=== PATIENT | male | born 1945 | race Hispanic/Latino ===

== ENCOUNTER 2018-05-06 03:59 | Inpatient (IN) | payer MEDICARE ==
[~2018-05-06] VITALS: Ht 170.2 cm; Wt 96.7 kg
[~2018-05-06 03:59] MED LIST: ALLOPURINOL100 MG; BUMETANIDE1 MG PO; CYCLOSPORINE25 M2; FERROUS SULFAT325 MG PO; JANUVIA100 MG PO; NEXIUM40 MG PO; NIZATIDINE PO; PRAVASTATIN SOD20 MG PO; SIROLIMUS PO; SULFAMETHOXAZOLE; TRIMETHOPRIM; VITAMIN D32000 UNIT PEG; Z.0.CRESTOR20 MG PO; Z.0.FOLIC ACID1 MG PO; Z.0.FUROSEMIDE20 MG PO; Z.0.METOPROLOL SUC10 PO; Z.0.MULTIVITAMINS1 E; Z.0.PREDNISONE5 MG PO; Z.0.RAMIPRIL2.5 MG PO; Z.0.SERTRALINE HCL25 PO; Z.0.TORSEMIDE20 MG PO; Z.0.VITAMIN D3 1,01 PO
--- OUTSIDE RECORDS SUMMARY | 2018-05-06 04:02 | XMS REPORT | Summary of Care ---
Author Author [facility] [place] Organization [facility] [place] Address Unknown Phone Unavailable Encounter HQ Encntr_alias(FIN) [id number] Date(s): 11/23/16 - 11/23/16 [facility] [place] [address] [phone] Discharge Disposition: Home or Self Care Attending Physician: Rodolfo Ho MD Vital Signs No data available for this section Problem List No data available for this section Allergies, Adverse Reactions, Alerts No data available for this section Medications No data available for this section Results No data available for this section Immunizations No data available for this section Procedures No data available for this section Social History No data available for this section Assessment and Plan No data available for this section
--- OUTSIDE RECORDS SUMMARY | 2018-05-06 04:02 | XMS REPORT | Summary of Care ---
Author Author [facility] [place] Organization [facility] [place] Address Unknown Phone Unavailable Encounter HQ Encntr_alexrhianna(FIN) [id number] Date(s): 09/26/17 - 09/26/17 [facility] [place] [address] [phone] Discharge Disposition: Home or Self Care Attending [...]
--- OUTSIDE RECORDS SUMMARY | 2018-05-06 04:02 | XMS REPORT | Continuity of Care Document ---
Author Author [facility] Address Unknown Phone Unavailable Problems Problem Status Onset Date Classification Date Reported Comments Source R52 - "PAIN, UNSPECIFIED" I65.02 - OCCLU Active 11/28/2016 [facility] [place] 719.47 - JOINT PAIN-ANKL Active 06/14/2011 [facility] [place] Medications Medication Details Route Status Patient Instructions Ordering Provider Order Date Source Allergies, Adverse Reactions, Alerts Substance Category Reaction Severity Reaction type Status Date Reported Comments Source Immunizations Immunization Date Given Site Status Last Updated Comments Source Results Order Name Results Value Reference Range Date Interpretation Comments Source Bladder US Bladder US EXAM: Bladder US, Renal transplant US HISTORY: - POST VOID, CRF, TRANSPLANT COMPARISON: 11/27/2016 Sonographic imaging of the transplant kidney and bladder were performed. FINDINGS: Transplant kidney measures 13 cm. There is no hydronephrosis. The renal transplant demonstrates stable hyperechoic focus possibly prominent medullary sinus fat or angiomyolipoma measuring up to 2 cm. The transplant renal artery and vein are patent. Peak systolic velocity in the transplant renal artery is 124 cm/s. There is an atrophic [place] left kidney. The urinary bladder appears normal. During the exam, the bladder volume was 214 mL. Post void, 30 mL remained. Transplant ureteral jet is patent. IMPRESSION: Stable appearance of the transplant kidney since the prior abdominal ultrasound from 11/27/2016. 03/07/2018 - - Read by: Corazon Newton MD Dictated Date/time: 03/07/18 14:29 Electronically Signed by: Corazon Newton MD 03/07/18 14:37 FINAL REPORT LEONEL Hoyos Renal transplant US Renal transplant US EXAM: Bladder US, Renal transplant US HISTORY: - POST VOID, CRF, TRANSPLANT COMPARISON: 11/27/2016 Sonographic imaging of the transplant kidney and bladder were performed. FINDINGS: Transplant kidney measures 13 cm. There is no hydronephrosis. The renal transplant demonstrates stable hyperechoic focus possibly prominent medullary sinus fat or angiomyolipoma measuring up to 2 cm. The transplant renal artery and vein are patent. Peak systolic velocity in the transplant renal artery is 124 cm/s. There is an atrophic [place] left kidney. The urinary bladder appears normal. During the exam, the bladder volume was 214 mL. Post void, 30 mL remained. Transplant ureteral jet is patent. IMPRESSION: Stable appearance of the transplant kidney since the prior abdominal ultrasound from 11/27/2016. 03/07/2018 - - Read by: Corazon Newton MD Dictated Date/time: 03/07/18 14:29 Electronically Signed by: Corazon Newton MD 03/07/18 14:37 FINAL REPORT CHAPIN Hoyos Knee 1-2 Views Bilateral DX Knee 1-2 Views Bilateral DX EXAM: Knee 1-2 Views Bilateral DX HISTORY: - M15.0 Primary generalized (osteo)arthritis COMPARISON: None 2 views of each knee. FINDINGS: No significant joint space narrowing. There is mild irregularity of the left medial femoral condyle. No fracture, dislocation or significant osteophyte formation. IMPRESSION: No acute abnormality. Mild irregularity of the left medial femoral condyle. Cannot exclude an overlying osteochondral lesion. Consider MRI if clinically indicated. 09/26/2017 - - Read by: Corazon Newton MD Dictated Date/time: 09/26/17 15:21 Electronically Signed by: Corazon Newton MD 09/26/17 15:23 FINAL REPORT LEONEL Hoyos Carotid artery Doppler bilat US Carotid artery Doppler bilat US EXAM: Carotid Ultrasound. INDICATION: Transient cerebral ischemia. TECHNIQUE: Grayscale and Doppler sonogram of the carotid arteries. Note: ICA=internal carotid artery. CCA=common carotid artery. PSV=peak systolic velocity. FINDINGS: Right: Mild atherosclerotic calcification involving the common carotid artery and internal carotid artery origins. CCA: PSV 79 cm/s. ICA: PSV 82 cm/s. ICA/CCA PSV ratio: 1.0. Vertebral artery: Cephalad flow. Left: Minimal left CCA internal carotid artery atherosclerotic calcification. CCA: PSV 83 cm/s. ICA: PSV 57 cm/s. ICA/CCA PSV ratio: 0.69. Vertebral artery: Cephalad flow. Other: None. IMPRESSION: 1. No hemodynamically significant carotid stenosis despite atherosclerotic calcification. Note: Stenosis measurements are made indirectly by velocities using 2003 SRU Consensus Conference for Duplex Ultrasound using the below criteria: Stenosis (%): ICA PSV (cm/s) ICA/CCA ratio <50 <125 <2 50-69 125-230 2-4 >70 >230 >4 12/01/2016 - - Read by: Melinda Lim MD Dictated Date/time: 12/01/16 13:22 Electronically Signed by: Melinda Lim MD 12/01/16 13:23 FINAL REPORT LEONEL Hoyos Neck wo contrast MRI Neck wo contrast MRI Magnetic resonance imaging neck soft tissues without contrast 12/01/2016 9:27 AM CDT Clinical: Right neck pain. Comparison: None available. Findings: The examination is limited by patient motion. Fatty replacement of the right parotid gland and right submandibular gland is noted. The remainder of the major salivary glands appear unremarkable. Mild symmetric enlargement of the thyroid gland is seen, without focal mass identified in this noncontrast MRI. The upper aerodigestive tract appears unremarkable. No prevertebral or retropharyngeal space abnormality is seen. The parapharyngeal spaces appear intact. No neck adenopathy is identified. Mild mucosal thickening is seen within the paranasal sinuses and right mastoid air cells. Multilevel cervical spine degenerative changes are present. 2 mm C5-C6 retrolisthesis and severe disc narrowing is present. 4 mm C7-T1 degenerative anterolisthesis is present with significant facet arthrosis. C3-C4 right facet arthrosis is also present with 2 mm anterolisthesis. Mild central canal stenosis is seen at these levels. Significant foraminal stenosis is seen at the C3-C4 and C5-C6 levels. IMPRESSION: 1. No neck mass or cervical adenopathy identified. 2. Nonspecific fat replacement of the right parotid gland and right submandibular gland. 3. Mild paranasal and right mastoid inflammation. 4. Multiple level cervical spine degenerative changes as above. 12/01/2016 - - Read by: Celso Hogan MD Dictated Date/time: 12/01/16 11:21 Electronically Signed by: Celso Hogan MD 12/01/16 12:13 FINAL REPORT LEONEL Hoyos Abdomen complete US Abdomen complete US EXAM: Abdomen complete US HISTORY: - R10.11 Right upper quadrant pain,M54.5 Low back pain COMPARISON: None FINDINGS: Liver: Measures 14.7 cm in length (normal: 13-17 cm). Echogenicity is unremarkable. Portal vein is patent with hepatopedal flow. Biliary: Several gallstones are present. There is no gallbladder wall thickening or sonographic Luke sign to suggest acute cholecystitis. There is no biliary duct dilation. Mid common bile duct measures 3 mm in diameter. Pancreas: No focal lesion. However, certain portions are obscured by overlying bowel gas and unable to be evaluated. Spleen: Measures 11.3 cm in maximal dimension (normal < 13 cm). No focal lesion is seen. Kidneys: The right kidney is absent. The left kidney measures 6.4 cm, atrophic and echogenic. There is a right lower quadrant renal transplant which demonstrates hyperechoic but not definitely calcified foci, possibly prominent medullary sinus fat or angiomyolipomas measuring up to 1.9 cm. renal artery and vein are patent in the hilum No hydronephrosis is seen. Vascular: Visualized portions of the IVC are patent. No obvious aneurysmal dilatation of the aorta. IMPRESSION: Cholelithiasis is noted without evidence of cholecystitis. There is a right lower quadrant renal transplant which demonstrates hyperechoic but not definitely calcified foci, possibly prominent medullary sinus fat or angiomyolipomas measuring up to 1.9 cm. 11/27/2016 - - Read by: Corazon Newton MD Dictated Date/time: 11/27/16 14:47 Electronically Signed by: Corazon Newton MD 11/27/16 14:52 FINAL REPORT CHAPIN Hoyos Spine lumbar series DX Spine lumbar series DX EXAM: Spine lumbar series DX HISTORY: - M54.5 Low back pain COMPARISON: 10/22/2012 There is grade 1 anterolisthesis of L5 on S1 with pars defects noted. There is disc space narrowing and degenerative changes of the L5-S1 endplate. No vertebral body height loss is seen. IMPRESSION: Grade 1 spondylolisthesis at L5-S1. No significant change. 11/23/2016 - - Read by: Corazon Newton MD Dictated Date/time: 11/23/16 15:27 Electronically Signed by: Corazon Newton MD 11/23/16 15:28 FINAL REPORT LEONEL Hoyos Hip bilat w pelvis and both lat hips DX Hip bilat w pelvis and both lat hips DX EXAM: Hip bilat w pelvis and both lat hips DX HISTORY: pain in left hip m25.552 - pain in right hip m25.551 COMPARISON: 10/22/2012 AP pelvis and lateral view of each hip. Severe osteoarthritic changes of both hips have worsened, including loss of joint space, marginal osteophytes, subchondral sclerosis, and subchondral cyst formation. There is remodeling of the femoral head bilaterally. There is no fracture, dislocation, or radiopaque foreign body. Soft tissues are unremarkable. IMPRESSION: Severe bilateral osteoarthritis, worsened since 2012. - 11/23/2016 - - Read by: Corazon Newton MD Dictated Date/time: 11/23/16 11:13 Electronically Signed by: Corazon Newton MD 11/23/16 11:15 FINAL REPORT CHAPIN Hoyos Chest 2 views Chest 2 views History: Hypertension. Comparison: None Findings: There is mild hazy ill-defined left basilar airspace opacity, otherwise, the lung hayes are clear. There is no pleural effusion or pneumothorax. The cardiomediastinal silhouette, lung volumes and pulmonary vasculature are within normal limits. There is no suspicious lytic or sclerotic lesion of the visualized bony structures, however, there is mild to moderate anterior sided degenerative disc disease involving the mid third region of the thoracic spine, right side greater than left. There is mild aortic knob atherosclerosis. Impression: 1. Left basilar airspace opacity, which may represent atelectasis, scarring or infiltrate. Consider correlation with CT chest to better evaluate if there are no prior exams available for comparison an clinically warranted. 10/22/2012 - - Read by: Eladio Engel Dictated Date/time: 10/22/12 09:51 Electronically Signed by: Eladio Engel MD 10/22/12 09:53 FINAL REPORT CHAP[facility] Spine lumbar minimum 4 views Spine lumbar minimum 4 views Examination: Lumbar spine, 5 views History: pain Comparison: None. Findings: Multiple views of the lumbar spine show 5 nonrib bearing lumbar vertebra. No acute compression fracture is seen. Grade 1 anterolisthesis of L5 over S1 by 12 mm is seen with superimposed severe disc height loss and nonmarginal osteophyte formation. Unilateral right L5 pars interarticularis defect is noted. Mild marginal osteophyte formation at L3-L4 is seen. Arterial calcifications are noted. IMPRESSION: Unilateral right L5 pars interarticularis defect with grade 1 anterolisthesis of L5 over S1 by 12 mm and superimposed severe degenerative disc disease. 10/22/2012 - - Read by: Dannie Alexander Dictated Date/time: 10/22/12 09:52 Electronically Signed by: Dannie Alexander MD 10/22/12 09:57 FINAL REPORT LEONEL Hoyos Spine sacrum AP and Lat Spine sacrum AP and Lat SACRUM SERIES CLINICAL HISTORY: Sacral pain. COMPARISON IMAGING: None. FINDINGS: Two views were submitted for evaluation. No fracture, dislocation, or radiopaque foreign body is seen. Alignment appears maintained. Soft tissues are unremarkable. IMPRESSION: No significant abnormality. 10/22/2012 - - Read by: Gerardo Cullen Dictated Date/time: 10/22/12 14:11 Electronically Signed by: Gerardo Cullen MD 10/22/12 14:12 FINAL REPORT LEONEL Hoyos Hip bilateral w pelvis and both lat hips Hip bilateral w pelvis and both lat hips BILATERAL HIP SERIES CLINICAL HISTORY: Bilateral hip pain. COMPARISON IMAGING: None. FINDINGS: Three views of the hips were submitted for interpretation. Severe osteoarthritic changes are present at both hips, including loss of joint space, marginal osteophytes, subchondral sclerosis, and subchondral cyst formation. There is no fracture, dislocation, or radiopaque foreign body. Soft tissues are unremarkable. IMPRESSION: Severe bilateral osteoarthritis. 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 CARTER 06/14/2011 Active LEONEL Hoyos [facility] [place] [facility] [id number] Rodolfo Ho 11/23/2016 11/24/2016 LEONEL Hoyos [facility] [place] [facility] [id number] Rodolfo Ho 11/27/2016 11/28/2016 [facility] [place] [facility] [place] [facility] [id number] Tao Ortega 12/01/2016 12/02/2016 MH [facility] [place] [facility] [place] [facility] [id number] Rodolfo Ho 09/26/2017 09/27/2017 MH [facility] [place] Procedures Procedure Code Date Perfomer Comments Source
--- OUTSIDE RECORDS SUMMARY | 2018-05-06 04:02 | XMS REPORT | Summary of Care ---
Author Author [facility] [place] Organization [facility] [place] Address Unknown Phone Unavailable Encounter HQ Encntr_alias(FIN) [id number] Date(s): 11/27/16 - 11/27/16 [facility] [place] [address] [phone] Discharge Disposition: Home or Self Care Attending [...]
--- OUTSIDE RECORDS SUMMARY | 2018-05-06 04:02 | XMS REPORT | Summary of Care ---
Author Author [facility] [place] Organization [facility] [place] Address Unknown Phone Unavailable Encounter HQ Encntr_alirhianna(FIN) [id number] Date(s): 12/01/16 - 12/01/16 [facility] [place] [address] [phone] Discharge Disposition: Home or Self Care Attending Physician: Tao Ortega MD Vital Signs No data available for [...]
--- OUTSIDE RECORDS SUMMARY | 2018-05-06 04:02 | XMS REPORT | Clinical Summary ---
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 Active calcium carbonate-vitamin Take 1 tablet 0 D3 (CALCIUM-VITAMIN D) by mouth 500 mg(1,250mg) -200 unit nightly . per tablet Active cycloSPORINE (SANDIMMUNE) Take 50 mg by 0 25 MG capsule mouth 2 (two) times daily Dose confirmed and verified with patient's daughter.. Active metoprolol (LOPRESSOR) Take 50 mg by 0 100 MG tablet mouth 2 (two) times daily . Active allopurinol (ZYLOPRIM) Take 100 mg 0 100 MG tablet by mouth 2 (two) times daily . Active FERROUS SULFATE (FEOSOL Take 325 mg 0 ORAL) by mouth daily . Active acetaminophen (TYLENOL) Take 500 mg 0 500 MG tabletIndications: by mouth Pain every 6 (six) hours as needed for Pain. Active pravastatin (PRAVACHOL) Take 80 mg by 0 80 MG tablet mouth nightly. Active omega-3 acid ethyl esters Take 1 g by 0 (LOVAZA) 1 gram capsule mouth 2 (two) times daily. Active MULTIVITAMIN (DAILY-DARLENE Take 1 tablet 0 ORAL) by mouth daily. Active traMADol (ULTRAM) 50 mg Take 50 mg by 0 tablet mouth 3 (three) times daily as needed for Pain. Active cholecalciferol, vitamin Take 1 0 D3, 2,000 unit Cap capsule by mouth daily. Active ondansetron (ZOFRAN ODT) Take 1 tablet 14 tablet 0 4 MG disintegrating (4 mg total) 7 tablet by mouth every 8 (eight) hours as needed for Nausea for up to 14 doses. Active esomeprazole (NEXIUM) 40 Take 1 30 capsule 0 MG capsule capsule (40 7 mg total) by mouth daily. Active amoxicillin (AMOXIL) 500 Take 1 60 capsule 0 MG capsule capsule (500 8 mg total) by mouth 2 (two) times daily To start lifelong after Levaquin completed. Active bumetanide (BUMEX) 2 MG Take 1 tablet 30 tablet 0 tablet (2 mg total) 8 by mouth daily. Active SITagliptin (JANUVIA) 50 Take 0.5 0 MG tablet tablets (25 8 mg total) by mouth daily. 01/05/2018 SITagliptin (JANUVIA) 50 Take 1 tablet 30 tablet 11 MG tablet (50 mg total) 7 by mouth daily. 01/29/2018 Discontinued amoxicillin (AMOXIL) 500 Take 1 60 capsule 11 MG capsule capsule (500 7 mg total) by mouth 2 (two) times daily To start lifelong after Levaquin completed. 01/29/2018 Discontinued bumetanide (BUMEX) 2 MG Take 1 tablet 60 tablet 2 tablet (2 mg total) 7 by mouth 2 (two) times daily. 01/29/2018 Discontinued SITagliptin (JANUVIA) 50 Take 50 mg by 0 MG tablet mouth daily. 02/03/2018 cefdinir (OMNICEF) 300 MG Take 1 5 capsule 0 capsule capsule (300 8 mg total) by mouth daily for 5 days. 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 Hx of kidney transplant--DDKT 200509/19/2013 Cellulitis 07/28/2013 Anemia of chronic disease 07/25/2012 Chronic diastolic CHF (congestive heart failure) 07/25/2012 ESRD (end stage renal disease) 07/12/2012 HTN (hypertension) 07/12/2012 Encounters Care Team Description Date Type Specialty Quintin Willett Jr., MD Kaldis, Arun Tomas MD Sepsis, due to unspecified organism (HCC) (Primary Dx); Cellulitis, unspecified cellulitis site; Hypertension, uncontrolled; Mixed hyperlipidemia; Type 2 diabetes mellitus with stage 3 chronic kidney disease, without long-term current use of insulin (HCC); Hx of kidney transplant--DDKT 200501/24/2018 [facility] Internal Medicine - Encounter 01/29/2018 after 05/05/2017 Family History Relation Name Status Comments Brother Alive 77 yrs old - good health Brother Alive 75 yrs old peritonitis / probs with prostate Brother Alive 61 yrs old - diabetes Daughter Alive 42 yrs old - good health Daughter Alive 29 yrs old - good health Daughter Alive 19 yrs old - good health Father Sepsis following thorasic hernia surgery (Age 64) Mother Cancer - gallbladder or liver (Age 74) Sister CoD - pneumonia (Age 35) Sister Alive ~ 72 yrs old - good health Sister Alive ~ 68 yrs old - good health Sister Alive ~ 65 yrs old - good health Son abdominal / GI problems (Age 3 mos ) Son Alive 40 yrs old - good health Son Alive 38 yrs old - good health Son Alive 30 yrs old - good health Social History Date Tobacco Use Types Packs/Day Years Used Never Smoker Smokeless Tobacco: Never Used Alcohol Use Drinks/Week oz/Week Comments No Sex Assigned at Date Recorded Not on file Industry Job Start Date Occupation Not on file Not on file Not on file Travel End Travel History Travel Start No recent travel history available. Last Filed Vital Signs Time Taken Vital Sign Reading 01/29/2018 11:55 AM CDT Blood Pressure 162/77 01/29/2018 11:55 AM CDT Pulse 58 01/29/2018 11:55 AM CDT Temperature 35.8 C (96.5 F) 01/29/2018 11:55 AM CDT Respiratory Rate 19 01/29/2018 11:55 AM CDT Oxygen Saturation 93% - Inhaled Oxygen - Concentration 01/29/2018 4:48 AM CDT Weight 93.7 kg (206 lb 9 oz) 01/24/2018 12:20 PM CDT Height 170.2 cm (5' 7") 01/29/2018 4:48 AM CDT Body Mass Index 32.35 Plan of Treatment Health Maintenance Due Date Last Done Comments INFLUENZA VACCINE 02/11/2018 Procedures Comments Procedure Name Priority Date/Time Associated Diagnosis RHYTHM STRIP - SCAN 01/30/2018 2:44 PM CDT POCT-GLUCOSE METER Routine 01/29/2018 11:59 AM CDT POCT-GLUCOSE METER Routine 01/29/2018 6:59 AM CDT CBC W/PLT COUNT & AUTO Routine 01/29/2018 DIFFERENTIAL 5:03 AM CDT CYCLOSPORINE LEVEL Routine 01/29/2018 5:03 AM CDT MAGNESIUM Routine 01/29/2018 5:03 AM CDT BASIC METABOLIC PANEL (7) Routine 01/29/2018 5:03 AM CDT CBC W/PLT COUNT & AUTO Routine 01/29/2018 DIFFERENTIAL 5:03 AM CDT US TRANSPLANT KIDNEY JASMIN 01/29/2018 12:20 AM CDT POCT-GLUCOSE METER Routine 01/28/2018 9:37 PM CDT POCT-GLUCOSE METER Routine 01/28/2018 5:52 PM CDT POCT-GLUCOSE METER Routine 01/28/2018 2:09 PM CDT CREATININE, RANDOM URINE Routine 01/28/2018 1:10 PM CDT PROTEIN, RANDOM URINE Routine 01/28/2018 1:10 PM CDT POCT-GLUCOSE METER Routine 01/28/2018 8:29 AM CDT CBC W/PLT COUNT & AUTO Routine 01/28/2018 DIFFERENTIAL 5:35 AM CDT CYCLOSPORINE LEVEL Routine 01/28/2018 5:35 AM CDT MAGNESIUM Routine 01/28/2018 5:35 AM CDT BASIC METABOLIC PANEL (7) Routine 01/28/2018 5:35 AM CDT CBC W/PLT COUNT & AUTO Routine 01/28/2018 DIFFERENTIAL 5:35 AM CDT POCT-GLUCOSE METER Routine 01/27/2018 9:05 PM CDT POCT-GLUCOSE METER Routine 01/27/2018 5:03 PM CDT POCT-GLUCOSE METER Routine 01/27/2018 12:05 PM CDT POCT-GLUCOSE METER Routine 01/27/2018 7:41 AM CDT CBC W/PLT COUNT & AUTO Routine 01/27/2018 DIFFERENTIAL 5:37 AM CDT CYCLOSPORINE LEVEL Routine 01/27/2018 5:37 AM CDT MAGNESIUM Routine 01/27/2018 5:37 AM CDT BASIC METABOLIC PANEL (7) Routine 01/27/2018 5:37 AM CDT CBC W/PLT COUNT & AUTO Routine 01/27/2018 DIFFERENTIAL 5:37 AM CDT URINALYSIS W/ MICROSCOPIC Routine 01/26/2018 9:50 PM CDT POCT-GLUCOSE METER Routine 01/26/2018 4:56 PM CDT POCT-GLUCOSE METER Routine 01/26/2018 12:09 PM CDT POCT-GLUCOSE METER Routine 01/26/2018 7:38 AM CDT CBC W/PLT COUNT & AUTO Routine 01/26/2018 DIFFERENTIAL 5:46 AM CDT CYCLOSPORINE LEVEL Routine 01/26/2018 5:46 AM CDT MAGNESIUM Routine 01/26/2018 5:46 AM CDT BASIC METABOLIC PANEL (7) Routine 01/26/2018 5:46 AM CDT CBC W/PLT COUNT & AUTO Routine 01/26/2018 DIFFERENTIAL 5:46 AM CDT POCT-GLUCOSE METER Routine 01/25/2018 9:16 PM CDT POCT-GLUCOSE METER Routine 01/25/2018 5:25 PM CDT URINE CULTURE Routine 01/25/2018 4:03 PM CDT POCT-GLUCOSE METER Routine 01/25/2018 12:48 PM CDT POCT-GLUCOSE METER Routine 01/25/2018 7:31 AM CDT CBC W/PLT COUNT & AUTO Routine 01/25/2018 DIFFERENTIAL 5:21 AM CDT CYCLOSPORINE LEVEL Routine 01/25/2018 5:21 AM CDT HEMOGLOBIN A1C Routine 01/25/2018 5:21 AM CDT MAGNESIUM Routine 01/25/2018 5:21 AM CDT BASIC METABOLIC PANEL (7) Routine 01/25/2018 5:21 AM CDT CBC W/PLT COUNT & AUTO Routine 01/25/2018 DIFFERENTIAL 5:21 AM CDT US TESTICULAR (SCROTUM) JASMIN 01/24/2018 10:35 PM CDT POCT-GLUCOSE METER Routine 01/24/2018 9:15 PM CDT LACTIC ACID, VENOUS, STAT 01/24/2018 WHOLE BLOOD 4:22 PM CDT POCT-GLUCOSE METER Routine 01/24/2018 4:15 PM CDT URINE CULTURE STAT 01/24/2018 3:25 PM CDT URINALYSIS W/ MICROSCOPIC STAT 01/24/2018 3:24 PM CDT BLOOD CULTURE STAT 01/24/2018 1:49 PM CDT POCT-LACTIC ACID, VENOUS Routine 01/24/2018 1:47 PM CDT CBC W/PLT COUNT & AUTO STAT 01/24/2018 DIFFERENTIAL 1:15 PM CDT BASIC METABOLIC PANEL (7) STAT 01/24/2018 1:15 PM CDT CBC W/PLT COUNT & AUTO STAT 01/24/2018 DIFFERENTIAL 1:15 PM CDT BLOOD CULTURE STAT 01/24/2018 1:15 PM CDT after 05/05/2017 Results * RHYTHM STRIP - SCAN (01/30/2018 2:44 PM CDT) Narrative Performed At * POC-Glucose meter (01/29/2018 11:59 AM CDT) Only the most recent of 19 results within the time period is included. POC-Glucose Meter 158 (H)Comment: TESTED AT 70 - 110 mg/dL [facility] [address] [facility] [id number] Specimen Blood Performing Organization Address City/State/Zipcode Phone Number [facility] [address] [place] [address] [facility] * CBC with platelet count + automated diff (01/29/2018 5:03 AM CDT) Only the most recent of 6 results within the time period is included. WBC 6.9 3.5 - 10.5 K/L [facility] RBC 4.85 4.63 - 6.08 M/L [facility] Hemoglobin 14.7 13.7 - 17.5 GM/DL [facility] Hematocrit 45.4 40.1 - 51.0 % [facility] MCV 93.6 (H) 79.0 - 92.2 fL [facility] MCH 30.3 25.7 - 32.2 pg [facility] MCHC 32.4 32.3 - 36.5 GM/DL [facility] RDW 14.3 11.6 - 14.4 % [facility] Platelets 214 150 - 450 K/CU MM [facility] MPV 11.2 9.4 - 12.4 fL [facility] nRBC 0 0 - 0 /100 WBC [facility] % Neutros 50 % [facility] % Lymphs 36 % [facility] % Monos 10 % [facility] % Eos 3 % [facility] % Baso 1 % [facility] # Neutros 3.44 1.78 - 5.38 K/L [facility] # Lymphs 2.46 1.32 - 3.57 K/L [facility] # Monos 0.69 0.30 - 0.82 K/L [facility] # Eos 0.21 0.04 - 0.54 K/L [facility] # Baso 0.04 0.01 - 0.08 K/L [facility] Immature 0 0 - 1 % [facility] Granulocytes-Relative [facility] Specimen Blood Performing Organization Address City/[facility]/Zipcode Phone Number [address] [address] [facility] * Cyclosporine level (01/29/2018 5:03 AM CDT) Only the most recent of 5 results within the time period is included. Cyclosporine Lvl 81 <400 ng/mL [facility] Specimen Blood Performing Organization Address City/State/Zipcode Phone Number [address] [address] [phone] [place] [address] * Magnesium (01/29/2018 5:03 AM CDT) Only the most recent of 5 results within the time period is included. Magnesium 2.1 1.6 - 2.6 mg/dL [facility] Specimen Blood Performing Organization Address City/[facility] Phone Number [address] [address] [phone] [place] [address] * Basic Metabolic Panel (01/29/2018 5:03 AM CDT) Only the most recent of 6 results within the time period is included. Sodium 137 136 - 145 meq/L [facility] Potassium 4.2 3.5 - 5.1 meq/L [facility] Chloride 100 98 - 107 meq/L [facility] CO2 26 22 - 29 meq/L [facility] BUN 62 (H) 7 - 21 mg/dL [facility] Creatinine 3.93 (H) 0.57 - 1.25 mg/dL [facility] Glucose 145 (H) 70 - 105 mg/dL [facility] Calcium 9.6 8.4 - 10.2 mg/dL [facility] EGFR 15Comment: ESTIMATED GFR IS mL/min/1.73 sq m [facility] NOT ACCURATE CREATININE [facility] CLEARANCE IN PREDICTING GLOMERULAR FILTRATION RATE. ESTIMATED GFR IS NOT APPLICABLE FOR DIALYSIS PATIENTS. Specimen Blood Performing Organization Address City/State/Zipcode Phone Number [facility] [address] [place] [address] [facility] * US transplant kidney (01/29/2018 12:20 AM CDT) Narrative Performed At FINAL REPORT [employer] Exam: Ultrasound transplant kidney Clinical History:sugey in renal transplant Comparison: Renal transplant ultrasound 04/28/2016. Technique: Renal transplant ultrasound was performed with duplex Doppler. Findings: There is a right lower quadrant renal transplant graft which measures 13.6 x 6.2 x 6.3 cm with cortical thickness of 1.0 cm. The echogenicity is isoechoic to the liver parenchyma. There is no hydronephrosis, perinephric fluid or shadowing stone. The urinary bladder is mildly distended with a volume of 92 cc. Color and spectral Doppler evaluation of the transplant kidney demonstrates patency and normal vascular waveforms of the external iliac artery, arterial anastomosis, main renal artery, external iliac vein, venous anastomosis, and main renal vein. There is no velocity gradient to suggest significant stenosis. The peak arterial systolic velocity in the iliac limb above and below the anastomosis is 150 cm/sec and 97.2 cm/sec respectively, 111 cm/sec at the anastomosis and 61.2 cm/sec in the main renal artery. The peak venous systolic velocity above and below the anastomosis is 39.7 cm/sec and 31.8 cm/sec respectively, 25.6 cm/sec at the anastomosis and 22.1 cm/sec in the main renal vein. The resistive indices in the upper, inter and lower polar regions are 0.75, 0.74 and 0.69 respectively. The acceleration times and acceleration indices are normal. Impression: Right lower quadrant transplant kidney without hydronephrosis. Unremarkable Doppler evaluation of the transplant kidney. Signed: Jaiden Bustos MD Report Verified Date/Time:01/29/2018 02:16:00 Reading Location: [facility] B1 C013Y CT Body Reading Room Procedure Note Interface, External Ris In - 01/29/2018 2:18 AM CDT FINAL REPORT Exam: Ultrasound transplant kidney Clinical History: sugey in renal transplant Comparison: Renal transplant ultrasound 04/28/2016. Technique: Renal transplant ultrasound was performed with duplex Doppler. Findings: There is a right lower quadrant renal transplant graft which measures 13.6 x 6.2 x 6.3 cm with cortical thickness of 1.0 cm. The echogenicity is isoechoic to the liver parenchyma. There is no hydronephrosis, perinephric fluid or shadowing stone. The urinary bladder is mildly distended with a volume of 92 cc. Color and spectral Doppler evaluation of the transplant kidney demonstrates patency and normal vascular waveforms of the external iliac artery, arterial anastomosis, main renal artery, external iliac vein, venous anastomosis, and main renal vein. There is no velocity gradient to suggest significant stenosis. The peak arterial systolic velocity in the iliac limb above and below the anastomosis is 150 cm/sec and 97.2 cm/sec respectively, 111 cm/sec at the anastomosis and 61.2 cm/sec in the main renal artery. The peak venous systolic velocity above and below the anastomosis is 39.7 cm/sec and 31.8 cm/sec respectively, 25.6 cm/sec at the anastomosis and 22.1 cm/sec in the main renal vein. The resistive indices in the upper, inter and lower polar regions are 0.75, 0.74 and 0.69 respectively. The acceleration times and acceleration indices are normal. Impression: Right lower quadrant transplant kidney without hydronephrosis. Unremarkable Doppler evaluation of the transplant kidney. Signed: Jaiden Bustos MD Report Verified Date/Time: 01/29/2018 02:16:00 Reading Location: [address] Body Reading Room Performing Organization Address City/State/Zipcode Phone Number [facility] * Protein, random urine (01/28/2018 1:10 PM CDT) Protein, Urine 58 (H) 0 - 14 mg/dL [facility] Specimen Urine - Urine, Clean Catch Performing Organization Address City/State/Zipcode Phone Number [facility] [address] [place] [address] [facility] * Creatinine, random urine (01/28/2018 1:10 PM CDT) Creatinine, Ur 54.8 mg/dL [facility] Specimen Urine - Urine, Clean Catch Narrative Performed At Reference Range: No Normals [facility] Performing Organization Address [facility] Phone Number [facility] [address] [place] [address] [facility] * Urinalysis w/Microscopic (01/26/2018 9:50 PM CDT) Only the most recent of 2 results within the time period is included. Color, UA Light Yellow [facility] Clarity, UA Clear [facility] Specific [place], UA 1.004 1.001 - 1.035 [facility] pH, UA 7.0 5.0 - 8.0 [facility] Protein, UA 30 mg/dL (A) Negative [facility] Glucose, UA Negative Negative [facility] Ketones, UA Negative Negative [facility] Bilirubin, UA Negative Negative [facility] Blood, UA Trace (A) Negative [facility] Nitrite, UA Negative Negative [facility] Leukocytes, UA Negative Negative [facility] Urobilinogen, UA 0.2 0.2 - 1.0 mg/dL [facility] RBC, UA <1 /HPF [facility] WBC, UA <1 /HPF [facility] Specimen Source [facility] Specimen Urine Performing Organization Address City/[facility] Phone Number [facility] [address] [place] [address] [facility] * Urine culture (01/25/2018 4:03 PM CDT) Only the most recent of 2 results within the time period is included. Result No growth [facility] Gram Stain Result No White blood cells seen [facility] Gram Stain Result No organisms seen [facility] Specimen Urine - Urine, Clean Catch Performing Organization Address City/State/Zipcode Phone Number [facility] [address] [place] [address] [facility] * Hemoglobin A1c (01/25/2018 5:21 AM CDT) Hemoglobin A1C 6.8 (H) 4.3 - 6.1 % [facility] Specimen Blood - Arm, Right Performing Organization Address City/[facility]/Zipcode Phone Number [facility] [address] [place] [address] [facility] * US testicular (scrotum) (01/24/2018 10:35 PM CDT) Narrative Performed At FINAL REPORT [facility] Exam: Testicular ultrasound. Clinical History: Scrotal cellulitis. Technique: Testicular ultrasound was performed. Color and spectral Doppler ultrasound was also performed. Comparison is made to prior study dated 01/01/2017. Findings: There is diffuse bilateral scrotal wall thickening and hyperemia. There is no fluid collection to suggest an abscess. RIGHT: The right testicle is normal in size and echogenicity measuring 3.2 x 1.5 x 2 cm. The right epididymis is normal in size. There is mild heterogeneity of the epididymal tail. The right epididymal head measures up to 0.9 cm. There is a 3 mm epididymal head cyst or spermatocele. Color and spectral Doppler evaluation of the right testicle demonstrates normal vascular flow. There is mild hyperemia within the epididymal tail. There is no varicocele or hydrocele. LEFT: The left testicle is normal in size and echogenicity measuring 3.0 x 1.3 x 2.6 cm. The left epididymis is normal in size. There is mild heterogeneity of the epididymal body. The left epididymal head measures up to 1.3 and contains a 5 mm epididymal head cyst or spermatocele. There is a 4 mm epididymal tail cyst versus spermatocele. Color and spectral Doppler evaluation of the left testicle demonstrates normal vascular flow. There is mild hyperemia within the epididymal body. There is no varicocele or hydrocele. Impression: Diffuse scrotal cellulitis. No abscess. Mild bilateral epididymitis. Bilateral subcentimeter epididymal head cysts or spermatoceles. No orchitis or evidence of testicular torsion. Signed: Jaiden Bustos MD Report Verified Date/Time:01/25/2018 05:13:46 Reading Location: [address] Transitional Reading Room Procedure Note Interface, External Ris In - 01/25/2018 5:16 AM CDT FINAL REPORT Exam: Testicular ultrasound. Clinical History: Scrotal cellulitis. Technique: Testicular ultrasound was performed. Color and spectral Doppler ultrasound was also performed. Comparison is made to prior study dated 01/01/2017. Findings: There is diffuse bilateral scrotal wall thickening and hyperemia. There is no fluid collection to suggest an abscess. RIGHT: The right testicle is normal in size and echogenicity measuring 3.2 x 1.5 x 2 cm. The right epididymis is normal in size. There is mild heterogeneity of the epididymal tail. The right epididymal head measures up to 0.9 cm. There is a 3 mm epididymal head cyst or spermatocele. Color and spectral Doppler evaluation of the right testicle demonstrates normal vascular flow. There is mild hyperemia within the epididymal tail. There is no varicocele or hydrocele. LEFT: The left testicle is normal in size and echogenicity measuring 3.0 x 1.3 x 2.6 cm. The left epididymis is normal in size. There is mild heterogeneity of the epididymal body. The left epididymal head measures up to 1.3 and contains a 5 mm epididymal head cyst or spermatocele. There is a 4 mm epididymal tail cyst versus spermatocele. Color and spectral Doppler evaluation of the left testicle demonstrates normal vascular flow. There is mild hyperemia within the epididymal body. There is no varicocele or hydrocele. Impression: Diffuse scrotal cellulitis. No abscess. Mild bilateral epididymitis. Bilateral subcentimeter epididymal head cysts or spermatoceles. No orchitis or evidence of testicular torsion. Signed: Jaiden Bustos MD Report Verified Date/Time: 01/25/2018 05:13:46 Reading Location: [address] Transitional Reading Room Performing Organization Address City/State/Zipcode Phone Number [facility] * Lactic acid, venous, whole blood (01/24/2018 4:22 PM CDT) Lactate, Venous 0.9Comment: Specimen slightly 0.5 - 2.2 mmol/L [facility] hemolyzed [facility] Specimen Blood - Arm, Right Narrative Performed At Effective 09/15/2015: Units/Reference Range Change [facility] New: 0.5-2.2 mmol/LPrevious: 5-20 mg/dL [facility] Performing Organization Address City/[facility] Phone Number [address] [address] [phone] [place] [address] * Blood culture (01/24/2018 1:49 PM CDT) Only the most recent of 2 results within the time period is included. Result No growth in 5 days [facility] Specimen Blood - Arm, Right Performing Organization Address City/[facility] Phone Number [address] [phone] [place] [address] * POC-Lactic Acid, Venous (01/24/2018 1:47 PM CDT) POC-Lactic Acid, Venous 1.8 (H)Comment: TESTED AT 0.9 - 1.7 mmol/L [facility] [address] [place] [id number] Specimen Blood Performing Organization Address [facility] Phone Number [address] [address] [phone] [place] [address] after 05/05/2017 Insurance Payer Benefit Subscriber ID Type Phone Address Plan / Group [facility] xxxxxxxxx MEDICARE [place] CARE [place] [facility] [place] xxxxxxxxx Medicaid OF [place] Advance Directives For more information, please contact: [facility] [address] [place], [place] [id number] Date Inactivated Comments Code Status Date Activated 01/29/2018 3:03 PM Full Code 01/24/2018 3:29 PM This code status was determined by: Patient 01/05/2017 6:49 PM Full Code 01/01/2017 8:02 AM This code status was determined by: Patient 05/01/2016 4:12 PM Full Code 04/26/2016 2:48 AM This code status was determined by: Patient 03/29/2016 9:11 PM Full Code 03/28/2016 5:25 AM This code status was determined by: Patient 02/02/2016 8:23 PM Full Code 02/01/2016 11:29 PM This code status was determined by: Patient
--- OUTSIDE RECORDS SUMMARY | 2018-05-06 04:03 | XMS REPORT ---
Author Author [facility] Address Unknown Phone Unavailable Care Team Providers Care Brim Rounder Name Role Phone JANIESIS Unavailable Unavailable SIS SNELL Unavailable Unavailable NATALI LAWRENCE Unavailable Unavailable SANDRA PEÑALOZA Unavailable Unavailable Problems This patient has no known problems. Allergies, Adverse Reactions, Alerts This patient has no known allergies or adverse reactions. Medications This patient has no known medications. Results Test Description Test Time Test Comments Text Results Atomic Results Result Comments BLOOD CULTURE 2018-01-29 18:00:00 CULTURE (BEAKER) (test zskb=7016) No growth in 5 days BLOOD [id number] 18:00:00* Test Item Value Reference Range Comments CULTURE (BEAKER) (test jgms=3308) No growth in 5 days POCT-GLUCOSE [id number] 12:09:00* Test Item Value Reference Range Comments POC-GLUCOSE METER (BEAKER) (test dcic=8665) 158 mg/dL 70-110 TESTED AT [address] [address] CYCLOSPORINE [id number] 09:29:00* Test Item Value Reference Range Comments CYCLOSPORINE BLOOD (BEAKER) (test ybtj=138) 81 ng/mL <400 BASIC METABOLIC [id number] 09:01:00* Test Item Value Reference Range Comments SODIUM (BEAKER) (test burf=915) 137 meq/L 136-145 POTASSIUM (BEAKER) (test svyw=839) 4.2 meq/L 3.5-5.1 CHLORIDE (BEAKER) (test lqgy=877) 100 meq/L 98-107 CO2 (BEAKER) (test mglu=269) 26 meq/L 22-29 BLOOD UREA NITROGEN (BEAKER) (test uriv=393) 62 mg/dL 7-21 CREATININE (BEAKER) (test mrhd=362) 3.93 mg/dL 0.57-1.25 GLUCOSE RANDOM (BEAKER) (test wmfy=432) 145 mg/dL 70-105 CALCIUM (BEAKER) (test oubq=659) 9.6 mg/dL 8.4-10.2 EGFR (BEAKER) (test pmpe=6981) 15 mL/min/1.73 sq m ESTIMATED GFR IS NOT ACCURATE CREATININE CLEARANCE IN PREDICTING GLOMERULAR FILTRATION RATE. ESTIMATED GFR IS NOT APPLICABLE FOR DIALYSIS PATIENTS. [id number] 09:00:00* Test Item Value Reference Range Comments MAGNESIUM (BEAKER) (test xcfx=775) 2.1 mg/dL 1.6-2.6 POCT-GLUCOSE [id number] 07:40:00* Test Item Value Reference Range Comments POC-GLUCOSE METER (BEAKER) (test keeq=7326) 122 mg/dL 70-110 TESTED AT [facility] [address] [facility] [address] CBC W/PLT COUNT & AUTO [id number] 05:38:00* Test Item Value Reference Range Comments WHITE BLOOD CELL COUNT (BEAKER) (test bpgz=971) 6.9 K/ L 3.5-10.5 RED BLOOD CELL COUNT (BEAKER) (test eovd=597) 4.85 M/ L 4.63-6.08 HEMOGLOBIN (BEAKER) (test qjqx=187) 14.7 GM/DL 13.7-17.5 HEMATOCRIT (BEAKER) (test ivqo=693) 45.4 % 40.1-51.0 MEAN CORPUSCULAR VOLUME (BEAKER) (test yppu=000) 93.6 fL 79.0-92.2 MEAN CORPUSCULAR HEMOGLOBIN (BEAKER) (test ccof=245) 30.3 pg 25.7-32.2 MEAN CORPUSCULAR HEMOGLOBIN CONC (BEAKER) (test fbda=981) 32.4 GM/DL 32.3-36.5 RED CELL DISTRIBUTION WIDTH (BEAKER) (test fcvl=362) 14.3 % 11.6-14.4 PLATELET COUNT (BEAKER) (test czzj=870) 214 K/CU MM 150-450 MEAN PLATELET VOLUME (BEAKER) (test sjpz=398) 11.2 fL 9.4-12.4 NUCLEATED RED BLOOD CELLS (BEAKER) (test kkgs=700) 0 /100 WBC 0-0 NEUTROPHILS RELATIVE PERCENT (BEAKER) (test ncgp=677) 50 % LYMPHOCYTES RELATIVE PERCENT (BEAKER) (test uzvj=735) 36 % MONOCYTES RELATIVE PERCENT (BEAKER) (test qsbd=211) 10 % EOSINOPHILS RELATIVE PERCENT (BEAKER) (test cdlb=629) 3 % BASOPHILS RELATIVE PERCENT (BEAKER) (test qpgq=807) 1 % NEUTROPHILS ABSOLUTE COUNT (BEAKER) (test sfyt=589) 3.44 K/ L 1.78-5.38 LYMPHOCYTES ABSOLUTE COUNT (BEAKER) (test shmp=572) 2.46 K/ L 1.32-3.57 MONOCYTES ABSOLUTE COUNT (BEAKER) (test xxve=104) 0.69 K/ L 0.30-0.82 EOSINOPHILS ABSOLUTE COUNT (BEAKER) (test ojhd=111) 0.21 K/ L 0.04-0.54 BASOPHILS ABSOLUTE COUNT (BEAKER) (test ykmh=936) 0.04 K/ L 0.01-0.08 IMMATURE GRANULOCYTES-RELATIVE PERCENT (BEAKER) (test llyr=1161) 0 % 0-1 U/S, TRANSPLANT, [id number] 02:16:00Reason for exam:->sugey in renal transplantShould this be performed at the bedside?->NoFINAL REPORT Exam: Ultrasound transplant kidney Clinical History: [...] The peak venous systolic velocity above and be low the anastomosis is 39.7 cm/sec and 31.8 cm/sec respectively, 25.6 cm/sec at the anastomosis and 22.1 cm/sec in the main renal vein. The resistive indices in the upper, inter and lower polar regions are 0.75, 0.74 and 0.69 respectively. The acceleration times and acceleration indices are normal. 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 Signed: Amie Bustoseport Verified Date/Adrián e: 01/29/2018 02:16:00 Reading Location: [facility] C013Y NM Body Reading Room E lectronically signed by: AMIE BUSTOS MD on 01/29/2018 02:16 AM POCT- GLUCOSE [id number] 21:47:00* Test Item Value Reference Range Comments POC-GLUCOSE METER (BEAKER) (test pfjb=1996) 188 mg/dL 70-110 TESTED AT [facility] [address] [facility] [address] POCT-GLUCOSE [id number] 17:55:00* Test Item Value Reference Range Comments POC-GLUCOSE METER (BEAKER) (test dswm=2485) 167 mg/dL 70-110 TESTED AT [facility] [address] [facility] [address] CREATININE, RANDOM [id number] 14:45:00* Test Item Value Reference Range Comments CREATININE URINE (BEAKER) (test rvqs=916) 54.8 mg/dL Reference Range: No NormalsPROTEIN, RANDOM [id number] 14:45:00* Test Item Value Reference Range Comments PROTEIN, URINE (BEAKER) (test kdmo=9722) 58 mg/dL 0-14 POCT-GLUCOSE [id number] 14:13:00* Test Item Value Reference Range Comments POC-GLUCOSE METER (BEAKER) (test gbyl=8860) 181 mg/dL 70-110 TESTED AT [address] [address] CYCLOSPORINE [id number] 10:07:00* Test Item Value Reference Range Comments CYCLOSPORINE BLOOD (BEAKER) (test qgol=310) 293 ng/mL <400 POCT-GLUCOSE [id number] 08:38:00* Test Item Value Reference Range Comments POC-GLUCOSE METER (BEAKER) (test damh=1149) 107 mg/dL 70-110 TESTED AT [address] [place] [address] BASIC METABOLIC [id number] 06:34:00* Test Item Value Reference Range Comments SODIUM (BEAKER) (test evxs=696) 135 meq/L 136-145 POTASSIUM (BEAKER) (test jxxu=367) 3.8 meq/L 3.5-5.1 CHLORIDE (BEAKER) (test wxke=328) 99 meq/L 98-107 CO2 (BEAKER) (test whqe=857) 27 meq/L 22-29 BLOOD UREA NITROGEN (BEAKER) (test tdxb=255) 67 mg/dL 7-21 CREATININE (BEAKER) (test ihds=127) 4.18 mg/dL 0.57-1.25 GLUCOSE RANDOM (BEAKER) (test aaif=162) 137 mg/dL 70-105 CALCIUM (BEAKER) (test koqa=084) 8.7 mg/dL 8.4-10.2 EGFR (BEAKER) (test iopm=0425) 14 mL/min/1.73 sq m ESTIMATED GFR IS NOT ACCURATE CREATININE CLEARANCE IN PREDICTING GLOMERULAR FILTRATION RATE. ESTIMATED GFR IS NOT APPLICABLE FOR DIALYSIS PATIENTS. [id number] 06:32:00* Test Item Value Reference Range Comments MAGNESIUM (BEAKER) (test wklv=705) 2.0 mg/dL 1.6-2.6 CBC W/PLT COUNT & AUTO [id number] 06:03:00* Test Item Value Reference Range Comments WHITE BLOOD CELL COUNT (BEAKER) (test tusi=133) 5.0 K/ L 3.5-10.5 RED BLOOD CELL COUNT (BEAKER) (test etuw=700) 4.36 M/ L 4.63-6.08 HEMOGLOBIN (BEAKER) (test pkwd=994) 13.1 GM/DL 13.7-17.5 HEMATOCRIT (BEAKER) (test main=358) 40.3 % 40.1-51.0 MEAN CORPUSCULAR VOLUME (BEAKER) (test dlun=920) 92.4 fL 79.0-92.2 MEAN CORPUSCULAR HEMOGLOBIN (BEAKER) (test ihoi=742) 30.0 pg 25.7-32.2 MEAN CORPUSCULAR HEMOGLOBIN CONC (BEAKER) (test uzzh=721) 32.5 GM/DL 32.3-36.5 RED CELL DISTRIBUTION WIDTH (BEAKER) (test klhf=765) 14.2 % 11.6-14.4 PLATELET COUNT (BEAKER) (test qccw=633) 171 K/CU MM 150-450 MEAN PLATELET VOLUME (BEAKER) (test uqti=918) 11.0 fL 9.4-12.4 NUCLEATED RED BLOOD CELLS (BEAKER) (test ymyb=974) 0 /100 WBC 0-0 NEUTROPHILS RELATIVE PERCENT (BEAKER) (test vgdp=838) 51 % LYMPHOCYTES RELATIVE PERCENT (BEAKER) (test iunf=521) 33 % MONOCYTES RELATIVE PERCENT (BEAKER) (test waro=739) 11 % EOSINOPHILS RELATIVE PERCENT (BEAKER) (test oowf=652) 4 % BASOPHILS RELATIVE PERCENT (BEAKER) (test lgjw=083) 0 % NEUTROPHILS ABSOLUTE COUNT (BEAKER) (test hfbi=427) 2.56 K/ L 1.78-5.38 LYMPHOCYTES ABSOLUTE COUNT (BEAKER) (test bsai=722) 1.66 K/ L 1.32-3.57 MONOCYTES ABSOLUTE COUNT (BEAKER) (test eilb=498) 0.57 K/ L 0.30-0.82 EOSINOPHILS ABSOLUTE COUNT (BEAKER) (test csmh=802) 0.21 K/ L 0.04-0.54 BASOPHILS ABSOLUTE COUNT (BEAKER) (test cpnh=770) 0.01 K/ L 0.01-0.08 IMMATURE GRANULOCYTES-RELATIVE PERCENT (BEAKER) (test ouqq=3639) 1 % 0-1 POCT-GLUCOSE [id number] 21:18:00* Test Item Value Reference Range Comments POC-GLUCOSE METER (BEAKER) (test raem=2202) 149 mg/dL 70-110 TESTED AT [address] [address] POCT-GLUCOSE [id number] 17:09:00* Test Item Value Reference Range Comments POC-GLUCOSE METER (BEAKER) (test ljra=2976) 156 mg/dL 70-110 TESTED AT [address] [address] POCT-GLUCOSE [id number] 12:15:00* Test Item Value Reference Range Comments POC-GLUCOSE METER (BEAKER) (test czmi=1696) 181 mg/dL 70-110 TESTED AT [address] [address] URINE [id number] 11:41:00* Test Item Value Reference Range Comments CULTURE (BEAKER) (test dhbx=7235) No growth GRAM STAIN RESULT (BEAKER) (test rqse=1502) No White blood cells seen GRAM STAIN RESULT (BEAKER) (test xiib=47606) No organisms seen CYCLOSPORINE [id number] 09:40:00* Test Item Value Reference Range Comments CYCLOSPORINE BLOOD (BEAKER) (test pani=274) 111 ng/mL <400 BASIC METABOLIC [id number] 08:09:00* Test Item Value Reference Range Comments SODIUM (BEAKER) (test nkmv=090) 137 meq/L 136-145 POTASSIUM (BEAKER) (test bzpj=361) 3.8 meq/L 3.5-5.1 CHLORIDE (BEAKER) (test qnqs=225) 98 meq/L 98-107 CO2 (BEAKER) (test viho=705) 27 meq/L 22-29 BLOOD UREA NITROGEN (BEAKER) (test xcut=039) 73 mg/dL 7-21 CREATININE (BEAKER) (test xsir=394) 4.41 mg/dL 0.57-1.25 GLUCOSE RANDOM (BEAKER) (test byjj=117) 123 mg/dL 70-105 CALCIUM (BEAKER) (test mehf=169) 8.8 mg/dL 8.4-10.2 EGFR (BEAKER) (test tkpz=3735) 13 mL/min/1.73 sq m ESTIMATED GFR IS NOT ACCURATE CREATININE CLEARANCE IN PREDICTING GLOMERULAR FILTRATION RATE. ESTIMATED GFR IS NOT APPLICABLE FOR DIALYSIS PATIENTS. POCT-GLUCOSE [id number] 07:52:00* Test Item Value Reference Range Comments POC-GLUCOSE METER (BEAKER) (test pssa=9281) 102 mg/dL 70-110 TESTED AT [facility] [address] [facility] [address] [id number] 07:46:00* Test Item Value Reference Range Comments MAGNESIUM (BEAKER) (test roqh=999) 2.0 mg/dL 1.6-2.6 CBC W/PLT COUNT & AUTO [id number] 07:17:00* Test Item Value Reference Range Comments WHITE BLOOD CELL COUNT (BEAKER) (test dgrv=782) 5.5 K/ L 3.5-10.5 RED BLOOD CELL COUNT (BEAKER) (test bugm=647) 4.14 M/ L 4.63-6.08 HEMOGLOBIN (BEAKER) (test emsf=363) 12.6 GM/DL 13.7-17.5 HEMATOCRIT (BEAKER) (test ypnj=034) 38.7 % 40.1-51.0 MEAN CORPUSCULAR VOLUME (BEAKER) (test ioio=152) 93.5 fL 79.0-92.2 MEAN CORPUSCULAR HEMOGLOBIN (BEAKER) (test imzt=935) 30.4 pg 25.7-32.2 MEAN CORPUSCULAR HEMOGLOBIN CONC (BEAKER) (test jkbx=395) 32.6 GM/DL 32.3-36.5 RED CELL DISTRIBUTION WIDTH (BEAKER) (test jpfy=609) 14.4 % 11.6-14.4 PLATELET COUNT (BEAKER) (test masl=523) 150 K/CU MM 150-450 MEAN PLATELET VOLUME (BEAKER) (test eakh=249) 12.2 fL 9.4-12.4 NUCLEATED RED BLOOD CELLS (BEAKER) (test xdrd=030) 0 /100 WBC 0-0 NEUTROPHILS RELATIVE PERCENT (BEAKER) (test rxym=025) 58 % LYMPHOCYTES RELATIVE PERCENT (BEAKER) (test scef=343) 30 % MONOCYTES RELATIVE PERCENT (BEAKER) (test kabq=769) 10 % EOSINOPHILS RELATIVE PERCENT (BEAKER) (test xdhd=544) 2 % BASOPHILS RELATIVE PERCENT (BEAKER) (test xhqf=170) 0 % NEUTROPHILS ABSOLUTE COUNT (BEAKER) (test beyp=597) 3.19 K/ L 1.78-5.38 LYMPHOCYTES ABSOLUTE COUNT (BEAKER) (test rhuz=127) 1.62 K/ L 1.32-3.57 MONOCYTES ABSOLUTE COUNT (BEAKER) (test kydz=583) 0.53 K/ L 0.30-0.82 EOSINOPHILS ABSOLUTE COUNT (BEAKER) (test uzjv=357) 0.12 K/ L 0.04-0.54 BASOPHILS ABSOLUTE COUNT (BEAKER) (test jbdd=283) 0.01 K/ L 0.01-0.08 IMMATURE GRANULOCYTES-RELATIVE PERCENT (BEAKER) (test iqul=8561) 0 % 0-1 URINALYSIS W/ [id number] 22:25:00* Test Item Value Reference Range Comments COLOR (BEAKER) (test sokj=771) Light Yellow CLARITY (BEAKER) (test unwn=813) Clear SPECIFIC GRAVITY UA (BEAKER) (test eaeu=917) 1.004 1.001-1.035 PH UA (BEAKER) (test gxcy=451) 7.0 5.0-8.0 PROTEIN UA (BEAKER) (test xrjo=923) 30 mg/dL Negative GLUCOSE UA (BEAKER) (test okea=329) Negative Negative KETONES UA (BEAKER) (test uppr=564) Negative Negative BILIRUBIN UA (BEAKER) (test embs=805) Negative Negative BLOOD UA (BEAKER) (test qplv=564) Trace Negative NITRITE UA (BEAKER) (test rnmb=532) Negative Negative LEUKOCYTE ESTERASE UA (BEAKER) (test ktey=194) Negative Negative UROBILINOGEN UA (BEAKER) (test vzcl=558) 0.2 mg/dL 0.2-1.0 RBC UA (BEAKER) (test eqhv=806) < /HPF WBC UA (BEAKER) (test qmnc=332) < /HPF SOURCE(BEAKER) (test akoq=8625) POCT-GLUCOSE [id number] 17:00:00* Test Item Value Reference Range Comments POC-GLUCOSE METER (BEAKER) (test bjkz=7981) 175 mg/dL 70-110 TESTED AT [address] [address] CYCLOSPORINE [id number] 12:35:00* Test Item Value Reference Range Comments CYCLOSPORINE BLOOD (BEAKER) (test elli=235) 83 ng/mL <400 POCT-GLUCOSE [id number] 12:18:00* Test Item Value Reference Range Comments POC-GLUCOSE METER (BEAKER) (test avdf=9196) 179 mg/dL 70-110 TESTED AT [place] [id number] [facility] [address] POCT-GLUCOSE [id number] 07:45:00* Test Item Value Reference Range Comments POC-GLUCOSE METER (BEAKER) (test pmcb=6560) 128 mg/dL 70-110 TESTED AT [place] [id number] [facility] [address] BASIC METABOLIC [id number] 07:01:00* Test Item Value Reference Range Comments SODIUM (BEAKER) (test tznh=187) 134 meq/L 136-145 POTASSIUM (BEAKER) (test ipzb=017) 3.7 meq/L 3.5-5.1 CHLORIDE (BEAKER) (test tdno=179) 96 meq/L 98-107 CO2 (BEAKER) (test yzjm=134) 27 meq/L 22-29 BLOOD UREA NITROGEN (BEAKER) (test zgvu=723) 71 mg/dL 7-21 CREATININE (BEAKER) (test iwyk=783) 3.91 mg/dL 0.57-1.25 GLUCOSE RANDOM (BEAKER) (test flvg=319) 140 mg/dL 70-105 CALCIUM (BEAKER) (test qqxp=496) 9.1 mg/dL 8.4-10.2 EGFR (BEAKER) (test sbul=5014) 15 mL/min/1.73 sq m ESTIMATED GFR IS NOT ACCURATE CREATININE CLEARANCE IN PREDICTING GLOMERULAR FILTRATION RATE. ESTIMATED GFR IS NOT APPLICABLE FOR DIALYSIS PATIENTS. [id number] 06:59:00* Test Item Value Reference Range Comments MAGNESIUM (BEAKER) (test xjvn=616) 2.0 mg/dL 1.6-2.6 CBC W/PLT COUNT & AUTO [id number] 06:23:00* Test Item Value Reference Range Comments WHITE BLOOD CELL COUNT (BEAKER) (test twkr=619) 7.7 K/ L 3.5-10.5 RED BLOOD CELL COUNT (BEAKER) (test xwfp=891) 4.44 M/ L 4.63-6.08 HEMOGLOBIN (BEAKER) (test xxyp=780) 13.2 GM/DL 13.7-17.5 HEMATOCRIT (BEAKER) (test kaau=243) 41.6 % 40.1-51.0 MEAN CORPUSCULAR VOLUME (BEAKER) (test ryqt=712) 93.7 fL 79.0-92.2 MEAN CORPUSCULAR HEMOGLOBIN (BEAKER) (test tbvf=592) 29.7 pg 25.7-32.2 MEAN CORPUSCULAR HEMOGLOBIN CONC (BEAKER) (test peda=760) 31.7 GM/DL 32.3-36.5 RED CELL DISTRIBUTION WIDTH (BEAKER) (test xbnm=478) 14.6 % 11.6-14.4 PLATELET COUNT (BEAKER) (test cdbv=041) 149 K/CU MM 150-450 MEAN PLATELET VOLUME (BEAKER) (test iklg=644) 11.2 fL 9.4-12.4 NUCLEATED RED BLOOD CELLS (BEAKER) (test ltnb=406) 0 /100 WBC 0-0 NEUTROPHILS RELATIVE PERCENT (BEAKER) (test rjxo=512) 67 % LYMPHOCYTES RELATIVE PERCENT (BEAKER) (test kadb=536) 22 % MONOCYTES RELATIVE PERCENT (BEAKER) (test aujw=673) 8 % EOSINOPHILS RELATIVE PERCENT (BEAKER) (test ekhb=160) 2 % BASOPHILS RELATIVE PERCENT (BEAKER) (test bpko=087) 0 % NEUTROPHILS ABSOLUTE COUNT (BEAKER) (test cuaj=441) 5.19 K/ L 1.78-5.38 LYMPHOCYTES ABSOLUTE COUNT (BEAKER) (test eotr=395) 1.68 K/ L 1.32-3.57 MONOCYTES ABSOLUTE COUNT (BEAKER) (test wkww=451) 0.62 K/ L 0.30-0.82 EOSINOPHILS ABSOLUTE COUNT (BEAKER) (test qgbb=016) 0.17 K/ L 0.04-0.54 BASOPHILS ABSOLUTE COUNT (BEAKER) (test blgh=695) 0.01 K/ L 0.01-0.08 IMMATURE GRANULOCYTES-RELATIVE PERCENT (BEAKER) (test qkjx=2003) 0 % 0-1 POCT-GLUCOSE [id number] 21:27:00* Test Item Value Reference Range Comments POC-GLUCOSE METER (BEAKER) (test bchp=6376) 205 mg/dL 70-110 TESTED AT [place] [id number] POCT-GLUCOSE [id number] 17:29:00* Test Item Value Reference Range Comments POC-GLUCOSE METER (BEAKER) (test jvur=5571) 176 mg/dL 70-110 TESTED AT [address] [address] POCT-GLUCOSE [id number] 12:49:00* Test Item Value Reference Range Comments POC-GLUCOSE METER (BEAKER) (test xytm=5835) 105 mg/dL 70-110 TESTED AT [address] [address] URINE [id number] 10:07:00* Test Item Value Reference Range Comments CULTURE (BEAKER) (test dqsg=1056) See comment 20-29,000 col/mL enteric organisms of >2 types. No further workup performed. Multiple organisms suggestive of colonization or contamination. Repeat collection recommended.CYCLOSPORINE [id number] 09:39:00* Test Item Value Reference Range Comments CYCLOSPORINE BLOOD (BEAKER) (test nkas=245) 83 ng/mL <400 HEMOGLOBIN [id number] 08:31:00* Test Item Value Reference Range Comments HEMOGLOBIN A1C (BEAKER) (test egvg=240) 6.8 % 4.3-6.1 POCT-GLUCOSE [id number] 07:40:00* Test Item Value Reference Range Comments POC-GLUCOSE METER (BEAKER) (test mfbp=8859) 89 mg/dL 70-110 TESTED AT [facility] [address] [facility] [address] BASIC METABOLIC [id number] 07:04:00* Test Item Value Reference Range Comments SODIUM (BEAKER) (test xzuh=613) 134 meq/L 136-145 POTASSIUM (BEAKER) (test reqh=493) 4.3 meq/L 3.5-5.1 CHLORIDE (BEAKER) (test ifsp=628) 97 meq/L 98-107 CO2 (BEAKER) (test kjtg=041) 28 meq/L 22-29 BLOOD UREA NITROGEN (BEAKER) (test mlvo=460) 65 mg/dL 7-21 CREATININE (BEAKER) (test vswk=581) 3.39 mg/dL 0.57-1.25 GLUCOSE RANDOM (BEAKER) (test iemz=012) 140 mg/dL 70-105 CALCIUM (BEAKER) (test oewv=997) 9.0 mg/dL 8.4-10.2 EGFR (BEAKER) (test aixx=0241) 18 mL/min/1.73 sq m ESTIMATED GFR IS NOT ACCURATE CREATININE CLEARANCE IN PREDICTING GLOMERULAR FILTRATION RATE. ESTIMATED GFR IS NOT APPLICABLE FOR DIALYSIS PATIENTS. [id number] 07:00:00* Test Item Value Reference Range Comments MAGNESIUM (BEAKER) (test ifal=500) 2.0 mg/dL 1.6-2.6 CBC W/PLT COUNT & AUTO [id number] 06:30:00* Test Item Value Reference Range Comments WHITE BLOOD CELL COUNT (BEAKER) (test udle=323) 10.5 K/ L 3.5-10.5 RED BLOOD CELL COUNT (BEAKER) (test kkur=554) 4.44 M/ L 4.63-6.08 HEMOGLOBIN (BEAKER) (test qupk=549) 13.4 GM/DL 13.7-17.5 HEMATOCRIT (BEAKER) (test mqzi=963) 42.1 % 40.1-51.0 MEAN CORPUSCULAR VOLUME (BEAKER) (test sbcn=039) 94.8 fL 79.0-92.2 MEAN CORPUSCULAR HEMOGLOBIN (BEAKER) (test hsol=223) 30.2 pg 25.7-32.2 MEAN CORPUSCULAR HEMOGLOBIN CONC (BEAKER) (test lqcg=507) 31.8 GM/DL 32.3-36.5 RED CELL DISTRIBUTION WIDTH (BEAKER) (test otiz=755) 14.8 % 11.6-14.4 PLATELET COUNT (BEAKER) (test eaca=400) 142 K/CU MM 150-450 MEAN PLATELET VOLUME (BEAKER) (test zvwp=217) 11.3 fL 9.4-12.4 NUCLEATED RED BLOOD CELLS (BEAKER) (test vstt=988) 0 /100 WBC 0-0 NEUTROPHILS RELATIVE PERCENT (BEAKER) (test nmbc=565) 79 % LYMPHOCYTES RELATIVE PERCENT (BEAKER) (test mcnw=227) 14 % MONOCYTES RELATIVE PERCENT (BEAKER) (test caka=053) 5 % EOSINOPHILS RELATIVE PERCENT (BEAKER) (test vnpl=945) 1 % BASOPHILS RELATIVE PERCENT (BEAKER) (test buoq=695) 0 % NEUTROPHILS ABSOLUTE COUNT (BEAKER) (test ewvw=914) 8.27 K/ L 1.78-5.38 LYMPHOCYTES ABSOLUTE COUNT (BEAKER) (test oudk=979) 1.51 K/ L 1.32-3.57 MONOCYTES ABSOLUTE COUNT (BEAKER) (test wxcm=231) 0.56 K/ L 0.30-0.82 EOSINOPHILS ABSOLUTE COUNT (BEAKER) (test rlfz=479) 0.08 K/ L 0.04-0.54 BASOPHILS ABSOLUTE COUNT (BEAKER) (test nhmb=254) 0.03 K/ L 0.01-0.08 IMMATURE GRANULOCYTES-RELATIVE PERCENT (BEAKER) (test icec=1253) 1 % 0-1 U/S, TESTICULAR (SCROTUM)2018-01-25 05:13:00Reason for exam:->GENERALIZED BODY ACHESReason for exam:->scrotal cellulitisFINAL REPORT Exam: Testicular ultrasound. Clinical History: Scrotal cellulitis. Technique: Testicular ultrasound was performed. Color and spectral Doppler ultrasound was also performed. Comparison is made to prior study dated 01/01/2017. Findings: There is diffuse bilateral scrotal wall thickening and hyperemia. There is no fluid collection to suggest an abscess. RIGHT:The right testicle is normal in size and [...] tail. There is no varicocele or hydrocele. LEFT:The left testicle is normal in size and [...] evaluation of the left testicle demonstrates normal vascula r flow. There is mild hyperemia within the epididymal body. There is no varicoce le or hydrocele. Impression: Diffuse scrotal cellulitis. No abscess.Mild bilater al epididymitis. Bilateral subcentimeter epididymal head cysts or spermatoceles. No orchitis or evidence of testicular torsion. Signed: Amie Bustosepor t Verified Date/Time: 01/25/2018 05:13:46 Reading Location: [facility] B1 [id number] [facility] Reading Room Electronically signed by: AMIE BUSTOS MD on 05:13 AM POCT-GLUCOSE [id number] 21:18:00* Test Item Value Reference Range Comments POC-GLUCOSE METER (BEAKER) (test kfbp=6948) 182 mg/dL 70-110 TESTED AT [facility] [address] [facility] [address] LACTIC ACID, VENOUS, WHOLE [id number] 16:53:00* Test Item Value Reference Range Comments LACTATE BLOOD VENOUS (2) (BEAKER) (test jven=4380) 0.9 mmol/L 0.5-2.2 Specimen slightly hemolyzed Effective 09/15/2015: Units/Reference Range ChangeNew: 0.5-2.2 mmol/L Previous: 5 -20 mg/dLPOCT-GLUCOSE [id number] 16:28:00* Test Item Value Reference Range Comments POC-GLUCOSE METER (BEAKER) (test zedd=5798) 133 mg/dL 70-110 TESTED AT [address] [address] URINALYSIS W/ [id number] 15:44:00* Test Item Value Reference Range Comments COLOR (BEAKER) (test fhcw=084) Yellow CLARITY (BEAKER) (test nuug=496) Clear SPECIFIC GRAVITY UA (BEAKER) (test squn=265) 1.007 1.001-1.035 PH UA (BEAKER) (test rwyk=948) 6.5 5.0-8.0 PROTEIN UA (BEAKER) (test jvdw=551) 70 mg/dL Negative GLUCOSE UA (BEAKER) (test ftag=312) Negative Negative KETONES UA (BEAKER) (test bejb=411) Negative Negative BILIRUBIN UA (BEAKER) (test qkil=834) Negative Negative BLOOD UA (BEAKER) (test urdy=759) Small Negative NITRITE UA (BEAKER) (test esxk=333) Negative Negative LEUKOCYTE ESTERASE UA (BEAKER) (test wvoh=518) Negative Negative UROBILINOGEN UA (BEAKER) (test eozj=367) 0.2 mg/dL 0.2-1.0 RBC UA (BEAKER) (test jnlp=009) 3 /HPF WBC UA (BEAKER) (test vbob=062) 1 /HPF SQUAMOUS EPITHELIAL (BEAKER) (test nrpt=013) < /HPF SOURCE(BEAKER) (test sxkx=9639) Urine, Voided POCT-LACTIC ACID, [id number] 13:53:00* Test Item Value Reference Range Comments POC-LACTIC ACID, VENOUS (BEAKER) (test xfzy=2764) 1.8 mmol/L 0.9-1.7 TESTED AT [address] [address] BASIC METABOLIC [id number] 13:45:00* Test Item Value Reference Range Comments SODIUM (BEAKER) (test rwuy=404) 135 meq/L 136-145 POTASSIUM (BEAKER) (test eusa=265) 3.7 meq/L 3.5-5.1 CHLORIDE (BEAKER) (test zvap=490) 96 meq/L 98-107 CO2 (BEAKER) (test jjni=181) 26 meq/L 22-29 BLOOD UREA NITROGEN (BEAKER) (test awxg=787) 61 mg/dL 7-21 CREATININE (BEAKER) (test tylw=840) 2.56 mg/dL 0.57-1.25 GLUCOSE RANDOM (BEAKER) (test zlli=748) 135 mg/dL 70-105 CALCIUM (BEAKER) (test pxrf=895) 9.9 mg/dL 8.4-10.2 EGFR (BEAKER) (test dzhy=7913) 25 mL/min/1.73 sq m ESTIMATED GFR IS NOT ACCURATE CREATININE CLEARANCE IN PREDICTING GLOMERULAR FILTRATION RATE. ESTIMATED GFR IS NOT APPLICABLE FOR DIALYSIS PATIENTS. Specimen slightly ictericCBC W/PLT COUNT & AUTO [id number] 13:26:00 * Test Item Value Reference Range Comments WHITE BLOOD CELL COUNT (BEAKER) (test txpw=997) 9.6 K/ L 3.5-10.5 RED BLOOD CELL COUNT (BEAKER) (test chsc=025) 4.95 M/ L 4.63-6.08 HEMOGLOBIN (BEAKER) (test vgkg=470) 15.1 GM/DL 13.7-17.5 HEMATOCRIT (BEAKER) (test fqgr=289) 46.2 % 40.1-51.0 MEAN CORPUSCULAR VOLUME (BEAKER) (test gufx=701) 93.3 fL 79.0-92.2 MEAN CORPUSCULAR HEMOGLOBIN (BEAKER) (test fhbd=399) 30.5 pg 25.7-32.2 MEAN CORPUSCULAR HEMOGLOBIN CONC (BEAKER) (test xsgi=142) 32.7 GM/DL 32.3-36.5 RED CELL DISTRIBUTION WIDTH (BEAKER) (test tsdx=246) 14.4 % 11.6-14.4 PLATELET COUNT (BEAKER) (test nmuh=782) 161 K/CU MM 150-450 MEAN PLATELET VOLUME (BEAKER) (test eaqs=831) 10.2 fL 9.4-12.4 NUCLEATED RED BLOOD CELLS (BEAKER) (test wahd=137) 0 /100 WBC 0-0 NEUTROPHILS RELATIVE PERCENT (BEAKER) (test scuf=001) 77 % LYMPHOCYTES RELATIVE PERCENT (BEAKER) (test tlyo=917) 17 % MONOCYTES RELATIVE PERCENT (BEAKER) (test miet=919) 4 % EOSINOPHILS RELATIVE PERCENT (BEAKER) (test ddzg=598) 1 % BASOPHILS RELATIVE PERCENT (BEAKER) (test walh=878) 0 % NEUTROPHILS ABSOLUTE COUNT (BEAKER) (test jekn=983) 7.34 K/ L 1.78-5.38 LYMPHOCYTES ABSOLUTE COUNT (BEAKER) (test umsa=626) 1.66 K/ L 1.32-3.57 MONOCYTES ABSOLUTE COUNT (BEAKER) (test rmxl=970) 0.42 K/ L 0.30-0.82 EOSINOPHILS ABSOLUTE COUNT (BEAKER) (test wuhm=463) 0.08 K/ L 0.04-0.54 BASOPHILS ABSOLUTE COUNT (BEAKER) (test ohok=447) 0.03 K/ L 0.01-0.08 IMMATURE GRANULOCYTES-RELATIVE PERCENT (BEAKER) (test fcsh=5315) 1 % 0-1 URINALYSIS W/ [id number] 20:09:00* Test Item Value Reference Range Comments COLOR (BEAKER) (test koxx=377) Yellow CLARITY (BEAKER) (test kuug=245) Clear SPECIFIC GRAVITY UA (BEAKER) (test enwa=571) 1.007 1.001-1.035 PH UA (BEAKER) (test nawd=607) 5.5 5.0-8.0 PROTEIN UA (BEAKER) (test uzgm=233) 20 mg/dL Negative GLUCOSE UA (BEAKER) (test bges=266) Negative Negative KETONES UA (BEAKER) (test jvlp=999) Negative Negative BILIRUBIN UA (BEAKER) (test dkqe=250) Negative Negative BLOOD UA (BEAKER) (test ehdl=304) Moderate Negative NITRITE UA (BEAKER) (test lepy=396) Negative Negative LEUKOCYTE ESTERASE UA (BEAKER) (test yxnt=864) Negative Negative UROBILINOGEN UA (BEAKER) (test ajdi=019) 0.2 mg/dL 0.2-1.0 RBC UA (BEAKER) (test makd=033) 3 /HPF WBC UA (BEAKER) (test iddm=859) < /HPF MUCUS (BEAKER) (test gmkr=7767) Rare SOURCE(BEAKER) (test mjml=4534) [id number] 18:28:00* Test Item Value Reference Range Comments LIPASE (BEAKER) (test nopq=916) 80 U/L 8-78 [id number] 18:28:00* Test Item Value Reference Range Comments AMYLASE (BEAKER) (test zbxg=709) 72 U/L 25-125 HEPATIC FUNCTION [id number] 18:28:00* Test Item Value Reference Range Comments TOTAL PROTEIN (BEAKER) (test hbxg=768) 7.3 gm/dL 6.0-8.3 ALBUMIN (BEAKER) (test wyqc=4913) 3.4 g/dL 3.5-5.0 BILIRUBIN TOTAL (BEAKER) (test veyh=397) 1.0 mg/dL 0.2-1.2 BILIRUBIN DIRECT (BEAKER) (test xrov=004) 0.5 mg/dL 0.1-0.5 ALKALINE PHOSPHATASE (BEAKER) (test jhoe=318) 94 U/L 40-150 AST (SGOT) (BEAKER) (test aism=302) 33 U/L 5-34 ALT (SGPT) (BEAKER) (test xdpy=689) 33 U/L 6-55 BASIC METABOLIC [id number] 18:28:00* Test Item Value Reference Range Comments SODIUM (BEAKER) (test zqqd=148) 140 meq/L 136-145 POTASSIUM (BEAKER) (test jcjc=825) 3.1 meq/L 3.5-5.1 CHLORIDE (BEAKER) (test aulr=494) 103 meq/L 98-107 CO2 (BEAKER) (test hkqy=420) 27 meq/L 22-29 BLOOD UREA NITROGEN (BEAKER) (test fqhh=892) 60 mg/dL 7-21 CREATININE (BEAKER) (test egat=882) 2.34 mg/dL 0.57-1.25 GLUCOSE RANDOM (BEAKER) (test hqvj=506) 131 mg/dL 70-105 CALCIUM (BEAKER) (test lccg=605) 9.4 mg/dL 8.4-10.2 EGFR (BEAKER) (test ntlg=5518) 28 mL/min/1.73 sq m ESTIMATED GFR IS NOT ACCURATE CREATININE CLEARANCE IN PREDICTING GLOMERULAR FILTRATION RATE. ESTIMATED GFR IS NOT APPLICABLE FOR DIALYSIS PATIENTS. CBC W/PLT COUNT & AUTO [id number] 18:13:00* Test Item Value Reference Range Comments WHITE BLOOD CELL COUNT (BEAKER) (test levy=197) 5.5 K/ L 3.5-10.5 RED BLOOD CELL COUNT (BEAKER) (test hwtb=935) 5.21 M/ L 4.63-6.08 HEMOGLOBIN (BEAKER) (test tokw=228) 15.7 GM/DL 13.7-17.5 HEMATOCRIT (BEAKER) (test xflo=825) 48.1 % 40.1-51.0 MEAN CORPUSCULAR VOLUME (BEAKER) (test bzaj=822) 92.3 fL 79.0-92.2 MEAN CORPUSCULAR HEMOGLOBIN (BEAKER) (test rwkx=062) 30.1 pg 25.7-32.2 MEAN CORPUSCULAR HEMOGLOBIN CONC (BEAKER) (test pxkr=316) 32.6 GM/DL 32.3-36.5 RED CELL DISTRIBUTION WIDTH (BEAKER) (test wybv=117) 14.6 % 11.6-14.4 PLATELET COUNT (BEAKER) (test tagl=410) 143 K/CU MM 150-450 MEAN PLATELET VOLUME (BEAKER) (test xqrl=884) 9.9 fL 9.4-12.4 NUCLEATED RED BLOOD CELLS (BEAKER) (test xfew=934) 0 /100 WBC 0-0 NEUTROPHILS RELATIVE PERCENT (BEAKER) (test cdlo=979) 80 % LYMPHOCYTES RELATIVE PERCENT (BEAKER) (test dodb=193) 10 % MONOCYTES RELATIVE PERCENT (BEAKER) (test ldfp=766) 7 % EOSINOPHILS RELATIVE PERCENT (BEAKER) (test wirr=976) 1 % BASOPHILS RELATIVE PERCENT (BEAKER) (test ccrp=216) 0 % NEUTROPHILS ABSOLUTE COUNT (BEAKER) (test vvjw=308) 4.40 K/ L 1.78-5.38 LYMPHOCYTES ABSOLUTE COUNT (BEAKER) (test qfup=783) 0.57 K/ L 1.32-3.57 MONOCYTES ABSOLUTE COUNT (BEAKER) (test okfn=515) 0.38 K/ L 0.30-0.82 EOSINOPHILS ABSOLUTE COUNT (BEAKER) (test jnzk=243) 0.07 K/ L 0.04-0.54 BASOPHILS ABSOLUTE COUNT (BEAKER) (test xcyi=070) 0.02 K/ L 0.01-0.08 IMMATURE GRANULOCYTES-RELATIVE PERCENT (BEAKER) (test pjho=9934) 1 % 0-1 HEMOGLOBIN [id number] 22:40:00* Test Item Value Reference Range Comments HEMOGLOBIN A1C (BEAKER) (test gdme=540) 6.2 % 4.3-6.1 B-TYPE NATRIURETIC FACTOR (BNP)2017-01-18 16:59:00* Test Item Value Reference Range Comments B-TYPE NATRIURETIC PEPTIDE (BEAKER) (test pfsg=316) 140 pg/mL 0-100 BASIC METABOLIC [id number] 16:52:00* Test Item Value Reference Range Comments SODIUM (BEAKER) (test aipo=997) 137 meq/L 136-145 POTASSIUM (BEAKER) (test fmil=266) 3.9 meq/L 3.5-5.1 CHLORIDE (BEAKER) (test hrgl=380) 100 meq/L 98-107 CO2 (BEAKER) (test xiek=073) 27 meq/L 22-29 BLOOD UREA NITROGEN (BEAKER) (test ycbi=410) 62 mg/dL 7-21 CREATININE (BEAKER) (test ijur=030) 3.49 mg/dL 0.57-1.25 GLUCOSE RANDOM (BEAKER) (test oztf=690) 145 mg/dL 70-105 CALCIUM (BEAKER) (test tcoy=697) 9.8 mg/dL 8.4-10.2 EGFR (BEAKER) (test nbro=5506) 18 mL/min/1.73 sq m ESTIMATED GFR IS NOT ACCURATE CREATININE CLEARANCE IN PREDICTING GLOMERULAR FILTRATION RATE. ESTIMATED GFR IS NOT APPLICABLE FOR DIALYSIS PATIENTS. [id number] 16:51:00* Test Item Value Reference Range Comments MAGNESIUM (BEAKER) (test nijh=721) 2.1 mg/dL 1.6-2.6 BLOOD [id number] 18:00:00* Test Item Value Reference Range Comments CULTURE (BEAKER) (test gttd=8967) No growth in 5 days BLOOD [id number] 18:00:00* Test Item Value Reference Range Comments CULTURE (BEAKER) (test xxbi=7743) No growth in 5 days BLOOD [id number] 07:46:00* Test Item Value Reference Range Comments CULTURE (BEAKER) (test qcxj=0373) From Aerobic Bottle Only Same organism has been isolated from cultures(s) of the same body site and collection date. Repeat identification and susceptibility testing performed only after consultation with the clinical microbiology laboratory.Refer to previous culture ofBeta-hemolytic streptococcus group BIdentified by serological grouping. GRAM STAIN RESULT (BEAKER) (test bmhg=9656) From aerobic bottle only: gram positive cocci in chains POCT-GLUCOSE [id number] 12:40:00* Test Item Value Reference Range Comments POC-GLUCOSE METER (BEAKER) (test anok=9936) 154 mg/dL 70-110 TESTED AT [facility] [address] [facility] [address] CYCLOSPORINE [id number] 10:32:00* Test Item Value Reference Range Comments CYCLOSPORINE BLOOD (BEAKER) (test ysfe=656) 203 ng/mL <400 Trough level dailyPOCT-GLUCOSE [id number] 08:28:00* Test Item Value Reference Range Comments POC-GLUCOSE METER (BEAKER) (test aabn=3905) 78 mg/dL 70-110 TESTED AT [facility] [address] [facility] [address] BASIC METABOLIC [id number] 07:45:00* Test Item Value Reference Range Comments SODIUM (BEAKER) (test uitd=268) 139 meq/L 136-145 POTASSIUM (BEAKER) (test wgid=918) 3.6 meq/L 3.5-5.1 CHLORIDE (BEAKER) (test kntl=383) 101 meq/L 98-107 CO2 (BEAKER) (test kpey=366) 28 meq/L 22-29 BLOOD UREA NITROGEN (BEAKER) (test skvo=715) 57 mg/dL 7-21 CREATININE (BEAKER) (test zkml=081) 2.46 mg/dL 0.57-1.25 GLUCOSE RANDOM (BEAKER) (test tfsb=184) 97 mg/dL 70-105 CALCIUM (BEAKER) (test jcmx=752) 9.3 mg/dL 8.4-10.2 EGFR (BEAKER) (test qtic=6798) 26 mL/min/1.73 sq m ESTIMATED GFR IS NOT ACCURATE CREATININE CLEARANCE IN PREDICTING GLOMERULAR FILTRATION RATE. ESTIMATED GFR IS NOT APPLICABLE FOR DIALYSIS PATIENTS. CBC W/PLT COUNT & AUTO [id number] 07:19:00* Test Item Value Reference Range Comments WHITE BLOOD CELL COUNT (BEAKER) (test qekf=832) 6.3 K/ L 3.5-10.5 RED BLOOD CELL COUNT (BEAKER) (test dtrr=180) 4.60 M/ L 4.63-6.08 HEMOGLOBIN (BEAKER) (test qsdl=284) 14.0 GM/DL 13.7-17.5 HEMATOCRIT (BEAKER) (test gywt=610) 42.3 % 40.1-51.0 MEAN CORPUSCULAR VOLUME (BEAKER) (test yclq=454) 92.0 fL 79.0-92.2 MEAN CORPUSCULAR HEMOGLOBIN (BEAKER) (test dfoj=756) 30.4 pg 25.7-32.2 MEAN CORPUSCULAR HEMOGLOBIN CONC (BEAKER) (test wvqo=700) 33.1 GM/DL 32.3-36.5 RED CELL DISTRIBUTION WIDTH (BEAKER) (test kppa=655) 14.3 % 11.6-14.4 PLATELET COUNT (BEAKER) (test btis=256) 173 K/CU MM 150-450 MEAN PLATELET VOLUME (BEAKER) (test zahy=562) 11.2 fL 9.4-12.4 NUCLEATED RED BLOOD CELLS (BEAKER) (test ljeh=991) 0 /100 WBC 0-0 NEUTROPHILS RELATIVE PERCENT (BEAKER) (test sjaf=277) 53 % LYMPHOCYTES RELATIVE PERCENT (BEAKER) (test flap=246) 33 % MONOCYTES RELATIVE PERCENT (BEAKER) (test hxal=384) 10 % EOSINOPHILS RELATIVE PERCENT (BEAKER) (test hkdq=143) 3 % BASOPHILS RELATIVE PERCENT (BEAKER) (test qgcg=956) 1 % NEUTROPHILS ABSOLUTE COUNT (BEAKER) (test dicy=264) 3.31 K/ L 1.78-5.38 LYMPHOCYTES ABSOLUTE COUNT (BEAKER) (test yipv=932) 2.10 K/ L 1.32-3.57 MONOCYTES ABSOLUTE COUNT (BEAKER) (test eelg=865) 0.64 K/ L 0.30-0.82 EOSINOPHILS ABSOLUTE COUNT (BEAKER) (test dxun=087) 0.19 K/ L 0.04-0.54 BASOPHILS ABSOLUTE COUNT (BEAKER) (test liuq=151) 0.03 K/ L 0.01-0.08 IMMATURE GRANULOCYTES-RELATIVE PERCENT (BEAKER) (test owfv=8722) 0 % 0-1 POCT-GLUCOSE [id number] 01:44:00* Test Item Value Reference Range Comments POC-GLUCOSE METER (BEAKER) (test vjts=0154) 103 mg/dL 70-110 TESTED AT [address] [address] POCT-GLUCOSE [id number] 16:10:00* Test Item Value Reference Range Comments POC-GLUCOSE METER (BEAKER) (test nktd=0373) 160 mg/dL 70-110 TESTED AT [address] [address] POCT-GLUCOSE [id number] 11:49:00* Test Item Value Reference Range Comments POC-GLUCOSE METER (BEAKER) (test axfr=0584) 174 mg/dL 70-110 TESTED AT [address] [address] CYCLOSPORINE [id number] 09:29:00* Test Item Value Reference Range Comments CYCLOSPORINE BLOOD (BEAKER) (test rjlz=823) 94 ng/mL <400 Trough level dailyPOCT-GLUCOSE [id number] 08:47:00* Test Item Value Reference Range Comments POC-GLUCOSE METER (BEAKER) (test vfvf=4455) 79 mg/dL 70-110 TESTED AT [address] [address] BASIC METABOLIC [id number] 07:59:00* Test Item Value Reference Range Comments SODIUM (BEAKER) (test hexy=322) 141 meq/L 136-145 POTASSIUM (BEAKER) (test lzok=957) 3.8 meq/L 3.5-5.1 CHLORIDE (BEAKER) (test foji=061) 103 meq/L 98-107 CO2 (BEAKER) (test dojm=430) 29 meq/L 22-29 BLOOD UREA NITROGEN (BEAKER) (test cqsf=271) 57 mg/dL 7-21 CREATININE (BEAKER) (test kbuv=197) 2.63 mg/dL 0.57-1.25 GLUCOSE RANDOM (BEAKER) (test mday=739) 87 mg/dL 70-105 CALCIUM (BEAKER) (test ptrc=160) 9.3 mg/dL 8.4-10.2 EGFR (BEAKER) (test vubf=1274) 24 mL/min/1.73 sq m ESTIMATED GFR IS NOT ACCURATE CREATININE CLEARANCE IN PREDICTING GLOMERULAR FILTRATION RATE. ESTIMATED GFR IS NOT APPLICABLE FOR DIALYSIS PATIENTS. [id number] 07:51:00* Test Item Value Reference Range Comments MAGNESIUM (BEAKER) (test qhff=740) 2.1 mg/dL 1.6-2.6 CBC W/PLT COUNT & AUTO [id number] 07:25:00* Test Item Value Reference Range Comments WHITE BLOOD CELL COUNT (BEAKER) (test jryj=320) 7.1 K/ L 3.5-10.5 RED BLOOD CELL COUNT (BEAKER) (test ifqm=445) 4.59 M/ L 4.63-6.08 HEMOGLOBIN (BEAKER) (test tklc=502) 13.8 GM/DL 13.7-17.5 HEMATOCRIT (BEAKER) (test svyc=322) 42.9 % 40.1-51.0 MEAN CORPUSCULAR VOLUME (BEAKER) (test pxib=578) 93.5 fL 79.0-92.2 MEAN CORPUSCULAR HEMOGLOBIN (BEAKER) (test dkfo=793) 30.1 pg 25.7-32.2 MEAN CORPUSCULAR HEMOGLOBIN CONC (BEAKER) (test rwac=950) 32.2 GM/DL 32.3-36.5 RED CELL DISTRIBUTION WIDTH (BEAKER) (test gsne=227) 14.5 % 11.6-14.4 PLATELET COUNT (BEAKER) (test vbas=385) 166 K/CU MM 150-450 MEAN PLATELET VOLUME (BEAKER) (test zuym=067) 11.5 fL 9.4-12.4 NUCLEATED RED BLOOD CELLS (BEAKER) (test gcsn=528) 0 /100 WBC 0-0 NEUTROPHILS RELATIVE PERCENT (BEAKER) (test ezsx=905) 57 % LYMPHOCYTES RELATIVE PERCENT (BEAKER) (test vgju=185) 31 % MONOCYTES RELATIVE PERCENT (BEAKER) (test banv=271) 9 % EOSINOPHILS RELATIVE PERCENT (BEAKER) (test vxcv=494) 2 % BASOPHILS RELATIVE PERCENT (BEAKER) (test ecug=920) 0 % NEUTROPHILS ABSOLUTE COUNT (BEAKER) (test zayd=819) 4.04 K/ L 1.78-5.38 LYMPHOCYTES ABSOLUTE COUNT (BEAKER) (test chmv=497) 2.16 K/ L 1.32-3.57 MONOCYTES ABSOLUTE COUNT (BEAKER) (test vkwp=538) 0.65 K/ L 0.30-0.82 EOSINOPHILS ABSOLUTE COUNT (BEAKER) (test jhpi=855) 0.16 K/ L 0.04-0.54 BASOPHILS ABSOLUTE COUNT (BEAKER) (test yfcd=837) 0.02 K/ L 0.01-0.08 IMMATURE GRANULOCYTES-RELATIVE PERCENT (BEAKER) (test ayyj=3880) 0 % 0-1 POCT-GLUCOSE [id number] 22:28:00* Test Item Value Reference Range Comments POC-GLUCOSE METER ([facility]) (test utpc=4685) 120 mg/dL 70-110 TESTED AT [address] [address] POCT-GLUCOSE [id number] 16:12:00* Test Item Value Reference Range Comments POC-GLUCOSE METER ([facility]) (test nzok=7394) 208 mg/dL 70-110 TESTED AT [address] [address] POCT-GLUCOSE [id number] 12:08:00* Test Item Value Reference Range Comments POC-GLUCOSE METER ([facility]) (test frgr=7595) 130 mg/dL 70-110 TESTED AT [address] [address] MISCELLANEOUS LAB [id number] 11:13:00* Test Item Value Reference Range Comments SCAN RESULT (test uldl=[id number]) Result comments: GROUP B STREPTOCOCCUS SPECIES DETECTED Streptococcus Agalactiae First line therapy: Ceftriaxone Other organisms and resistance markers not cont ained in this PCR panel cannot be excluded and follow-up of traditional culture results is required. This sample was tested at the [facility] Clinical Microbiology [facility] aboratory using the [employer] Blood Culture ID Panel. This test is FDA c leared for in vitro diagnostic use and has been verified and approved by the [facility] Clinical Microbiology laboratory for clinical use. Reference Range: Not Detec ritu CYCLOSPORINE [id number] 10:15:00* Test Item Value Reference Range Comments CYCLOSPORINE BLOOD (BEAKER) (test gfmx=677) 130 ng/mL <400 Trough level dailyBLOOD [id number] 08:38:00* Test Item Value Reference Range Comments CULTURE (BEAKER) (test twvi=5288) BETA HEMOLYTIC STREPTOCOCCUS GROUP B From Aerobic And Anaerobic Bottles Beta-hemolytic streptococcus group B, by serological grouping Clindamycin (test code=10) Susceptible 0-0.25 , Resistant <0 or >.25 Erythromycin (test code=4) Susceptible 0-0.25 , Resistant <0 or >.25 Levofloxacin (test code=22) Susceptible 0-2 , Resistant <0 or >2 Linezolid (test code=40) Susceptible >0-2 , No Interpretations Established <=0 or >2 Penicillin G (test code=3) Susceptible 0-0.12 , No Interpretations Established <0 or >. Vancomycin (test code=13) Susceptible 0-1 , No Interpretations Established <0 or >1 GRAM STAIN RESULT (BEAKER) (test kvje=0730) From aerobic and anaerobic bottles: gram positive cocci in chains GROUP B STREPTOCOCCUS SPECIES DETECTEDStreptococcus AgalactiaeFirst line therapy : CeftriaxoneOther organisms and resistance markers not contained in this PCR pa janett cannot be excluded and follow-up of traditional culture results is required. This sample was tested at the [facility] Clinical Microbiology Laboratory using the [employer] Blood Culture ID Panel. This test is FDA cleared for in vitro diagnostic use and has been verified and approved by the [facility] Clinical Microbio logy laboratory for clinical use. Reference Range: Not Detected URINE CULTURE 2017-01-03 08:07:00* Test Item Value Reference Range Comments CULTURE (globa[employer]) (test fqgq=8829) 50-59,000 col/mL skin suad POCT-GLUCOSE [id number] 07:42:00* Test Item Value Reference Range Comments POC-GLUCOSE METER (BEAKER) (test sqzc=6885) 90 mg/dL 70-110 TESTED AT [facility] [address] [facility] [address] BASIC METABOLIC [id number] 07:21:00* Test Item Value Reference Range Comments SODIUM (BEAKER) (test ilrh=229) 140 meq/L 136-145 POTASSIUM (BEAKER) (test ysbq=931) 3.8 meq/L 3.5-5.1 CHLORIDE (BEAKER) (test sfon=981) 102 meq/L 98-107 CO2 (BEAKER) (test cvqq=850) 27 meq/L 22-29 BLOOD UREA NITROGEN (BEAKER) (test zmtr=729) 58 mg/dL 7-21 CREATININE (BEAKER) (test kcmo=112) 2.79 mg/dL 0.57-1.25 GLUCOSE RANDOM (BEAKER) (test ksut=476) 107 mg/dL 70-105 CALCIUM (BEAKER) (test gghc=967) 8.8 mg/dL 8.4-10.2 EGFR (BEAKER) (test mmab=7754) 23 mL/min/1.73 sq m ESTIMATED GFR IS NOT ACCURATE CREATININE CLEARANCE IN PREDICTING GLOMERULAR FILTRATION RATE. ESTIMATED GFR IS NOT APPLICABLE FOR DIALYSIS PATIENTS. [id number] 07:17:00* Test Item Value Reference Range Comments MAGNESIUM (BEAKER) (test qfaz=277) 1.9 mg/dL 1.6-2.6 CBC W/PLT COUNT & AUTO [id number] 06:31:00* Test Item Value Reference Range Comments WHITE BLOOD CELL COUNT (BEAKER) (test inwv=400) 9.0 K/ L 3.5-10.5 RED BLOOD CELL COUNT (BEAKER) (test sqqf=009) 4.28 M/ L 4.63-6.08 HEMOGLOBIN (BEAKER) (test mnju=091) 13.1 GM/DL 13.7-17.5 HEMATOCRIT (BEAKER) (test aazn=608) 40.4 % 40.1-51.0 MEAN CORPUSCULAR VOLUME (BEAKER) (test gdow=200) 94.4 fL 79.0-92.2 MEAN CORPUSCULAR HEMOGLOBIN (BEAKER) (test wkwu=527) 30.6 pg 25.7-32.2 MEAN CORPUSCULAR HEMOGLOBIN CONC (BEAKER) (test gnlv=859) 32.4 GM/DL 32.3-36.5 RED CELL DISTRIBUTION WIDTH (BEAKER) (test sbqu=893) 14.8 % 11.6-14.4 PLATELET COUNT (BEAKER) (test wajj=488) 139 K/CU MM 150-450 MEAN PLATELET VOLUME (BEAKER) (test dtkl=140) 12.0 fL 9.4-12.4 NUCLEATED RED BLOOD CELLS (BEAKER) (test lytv=055) 0 /100 WBC 0-0 NEUTROPHILS RELATIVE PERCENT (BEAKER) (test zixj=824) 68 % LYMPHOCYTES RELATIVE PERCENT (BEAKER) (test hahn=780) 22 % MONOCYTES RELATIVE PERCENT (BEAKER) (test dxne=881) 8 % EOSINOPHILS RELATIVE PERCENT (BEAKER) (test bzky=802) 2 % BASOPHILS RELATIVE PERCENT (BEAKER) (test hpfo=084) 0 % NEUTROPHILS ABSOLUTE COUNT (BEAKER) (test nvrf=944) 6.10 K/ L 1.78-5.38 LYMPHOCYTES ABSOLUTE COUNT (BEAKER) (test gbfw=244) 1.97 K/ L 1.32-3.57 MONOCYTES ABSOLUTE COUNT (BEAKER) (test vzxk=097) 0.74 K/ L 0.30-0.82 EOSINOPHILS ABSOLUTE COUNT (BEAKER) (test ohax=475) 0.14 K/ L 0.04-0.54 BASOPHILS ABSOLUTE COUNT (BEAKER) (test jdgd=868) 0.02 K/ L 0.01-0.08 IMMATURE GRANULOCYTES-RELATIVE PERCENT (BEAKER) (test wytc=4521) 0 % 0-1 POCT-GLUCOSE [id number] 00:26:00* Test Item Value Reference Range Comments POC-GLUCOSE METER (BEAKER) (test jdos=2593) 182 mg/dL 70-110 TESTED AT [address] [address] POCT-GLUCOSE [id number] 17:07:00* Test Item Value Reference Range Comments POC-GLUCOSE METER (BEAKER) (test dpxu=5674) 219 mg/dL 70-110 TESTED AT [address] [address] POCT-GLUCOSE [id number] 08:57:00* Test Item Value Reference Range Comments POC-GLUCOSE METER (BEAKER) (test cogk=3697) 101 mg/dL 70-110 TESTED AT [address] [address] POCT-GLUCOSE [id number] 08:23:00* Test Item Value Reference Range Comments POC-GLUCOSE METER (BEAKER) (test kwcw=6903) 65 mg/dL 70-110 Notified DEBO CHRISTINE/TESTED AT [address] [address] BASIC METABOLIC [id number] 07:16:00* Test Item Value Reference Range Comments SODIUM (BEAKER) (test mflw=535) 142 meq/L 136-145 POTASSIUM (BEAKER) (test djra=189) 4.1 meq/L 3.5-5.1 CHLORIDE (BEAKER) (test amoe=865) 105 meq/L 98-107 CO2 (BEAKER) (test clir=569) 28 meq/L 22-29 BLOOD UREA NITROGEN (BEAKER) (test fwcy=416) 57 mg/dL 7-21 CREATININE (BEAKER) (test zlio=575) 3.02 mg/dL 0.57-1.25 GLUCOSE RANDOM (BEAKER) (test yoxq=576) 59 mg/dL 70-105 CALCIUM (BEAKER) (test lwcs=856) 8.9 mg/dL 8.4-10.2 EGFR (BEAKER) (test mcus=6951) 21 mL/min/1.73 sq m ESTIMATED GFR IS NOT ACCURATE CREATININE CLEARANCE IN PREDICTING GLOMERULAR FILTRATION RATE. ESTIMATED GFR IS NOT APPLICABLE FOR DIALYSIS PATIENTS. [id number] 07:16:00* Test Item Value Reference Range Comments MAGNESIUM (BEAKER) (test rszo=233) 1.8 mg/dL 1.6-2.6 CBC W/PLT COUNT & AUTO [id number] 06:51:00* Test Item Value Reference Range Comments WHITE BLOOD CELL COUNT (BEAKER) (test dsei=303) 12.6 K/ L 3.5-10.5 RED BLOOD CELL COUNT (BEAKER) (test qpak=367) 4.37 M/ L 4.63-6.08 HEMOGLOBIN (BEAKER) (test ekvh=030) 13.2 GM/DL 13.7-17.5 HEMATOCRIT (BEAKER) (test jbvx=768) 41.2 % 40.1-51.0 MEAN CORPUSCULAR VOLUME (BEAKER) (test wxnk=583) 94.3 fL 79.0-92.2 MEAN CORPUSCULAR HEMOGLOBIN (BEAKER) (test ewex=813) 30.2 pg 25.7-32.2 MEAN CORPUSCULAR HEMOGLOBIN CONC (BEAKER) (test vatf=164) 32.0 GM/DL 32.3-36.5 RED CELL DISTRIBUTION WIDTH (BEAKER) (test xhjg=599) 14.8 % 11.6-14.4 PLATELET COUNT (BEAKER) (test lxcq=087) 143 K/CU MM 150-450 MEAN PLATELET VOLUME (BEAKER) (test dxzz=968) 11.1 fL 9.4-12.4 NUCLEATED RED BLOOD CELLS (BEAKER) (test ppqv=641) 0 /100 WBC 0-0 NEUTROPHILS RELATIVE PERCENT (BEAKER) (test ebsk=543) 82 % LYMPHOCYTES RELATIVE PERCENT (BEAKER) (test xtht=725) 13 % MONOCYTES RELATIVE PERCENT (BEAKER) (test ipmz=631) 5 % EOSINOPHILS RELATIVE PERCENT (BEAKER) (test fzuz=910) 0 % BASOPHILS RELATIVE PERCENT (BEAKER) (test upmb=277) 0 % NEUTROPHILS ABSOLUTE COUNT (BEAKER) (test pqnm=209) 10.28 K/ L 1.78-5.38 LYMPHOCYTES ABSOLUTE COUNT (BEAKER) (test srtn=088) 1.57 K/ L 1.32-3.57 MONOCYTES ABSOLUTE COUNT (BEAKER) (test tvry=321) 0.59 K/ L 0.30-0.82 EOSINOPHILS ABSOLUTE COUNT (BEAKER) (test vjuc=076) 0.04 K/ L 0.04-0.54 BASOPHILS ABSOLUTE COUNT (BEAKER) (test gglu=717) 0.02 K/ L 0.01-0.08 IMMATURE GRANULOCYTES-RELATIVE PERCENT (BEAKER) (test mlqw=6763) 1 % 0-1 POCT-GLUCOSE [id number] 22:39:00* Test Item Value Reference Range Comments POC-GLUCOSE METER (BEAKER) (test kxli=5557) 129 mg/dL 70-110 TESTED AT [address] [address] POCT-GLUCOSE [id number] 17:55:00* Test Item Value Reference Range Comments POC-GLUCOSE METER (BEAKER) (test zpqq=7016) 218 mg/dL 70-110 TESTED AT [address] [address] HEPATIC FUNCTION [id number] 14:42:00* Test Item Value Reference Range Comments TOTAL PROTEIN (BEAKER) (test ubeq=680) 7.5 gm/dL 6.0-8.3 ALBUMIN (BEAKER) (test twpi=7765) 3.6 g/dL 3.5-5.0 BILIRUBIN TOTAL (BEAKER) (test vmsv=775) 1.1 mg/dL 0.2-1.2 BILIRUBIN DIRECT (BEAKER) (test jnrq=830) 0.5 mg/dL 0.1-0.5 ALKALINE PHOSPHATASE (BEAKER) (test fwzi=489) 87 U/L 40-150 AST (SGOT) (BEAKER) (test ddbm=209) 19 U/L 5-34 ALT (SGPT) (BEAKER) (test vppg=079) 17 U/L 6-55 POCT-GLUCOSE [id number] 12:36:00* Test Item Value Reference Range Comments POC-GLUCOSE METER (BEAKER) (test dkky=8716) 107 mg/dL 70-110 TESTED AT [facility] [address] [facility] [address] POCT-LACTIC ACID, [id number] 10:37:00* Test Item Value Reference Range Comments POC-LACTIC ACID, VENOUS (BEAKER) (test fhwu=9624) 0.8 mmol/L 0.9-1.7 TESTED AT [address] [address] BASIC METABOLIC [id number] 08:54:00* Test Item Value Reference Range Comments SODIUM (BEAKER) (test qrws=032) 139 meq/L 136-145 POTASSIUM (BEAKER) (test jcrk=405) 3.7 meq/L 3.5-5.1 CHLORIDE (BEAKER) (test lvyo=012) 100 meq/L 98-107 CO2 (BEAKER) (test goqo=110) 28 meq/L 22-29 BLOOD UREA NITROGEN (BEAKER) (test utcw=687) 56 mg/dL 7-21 CREATININE (BEAKER) (test purc=741) 2.55 mg/dL 0.57-1.25 GLUCOSE RANDOM (BEAKER) (test inrh=636) 70 mg/dL 70-105 CALCIUM (BEAKER) (test nxhv=353) 9.5 mg/dL 8.4-10.2 EGFR (BEAKER) (test xwwu=6745) 25 mL/min/1.73 sq m ESTIMATED GFR IS NOT ACCURATE CREATININE CLEARANCE IN PREDICTING GLOMERULAR FILTRATION RATE. ESTIMATED GFR IS NOT APPLICABLE FOR DIALYSIS PATIENTS. URINALYSIS W/ [id number] 08:54:00* Test Item Value Reference Range Comments COLOR (BEAKER) (test plfk=161) Light Yellow CLARITY (BEAKER) (test hqds=435) Clear SPECIFIC GRAVITY UA (BEAKER) (test bagq=208) 1.007 1.001-1.035 PH UA (BEAKER) (test gqkb=518) 6.0 5.0-8.0 PROTEIN UA (BEAKER) (test hdib=054) 50 mg/dL Negative GLUCOSE UA (BEAKER) (test olxh=186) Negative Negative KETONES UA (BEAKER) (test meay=945) Negative Negative BILIRUBIN UA (BEAKER) (test ghmz=418) Negative Negative BLOOD UA (BEAKER) (test pwzr=428) Small Negative NITRITE UA (BEAKER) (test ofhl=625) Negative Negative LEUKOCYTE ESTERASE UA (BEAKER) (test ovaj=440) Negative Negative UROBILINOGEN UA (BEAKER) (test ebvc=571) 0.2 mg/dL 0.2-1.0 RBC UA (BEAKER) (test iqqu=016) 5 /HPF WBC UA (BEAKER) (test lixd=955) 1 /HPF SOURCE(BEAKER) (test aeaa=7294) Urine, Clean Catch [id number] 08:50:00* Test Item Value Reference Range Comments MAGNESIUM (BEAKER) (test yrbm=744) 1.6 mg/dL 1.6-2.6 [id number] 08:50:00* Test Item Value Reference Range Comments LIPASE (BEAKER) (test smql=519) 75 U/L 8-78 CBC W/PLT COUNT & AUTO [id number] 08:33:00* Test Item Value Reference Range Comments WHITE BLOOD CELL COUNT (BEAKER) (test haso=808) 8.6 K/ L 3.5-10.5 RED BLOOD CELL COUNT (BEAKER) (test aybz=885) 5.01 M/ L 4.63-6.08 HEMOGLOBIN (BEAKER) (test tptw=061) 15.4 GM/DL 13.7-17.5 HEMATOCRIT (BEAKER) (test zoxm=105) 46.6 % 40.1-51.0 MEAN CORPUSCULAR VOLUME (BEAKER) (test hxkt=648) 93.0 fL 79.0-92.2 MEAN CORPUSCULAR HEMOGLOBIN (BEAKER) (test midh=704) 30.7 pg 25.7-32.2 MEAN CORPUSCULAR HEMOGLOBIN CONC (BEAKER) (test moxy=117) 33.0 GM/DL 32.3-36.5 RED CELL DISTRIBUTION WIDTH (BEAKER) (test itsi=794) 14.5 % 11.6-14.4 PLATELET COUNT (BEAKER) (test hnfq=077) 171 K/CU MM 150-450 MEAN PLATELET VOLUME (BEAKER) (test akkx=248) 10.3 fL 9.4-12.4 NUCLEATED RED BLOOD CELLS (BEAKER) (test lann=830) 0 /100 WBC 0-0 NEUTROPHILS RELATIVE PERCENT (BEAKER) (test tbak=883) 84 % LYMPHOCYTES RELATIVE PERCENT (BEAKER) (test rzts=951) 12 % MONOCYTES RELATIVE PERCENT (BEAKER) (test bdbr=413) 2 % EOSINOPHILS RELATIVE PERCENT (BEAKER) (test toly=417) 1 % BASOPHILS RELATIVE PERCENT (BEAKER) (test rqhx=487) 0 % NEUTROPHILS ABSOLUTE COUNT (BEAKER) (test oprs=752) 7.25 K/ L 1.78-5.38 LYMPHOCYTES ABSOLUTE COUNT (BEAKER) (test ivnn=481) 1.07 K/ L 1.32-3.57 MONOCYTES ABSOLUTE COUNT (BEAKER) (test ajun=554) 0.19 K/ L 0.30-0.82 EOSINOPHILS ABSOLUTE COUNT (BEAKER) (test jxqu=806) 0.10 K/ L 0.04-0.54 BASOPHILS ABSOLUTE COUNT (BEAKER) (test xhwj=353) 0.01 K/ L 0.01-0.08 IMMATURE GRANULOCYTES-RELATIVE PERCENT (BEAKER) (test hjnm=4654) 0 % 0-1 POCT-LACTIC ACID, [id number] 08:20:00* Test Item Value Reference Range Comments POC-LACTIC ACID, VENOUS (BEAKER) (test mhsx=3676) 2.0 mmol/L 0.9-1.7 TESTED AT [facility] [address] [facility] [id number]
--- OUTSIDE RECORDS SUMMARY | 2018-05-06 04:06 | XMS REPORT | Clinical Summary ---
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 Hx [...] insulin (HCC); Hx of kidney transplant--DDKT 200501/24/2018 [facility] Internal Medicine - Encounter 01/29/2018 after 05/05/2017 [...] (H)Comment: TESTED AT 70 - 110 mg/dL [facility] [address] [facility] [address] Specimen Blood Performing Organization Address City/State/Zipcode Phone Number [facility] [address] [place] [address] [facility] * CBC with platelet count + automated diff (01/29/2018 5:03 AM CDT) Only the most recent of 6 results within the time period is included. WBC 6.9 3.5 - 10.5 K/L [facility] RBC 4.85 4.63 - 6.08 M/L [facility] Hemoglobin 14.7 13.7 - 17.5 GM/DL [facility] Hematocrit 45.4 40.1 - 51.0 % [facility] MCV 93.6 (H) 79.0 - 92.2 fL [facility] MCH 30.3 25.7 - 32.2 pg [facility] MCHC 32.4 32.3 - 36.5 GM/DL [facility] RDW 14.3 11.6 - 14.4 % [facility] Platelets 214 150 - 450 K/CU MM [facility] MPV 11.2 9.4 - 12.4 fL [facility] nRBC 0 0 - 0 /100 WBC [facility] % Neutros 50 % [facility] % Lymphs 36 % [facility] % Monos 10 % [facility] % Eos 3 % [facility] % Baso 1 % [facility] # Neutros 3.44 1.78 - 5.38 K/L [facility] # Lymphs 2.46 1.32 - 3.57 K/L [facility] # Monos 0.69 0.30 - 0.82 K/L [facility] # Eos 0.21 0.04 - 0.54 K/L [facility] # Baso 0.04 0.01 - 0.08 K/L [facility] Immature 0 0 - 1 % [facility] Granulocytes-Relative [facility] Specimen Blood Performing Organization Address City/[facility]/Zipcode Phone Number [address] [address] [facility] * Cyclosporine level (01/29/2018 5:03 AM CDT) Only the most recent of 5 results within the time period is included. Cyclosporine Lvl 81 <400 ng/mL [facility] Specimen Blood Performing Organization Address City/State/Zipcode Phone Number [address] [address] [phone] [place] [address] * Magnesium (01/29/2018 5:03 AM CDT) Only the most recent of 5 results within the time period is included. Magnesium 2.1 1.6 - 2.6 mg/dL [facility] Specimen Blood Performing Organization Address City/[facility] Centercode Phone Number [address] [address] [phone] [place] [address] * Basic Metabolic Panel (01/29/2018 5:03 AM CDT) Only the most recent of 6 results within the time period is included. Sodium 137 136 - 145 meq/L [facility] Potassium 4.2 3.5 - 5.1 meq/L [facility] Chloride 100 98 - 107 meq/L [facility] CO2 26 22 - 29 meq/L [facility] BUN 62 (H) 7 - 21 mg/dL [facility] Creatinine 3.93 (H) 0.57 - 1.25 mg/dL [facility] Glucose 145 (H) 70 - 105 mg/dL [facility] Calcium 9.6 8.4 - 10.2 mg/dL [facility] EGFR 15Comment: ESTIMATED GFR IS mL/min/1.73 sq m [facility] NOT ACCURATE CREATININE [facility] CLEARANCE IN PREDICTING GLOMERULAR FILTRATION RATE. ESTIMATED GFR IS NOT APPLICABLE FOR DIALYSIS PATIENTS. Specimen Blood Performing Organization Address City/State/Zipcode Phone Number [facility] [address] [place] [address] [facility] * US transplant kidney (01/29/2018 12:20 AM CDT) Narrative Performed At FINAL REPORT iMapData Exam: Ultrasound transplant kidney Clinical History:sugey in [...] MD Report Verified Date/Time:01/29/2018 02:16:00 Reading Location: [facility] B1 C013Y CT Body Reading Room Procedure [...] Report Verified Date/Time: 01/29/2018 02:16:00 Reading Location: [address] Body Reading Room Performing Organization Address City/State/Zipcode Phone Number [facility] * Protein, random urine (01/28/2018 1:10 PM CDT) Protein, Urine 58 (H) 0 - 14 mg/dL [facility] Specimen Urine - Urine, Clean Catch Performing Organization Address City/State/Zipcode Phone Number [facility] [address] [place] [address] [facility] * Creatinine, random urine (01/28/2018 1:10 PM CDT) Creatinine, Ur 54.8 mg/dL [facility] Specimen Urine - Urine, Clean Catch Narrative Performed At Reference Range: No Normals [facility] Performing Organization Address [facility] Centercoil Phone Number [facility] [address] [place] [address] [facility] * Urinalysis w/Microscopic (01/26/2018 9:50 PM CDT) Only the most recent of 2 results within the time period is included. Color, UA Light Yellow [facility] Clarity, UA Clear [facility] Specific [place], UA 1.004 1.001 - 1.035 [facility] pH, UA 7.0 5.0 - 8.0 [facility] Protein, UA 30 mg/dL (A) Negative [facility] Glucose, UA Negative Negative [facility] Ketones, UA Negative Negative [facility] Bilirubin, UA Negative Negative [facility] Blood, UA Trace (A) Negative [facility] Nitrite, UA Negative Negative [facility] Leukocytes, UA Negative Negative [facility] Urobilinogen, UA 0.2 0.2 - 1.0 mg/dL [facility] RBC, UA <1 /HPF [facility] WBC, UA <1 /HPF [facility] Specimen Source [facility] Specimen Urine Performing Organization Address City/[facility] Centercode Phone Number [facility] [address] [place] [address] [facility] * Urine culture (01/25/2018 4:03 PM CDT) Only the most recent of 2 results within the time period is included. Result No growth [facility] Gram Stain Result No White blood cells seen [facility] Gram Stain Result No organisms seen [facility] Specimen Urine - Urine, Clean Catch Performing Organization Address City/State/Zipcode Phone Number [facility] [address] [place] [address] [facility] * Hemoglobin A1c (01/25/2018 5:21 AM CDT) Hemoglobin A1C 6.8 (H) 4.3 - 6.1 % [facility] Specimen Blood - Arm, Right Performing Organization Address City/[facility]/Zipcode Phone Number [facility] [address] [place] [address] [facility] * US testicular (scrotum) (01/24/2018 10:35 PM CDT) Narrative Performed At FINAL REPORT iMapData Exam: Testicular ultrasound. Clinical History: Scrotal cellulitis. [...] MD Report Verified Date/Time:01/25/2018 05:13:46 Reading Location: [address] Transitional Reading Room Procedure Note Interface, [...] Report Verified Date/Time: 01/25/2018 05:13:46 Reading Location: [address] Transitional Reading Room Performing Organization Address City/State/Zipcode Phone Number [facility] * Lactic acid, venous, whole blood (01/24/2018 4:22 PM CDT) Lactate, Venous 0.9Comment: Specimen slightly 0.5 - 2.2 mmol/L [facility] hemolyzed [facility] Specimen Blood - Arm, Right Narrative Performed At Effective 09/15/2015: Units/Reference Range Change [facility] New: 0.5-2.2 mmol/LPrevious: 5-20 mg/dL [facility] Performing Organization Address City/[facility] Centercode Phone Number [address] [address] [phone] [place] [address] * Blood culture (01/24/2018 1:49 PM CDT) Only the most recent of 2 results within the time period is included. Result No growth in 5 days [facility] Specimen Blood - Arm, Right Performing Organization Address City/[facility] Centercode Phone Number [address] [phone] [place] [address] * POC-Lactic Acid, Venous (01/24/2018 1:47 PM CDT) POC-Lactic Acid, Venous 1.8 (H)Comment: TESTED AT 0.9 - 1.7 mmol/L [facility] [address] [place] [address] Specimen Blood Performing Organization Address [facility] Centercode Phone Number [address] [address] [phone] [place] [address] after 05/05/2017 Insurance Payer Benefit Subscriber ID Type Phone Address Plan / Group [facility] xxxxxxxxx MEDICARE MGD CARE MEDICARE [facility] MEDICAID MEDICAID xxxxxxxxx [place] Advance Directives For more information, please contact: [facility] [address] [place], [place] [id number] Date Inactivated Comments Code Status Date Activated [...]
[2018-05-06] MEDS ORDERED: CLINDAMYCIN PHOS 900MG/ 50ML 50 ML IV STA (04:27)
[2018-05-06] MEDS ORDERED: MORPHINE SULFATE 2 MG/ML SYR IV PRN (04:30)
[2018-05-06 05:36] LABS: BASOPHILS % 0.3 % (0.0-1.0); EOSINOPHILS # (AUTO) 0.1 (0.0-0.4); EOSINOPHILS % 1.1 % (0.0-6.0); HEMOGLOBIN 13.2 g/dL (14.0-18.0); LYMPHOCYTES # (AUTO) 1.2 (1.0-3.2); LYMPHOCYTES % 17.3 % (18.0-39.1); MEAN CORPUSCULAR HEMOGLOBIN 30.9 pg (28-32); MEAN CORPUSCULAR VOLUME 93.7 fL (81-99); MONOCYTES # (AUTO) 0.4 (0.2-0.8); MONOCYTES % 5.4 % (4.4-11.3); NEUTROPHILS # (AUTO) 5.4 (2.1-6.9); NEUTROPHILS % 75.2 % (38.7-80.0); PLATELET COUNT 166 x10e3/uL (140-360); RED BLOOD COUNT 4.27 x10e6/uL (4.3-5.7); RED CELL DISTRIBUTION WIDTH 14.4 % (11.7-14.4)
[2018-05-06] MEDS ORDERED: MORPHINE SULFATE INJ 4 MG/ML INJ ONE (05:48)
[2018-05-06 05:52] LABS: ALBUMIN 2.9 g/dL (3.5-5.0); ALBUMIN/GLOBULIN RATIO 0.7 (0.8-2.0); ANION GAP 15.9 mmol/L (8-16); CALCIUM 10.3 mg/dL (8.4-10.2); CREATININE, SERUM 2.77 mg/dL (0.72-1.25); POTASSIUM 3.9 mmol/L (3.5-5.1)
[2018-05-06] MEDS: ONDANSETRON HCL INJ 2 MG/ML VIAL IV PRN ×2 (06:06→22:07)
--- OUTSIDE RECORDS SUMMARY | 2018-05-06 07:01 | XMS REPORT | Clinical Summary ---
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 [address] Specimen Blood Performing Organization Address City/State/Zipcode Phone Number [facility] [address] [place] [address] [facility] * CBC with platelet count + automated diff (01/29/2018 5:03 AM CDT) Only the most recent of 6 results within the time period is included. WBC 6.9 3.5 - 10.5 K/L [facility] RBC 4.85 4.63 - 6.08 M/L [facility] Hemoglobin 14.7 13.7 - 17.5 GM/DL [facility] Hematocrit 45.4 40.1 - 51.0 % [facility] MCV 93.6 (H) 79.0 - 92.2 fL [facility] MCH 30.3 25.7 - 32.2 pg [facility] MCHC 32.4 32.3 - 36.5 GM/DL [facility] RDW 14.3 11.6 - 14.4 % [facility] Platelets 214 150 - 450 K/CU MM [facility] MPV 11.2 9.4 - 12.4 fL [facility] nRBC 0 0 - 0 /100 WBC [facility] % Neutros 50 % [facility] % Lymphs 36 % [facility] % Monos 10 % [facility] % Eos 3 % [facility] % Baso 1 % [facility] # Neutros 3.44 1.78 - 5.38 K/L [facility] # Lymphs 2.46 1.32 - 3.57 K/L [facility] # Monos 0.69 0.30 - 0.82 K/L [facility] # Eos 0.21 0.04 - 0.54 K/L [facility] # Baso 0.04 0.01 - 0.08 K/L [facility] Immature 0 0 - 1 % [facility] Granulocytes-Relative [facility] Specimen Blood Performing Organization Address City/[facility]/Zipcode Phone Number [address] [address] [facility] * Cyclosporine level (01/29/2018 5:03 AM CDT) Only the most recent of 5 results within the time period is included. Cyclosporine Lvl 81 <400 ng/mL [facility] Specimen Blood Performing Organization Address City/State/Zipcode Phone Number [address] [address] [phone] [place] [address] * Magnesium (01/29/2018 5:03 AM CDT) Only the most recent of 5 results within the time period is included. Magnesium 2.1 1.6 - 2.6 mg/dL [facility] Specimen Blood Performing Organization Address City/[facility] Hospitalcode Phone Number [address] [address] [phone] [place] [address] * Basic Metabolic Panel (01/29/2018 5:03 AM CDT) Only the most recent of 6 results within the time period is included. Sodium 137 136 - 145 meq/L [facility] Potassium 4.2 3.5 - 5.1 meq/L [facility] Chloride 100 98 - 107 meq/L [facility] CO2 26 22 - 29 meq/L [facility] BUN 62 (H) 7 - 21 mg/dL [facility] Creatinine 3.93 (H) 0.57 - 1.25 mg/dL [facility] Glucose 145 (H) 70 - 105 mg/dL [facility] Calcium 9.6 8.4 - 10.2 mg/dL [facility] EGFR 15Comment: ESTIMATED GFR IS mL/min/1.73 sq m [facility] NOT ACCURATE CREATININE [facility] CLEARANCE IN PREDICTING GLOMERULAR FILTRATION RATE. ESTIMATED GFR IS NOT APPLICABLE FOR DIALYSIS PATIENTS. Specimen Blood Performing Organization Address City/State/Zipcode Phone Number [facility] [address] [place] [address] [facility] * US transplant kidney (01/29/2018 12:20 AM CDT) Narrative Performed At FINAL REPORT Vidavee Exam: Ultrasound transplant kidney Clinical History:sugey in [...] MD Report Verified Date/Time:01/29/2018 02:16:00 [facility] Body Reading Room [...] Report Verified Date/Time: 01/29/2018 02:16:00 Reading Location: [address] Body Reading Room Performing Organization Address City/State/Zipcode Phone Number [facility] * Protein, random urine (01/28/2018 1:10 PM CDT) Protein, Urine 58 (H) 0 - 14 mg/dL [facility] Specimen Urine - Urine, Clean Catch Performing Organization Address City/State/Zipcode Phone Number [facility] [address] [place] [address] [facility] * Creatinine, random urine (01/28/2018 1:10 PM CDT) Creatinine, Ur 54.8 mg/dL [facility] Specimen Urine - Urine, Clean Catch Narrative Performed At Reference Range: No Normals [facility] Performing Organization Address [facility] Hospitalcomo Phone Number [facility] [address] [place] [address] [facility] * Urinalysis w/Microscopic (01/26/2018 9:50 PM CDT) Only the most recent of 2 results within the time period is included. Color, UA Light Yellow [facility] Clarity, UA Clear [facility] Specific [place], UA 1.004 1.001 - 1.035 [facility] pH, UA 7.0 5.0 - 8.0 [facility] Protein, UA 30 mg/dL (A) Negative [facility] Glucose, UA Negative Negative [facility] Ketones, UA Negative Negative [facility] Bilirubin, UA Negative Negative [facility] Blood, UA Trace (A) Negative [facility] Nitrite, UA Negative Negative [facility] Leukocytes, UA Negative Negative [facility] Urobilinogen, UA 0.2 0.2 - 1.0 mg/dL [facility] RBC, UA <1 /HPF [facility] WBC, UA <1 /HPF [facility] Specimen Source [facility] Specimen Urine Performing Organization Address City/[facility] Hospitalcode Phone Number [facility] [address] [place] [address] [facility] * Urine culture (01/25/2018 4:03 PM CDT) Only the most recent of 2 results within the time period is included. Result No growth [facility] Gram Stain Result No White blood cells seen [facility] Gram Stain Result No organisms seen [facility] Specimen Urine - Urine, Clean Catch Performing Organization Address City/State/Zipcode Phone Number [facility] [address] [place] [address] [facility] * Hemoglobin A1c (01/25/2018 5:21 AM CDT) Hemoglobin A1C 6.8 (H) 4.3 - 6.1 % [facility] Specimen Blood - Arm, Right Performing Organization Address City/[facility]/Zipcode Phone Number [facility] [address] [place] [address] [facility] * US testicular (scrotum) (01/24/2018 10:35 PM CDT) Narrative Performed At FINAL REPORT Vidavee Exam: Testicular ultrasound. Clinical History: Scrotal cellulitis. [...] MD Report Verified Date/Time:01/25/2018 05:13:46 Reading Location: [address] Transitional Reading Room Procedure Note Interface, [...] Report Verified Date/Time: 01/25/2018 05:13:46 Reading Location: [address] Transitional Reading Room Performing Organization Address City/State/Zipcode Phone Number [facility] * Lactic acid, venous, whole blood (01/24/2018 4:22 PM CDT) Lactate, Venous 0.9Comment: Specimen slightly 0.5 - 2.2 mmol/L [facility] hemolyzed [facility] Specimen Blood - Arm, Right Narrative Performed At Effective 09/15/2015: Units/Reference Range Change [facility] New: 0.5-2.2 mmol/LPrevious: 5-20 mg/dL [facility] Performing Organization Address City/[facility] Hospitalcode Phone Number [address] [address] [phone] [place] [address] * Blood culture (01/24/2018 1:49 PM CDT) Only the most recent of 2 results within the time period is included. Result No growth in 5 days [facility] Specimen Blood - Arm, Right Performing Organization Address City/[facility] Hospitalcode Phone Number [address] [phone] [place] [address] * POC-Lactic Acid, Venous (01/24/2018 1:47 PM CDT) POC-Lactic Acid, Venous 1.8 (H)Comment: TESTED AT 0.9 - 1.7 mmol/L [facility] [address] [place] [address] Specimen Blood Performing Organization Address [facility] Hospitalcode Phone Number [address] [address] [phone] [place] [address] after 05/05/2017 Insurance Payer Benefit Subscriber ID Type Phone Address Plan / Group [facility] xxxxxxxxx MEDICARE MGD CARE MEDICARE [facility] MEDICAID MEDICAID xxxxxxxxx Medicaid OF [place] Advance Directives For more information, please contact: [facility] [address] [place], [place] [phone] Date Inactivated Comments Code Status Date Activated [...]
--- NOTE | 2018-05-06 07:06 | NUR ---
walking rounds with joanne ho
[2018-05-06] MEDS ORDERED: DEXTROSE 50% SYRINGE 50 ML IV PRN (08:00)
[2018-05-06 08:12] VITALS: BP 150/80
[2018-05-06 08:30] VITALS: BP 150/80
--- NOTE | 2018-05-06 08:30 | NUR ---
PATIENT RECEIVED FROM ER PER STRETCHER. ALERT AND VERBALLY RESPONSIVE; MOSTLY ANGUILLAN SPEAKING, DAUGHTER AT BED SIDE. DENIED PAIN AT THIS TIME. SKIN WARM AND DRY TO TOUCH, WITH REDNESS NOTED TO LOWER ABDOMEN, GROIN; REDNESS AND SWELLING TO TESTICLES, LOWER EXTREMITIES MOSTLY TO LEFT LEG. RESPIRATION EVEN AND UNLABORED. ABDOMEN SOFT AND NON DISTENDED, DIETARY CALLED AND BREAKFAST PROVIDED. PATIENT ORIENTED TO SURROUNDING, BED IN LOWER POSITION, CALL LIGHT AT REACH. INSTRUCTED TO CALL FOR ASSISTANCE NEEDED.
[2018-05-06] MEDS ORDERED: ACETAMINOPHEN 325 MG TAB PO PRN (11:00)
[2018-05-06] MEDS: INSULIN REGULAR, HUMAN 100 UNIT/1 ML 3ML VIAL SQ SCH ×3 (11:30→21:00)
[2018-05-06 12:00] VITALS: BP 155/63
[2018-05-06] MEDS ORDERED: MORPHINE SULFATE INJ 4 MG/ML INJ IV PRN (13:15)
--- NOTE | 2018-05-06 13:48 | NUR ---
PATIENT NOTED WITH TEMPERATURE OF 101.7. PRN TYLENOL ADMINISTERED ORDERED, TEMPERATURE RECHECKED WITH THE READING OF 99.0. WILL CONTINUE TO MONITOR.
--- NOTE | 2018-05-06 13:52 | Consultation ---
DATE OF CONSULTATION: May 06, 2018 HISTORY OF PRESENT ILLNESS: Mr. Luis M Flood is a 72-year-old gentleman with underlying history of diabetes, status post kidney transplant 9 years ago with chronic rejection maintained on cyclosporin 50 mg twice a day, also on prednisone 5 mg daily. SOCIAL HISTORY: Patient does not smoke or drink. FAMILY HISTORY: Significant for diabetes. Admitted with cellulitis, left lower extremity. She is an existing patient of Dr. Yeung. PHYSICAL EXAMINATION GENERAL: She is currently lying supine in no apparent distress. VITALS: Febrile. Temperature 101.7. Blood pressure 155/63. Pulse rate 94. Oxygen saturation 93% on room air. HEAD AND NECK: Corneas clear. Mucosa moist. Neck veins flat. LUNGS: Relatively clear. HEART: S1, S2 audible. ABDOMEN: Otherwise soft and nontender. EXTREMITIES: Left lower extremity edema with chronic skin changes and redness. Dressing noted, not removed for evaluation. No edema noted of right lower extremity. Past history also significant for hypertension and anemia chronic kidney disease. His most recent labs show potassium 3.9, bicarbonate 28, creatinine 2.77. White count 7.17, hemoglobin 13.2. IMPRESSION AND PLAN 1. Cadaveric renal transplant. 2. Qhyww-su-qwnwbly renal failure, kidney failure, chronic rejection. 3. Cellulitis, rule out deep vein thrombosis lower extremity. 4. Will resume prednisone and cyclosporin. Will confirm whether the patient is on Rapamune with a family member. They are in the process of finding out. Will resume clindamycin. He only got 1 dose. Will consult infectious disease. Order stat ultrasound Doppler left lower extremity to rule out DVT. Further recommendations to follow. Job#: [id number]
--- NOTE | 2018-05-06 14:57 | Consultation ---
DATE OF CONSULTATION: May 06, 2018 HISTORY OF PRESENT ILLNESS: This is a 72-year-old gentleman who is known to our nephrology service. He was admitted with cellulitis of the lower extremity. He has underlying history of chronic kidney disease, hypertension, type 2 diabetes with end-organ damage. Renal consult for management of kidney failure. Most recent labs show white count 7.17. Hemoglobin 13.2. Potassium 3.1. Bicarbonate 28. Creatinine 2.7. Calcium 10.3. LFTs within normal range. Total protein 7.3. Globulin 4.4. Currently laying supine complaining of pain in the lower extremity. Otherwise, denies shortness of breath, nausea or vomiting. ALLERGIES: NO APPARENT DRUG ALLERGIES. CURRENT MEDICATIONS: Patient on clindamycin and insulin. SOCIAL HISTORY: The patient does not smoke or drink. PAST MEDICAL HISTORY: As above. FAMILY HISTORY: Significant for diabetes. PHYSICAL EXAMINATION: GENERAL: Awake, alert and lying supine. No apparent distress. VITALS: Blood pressure of 155/63. Pulse is 94. He is febrile at 101.7 degrees Fahrenheit. HEAD AND NECK: Cornea clear. Oral mucosa moist. Neck veins flat. LUNGS: Relatively clear. No rales or rhonchi. HEART: S1, S2 audible. ABDOMEN: Otherwise soft and nontender. LOWER EXTREMITIES: Edema noted in the left lower extremity with dressing noted, some amount of redness. Dressing not removed. Right lower extremity no edema. IMPRESSION: Cellulitis and lower extremity edema. Must rule out DVT. Will order Doppler of bilateral lower extremities Job#: [id number]
[2018-05-06 16:00] VITALS: BP 104/55
[2018-05-06] MEDS ORDERED: SODIUM CHLORIDE 0.9% 250ML 250 ML ONE (16:12)
[2018-05-06] MEDS: CYCLOSPORINE 25 MG CAP PO SCH (17:41)
--- NOTE | 2018-05-06 17:53 | NUR ---
TEMPERATURE AT 97.7 AT THIS TIME. ASSISTED TO THE RESTROOM AND BATHROOM AND BACK TO BED. CALL LIGHT AT REACH. FAMILY MEMBER AT BED SIDE.
[2018-05-06] MEDS: CLINDAMYCIN 600MG / 50ML 50 ML IV SCH (18:37)
--- NOTE | 2018-05-06 19:00 | NUR ---
Received patient awake, family member at the bedside, no complaints of pain at this time. Call light within reached, advised to call for assistance, will continue to monitor
[2018-05-06 21:00] VITALS: BP 104/55
[2018-05-06 22:02] VITALS: BP 147/65
[2018-05-07] VITALS (9 sets, daily range): BP systolic 110–173; BP diastolic 55–75
[2018-05-07] MEDS: CLINDAMYCIN 600MG / 50ML 50 ML IV SCH ×2 (00:30→05:50)
[2018-05-07 04:05] LABS: BASOPHILS % 0.2 % (0.0-1.0); EOSINOPHILS # (AUTO) 0.1 (0.0-0.4); EOSINOPHILS % 0.8 % (0.0-6.0); HEMATOCRIT 38.3 % (38.2-49.6); HEMOGLOBIN 12.2 g/dL (14.0-18.0); LYMPHOCYTES # (AUTO) 1.9 (1.0-3.2); LYMPHOCYTES % 22.4 % (18.0-39.1); MEAN CORPUSCULAR HEMOGLOBIN 30.4 pg (28-32); MEAN CORPUSCULAR HGB CONC 31.9 g/dL (31-35); MEAN CORPUSCULAR VOLUME 95.5 fL (81-99); MONOCYTES # (AUTO) 0.7 (0.2-0.8); MONOCYTES % 8.3 % (4.4-11.3); NEUTROPHILS # (AUTO) 5.7 (2.1-6.9); NEUTROPHILS % 67.8 % (38.7-80.0); PLATELET COUNT 133 x10e3/uL (140-360); RED BLOOD COUNT 4.01 x10e6/uL (4.3-5.7); RED CELL DISTRIBUTION WIDTH 14.7 % (11.7-14.4)
[2018-05-07 04:37] LABS: ALBUMIN 2.4 g/dL (3.5-5.0); ALBUMIN/GLOBULIN RATIO 0.6 (0.8-2.0); CREATININE, SERUM 3.11 mg/dL (0.72-1.25)
--- NOTE | 2018-05-07 07:00 | NUR ---
SHIFT REPORT RECEIVED FROM NIGHT RN. PT DENIES NEEDS AT THIS TIME.
[2018-05-07] MEDS: INSULIN REGULAR, HUMAN 100 UNIT/1 ML 3ML VIAL SQ SCH ×4 (07:30→21:00)
[2018-05-07 08:18] LABS: BASOPHILS % 0.3 % (0.0-1.0); EOSINOPHILS # (AUTO) 0.1 (0.0-0.4); EOSINOPHILS % 0.6 % (0.0-6.0); HEMATOCRIT 38.6 % (38.2-49.6); HEMOGLOBIN 12.2 g/dL (14.0-18.0); LYMPHOCYTES # (AUTO) 1.7 (1.0-3.2); LYMPHOCYTES % 19.1 % (18.0-39.1); MEAN CORPUSCULAR HEMOGLOBIN 30.7 pg (28-32); MEAN CORPUSCULAR HGB CONC 31.6 g/dL (31-35); MEAN CORPUSCULAR VOLUME 97.2 fL (81-99); MONOCYTES # (AUTO) 0.8 (0.2-0.8); MONOCYTES % 8.9 % (4.4-11.3); NEUTROPHILS # (AUTO) 6.2 (2.1-6.9); NEUTROPHILS % 70.8 % (38.7-80.0); PLATELET COUNT 123 x10e3/uL (140-360); RED BLOOD COUNT 3.97 x10e6/uL (4.3-5.7); RED CELL DISTRIBUTION WIDTH 14.8 % (11.7-14.4)
[2018-05-07 08:33] LABS: ANION GAP 15.9 mmol/L (8-16); CREATININE, SERUM 3.25 mg/dL (0.72-1.25); MAGNESIUM 1.7 MG/DL (1.3-2.1); POTASSIUM 3.9 mmol/L (3.5-5.1)
[2018-05-07] MEDS: FERROUS SULFATE 325 MG TAB PO SCH (08:36)
[2018-05-07] MEDS: FOLIC ACID 1 MG TAB PO SCH (08:36)
[2018-05-07] MEDS: PANTOPRAZOLE SOD 40 MG TABEC PO SCH (08:36)
[2018-05-07] MEDS: SITAGLIPTIN 100 MG TAB PO SCH (08:36)
[2018-05-07] MEDS: METOPROLOL TARTRATE 25 MG TAB PO SCH ×2 (08:37→21:27)
[2018-05-07] MEDS: PREDNISONE 5 MG TAB PO SCH (08:37)
[2018-05-07] MEDS: SODIUM CHLORIDE 0.9% 1000ML 1,000 ML IV SCH ×2 (09:46→21:28)
[2018-05-07] MEDS ORDERED: CEFEPIME HCL 1 GM VIAL IV SCH (10:45)
--- NOTE | 2018-05-07 10:45 | Diagnostic Imaging Report ---
EXAMINATION: CHEST 2 VIEWS INDICATION: ^Fever ^[id number] ^1030 COMPARISON: None FINDINGS: PA and lateral views TUBES and LINES: None. LUNGS: Lungs are well inflated. Left lower lobe hazy opacification. PLEURA: No significant pleural effusion or pneumothorax. HEART AND MEDIASTINUM: The cardiomediastinal silhouette is unremarkable. BONES AND SOFT TISSUES: No acute osseous lesion. Soft tissues are unremarkable. UPPER ABDOMEN: No free air under the diaphragm. IMPRESSION: Left lower lobe hazy opacification, concerning for pneumonia. Signed by: Dr. Eladio Izquierdo MD on 05/07/2018 10:42 AM
--- NOTE | 2018-05-07 11:35 | History and Physical ---
PRIMARY CARE PROVIDER: Dr. Rodolfo Ho. CHIEF COMPLAINT: Fever and leg swelling. HISTORY OF PRESENT ILLNESS: The patient is a 72-year-old man. He has a history of renal failure. He is status post renal transplant 9 years ago. He is on cyclosporin and low-dose prednisone. He reports swelling in his left leg for about 6 years, although he does not remember ever having a blood clot. He came to the hospital complaining of worsening swelling and redness in the leg. He also noted some fever. He did not complain of cough or chest congestion. He had no abdominal pain. He had no nausea or vomiting. PAST SURGICAL HISTORY: Status post kidney transplant. PAST MEDICAL HISTORY 1. Hypertension. 2. Diabetes. 3. End-stage renal disease. SOCIAL HISTORY: The patient is not a smoker. He is not a drinker. FAMILY HISTORY: Noncontributory. ALLERGIES: THERE ARE NO KNOWN DRUG ALLERGIES. REVIEW OF SYSTEMS: The patient had a low-grade temperature to 100.2. He did not complain of headache or neck pain. He has no sore throat. He has no neck pain. He has no chest pain. He has no cough or dyspnea. He does not complain of abdominal pain, nausea, or vomiting. There is some leg edema in the left leg. Neurologic exam shows no focal abnormalities. LABORATORY DATA: White blood cell count is 8.8. The hemoglobin is 12.2. Platelet count is 123. The BUN to creatinine ratio is 54 to 3.25. The other electrolytes are within normal limits. IMPRESSION 1. Fever and cellulitis with sepsis, present on admission. 2. Renal transplant, requiring immunosuppression. 3. Chronic left leg swelling. 4. Diabetes. 5. Hypertension. PLAN 1. Continue current antibiotics. 2. Archibald-culture patient. 3. Infectious disease consultation. 4. Continue immunosuppressive therapy for renal transplant. Job#: [id number] YOSELYN
[2018-05-07] MEDS: CEFEPIME 1GM/NS 0.9% 50 ML 50 ML IV SCH (11:46)
[2018-05-07] MEDS: CYCLOSPORINE 25 MG CAP PO SCH ×2 (11:50→17:17)
[2018-05-07] MEDS: DAPTOMYCIN 600 MG in SODIUM CHLORIDE 0.9% 100 ML IV SCH (12:36)
--- NOTE | 2018-05-07 13:45 | Consultation ---
DATE OF CONSULTATION: May 07, 2018 INFECTIOUS DISEASE CONSULTATION REFERRING PHYSICIAN: Dr. Jimenez. REASON FOR CONSULTATION: Cellulitis. HISTORY OF PRESENT ILLNESS: A 72-year-old male patient with history of chronic kidney disease, who has been admitted with possible cellulitis of the left lower extremity. He was found to be in volume overload and has been seen by nephrology in consultation. We have been asked to give antibiotic recommendations. PAST MEDICAL HISTORY: Includes chronic kidney disease stage 3; hypertension; type 2 diabetes. ALLERGIES: NO KNOWN DRUG ALLERGIES. PERSONAL AND SOCIAL HISTORY: He does not smoke, drink, or use IV drugs. FAMILY HISTORY: There is no family history of premature coronary artery disease or stroke. REVIEW OF SYSTEMS: A 14-system review negative apart from points mentioned in the HPI. PHYSICAL EXAMINATION GENERAL: Reveals middle-aged male, awake, alert. No acute distress. VITAL SIGNS: Temperature 98.4, heart rate is 94, respirations 18, T-max is 101.7, blood pressure is 155/63. ENT: Pupils are equally reactive to light and accommodation. NECK: No JVP or lymphadenopathy. Oral cavity, no thrush or ulcers seen. CHEST: Clear to auscultation without any rhonchi or wheezes on auscultation. CARDIOVASCULAR SYSTEM: S1, S2 heard. No S3 or murmurs. ABDOMEN: Soft, nontender. Bowel sounds present. EXTREMITIES: There is diabetic foot ulceration at the tip of the left second toe. There is cellulitis, erythema, and edema of the left second and third toe and adjacent foot. CENTRAL NERVOUS SYSTEM: Alert and oriented x 3. SKIN: No rash or eczema. LABS: Include a white count of 7.17. His creatinine is 3.11. ASSESSMENT 1. Diabetic foot ulceration of the left foot. 2. Cellulitis of the left foot. 3. Rule out osteomyelitis of the left foot. 4. Type 2 diabetes, neuropathy, and nephropathy. 5. Chronic kidney disease, stage 4. RECOMMENDATIONS: Change antibiotics to daptomycin and cefepime. MRI of the left foot, sed rate. Thank you for involving us in the care of this patient. Dr. Lewisb to follow tomorrow. Job#: [id number] LPA
[2018-05-07] MEDS ORDERED: CLINDAMYCIN PHOS 900MG/ 50ML 50 ML IV SCH (14:00)
[2018-05-07 18:17] LABS: CREATININE,URINE RANDOM 139.95 mg/dL (63-166); TOTAL PROTEIN, URINE 55.8 mg/dL (1-14)
[2018-05-07 18:43] LABS: CLARITY,URINE HAZY (CLEAR); COLOR,URINE YELLOW (YELLOW); KETONES,URINE NEGATIVE (NEGATIVE); LEUKOCYTE ESTERASE ,URINE NEGATIVE (NEGATIVE); NITRITE,URINE NEGATIVE (NEGATIVE); PROTEIN,URINE DIPSTICK 2+ (NEGATIVE); URINE UROBILINOGEN 0.2 mg/dL (0.2 - 1)
[2018-05-07 18:44] LABS: BILIRUBIN,URINE NEGATIVE (NEGATIVE); EPITHELIAL CELLS,URINE FEW /LPF; TRANSITIONAL EPI CELLS,URINE MODERATE
[2018-05-07 18:45] LABS: BACTERIA,URINE FEW /HPF
--- NOTE | 2018-05-07 19:20 | NUR ---
Received patient awake, not in distress, no complaints of pain, with ongoing IV fluids. Call light within easy reach, will continue to monitor
[2018-05-07] MEDS ORDERED: SIMVASTATIN 40 MG TAB PO SCH (21:00)
[2018-05-07] MEDS: ATORVASTATIN 40 MG TAB PO SCH (21:26)
[2018-05-08] VITALS: BP 128/51
[2018-05-08 04:00] VITALS: BP 123/75
[2018-05-08 05:39] LABS: ALBUMIN 2.1 g/dL (3.5-5.0); ALBUMIN/GLOBULIN RATIO 0.6 (0.8-2.0); ANION GAP 14.6 mmol/L (8-16); CALCIUM 8.5 mg/dL (8.4-10.2); CREATININE, SERUM 3.37 mg/dL (0.72-1.25); POTASSIUM 3.6 mmol/L (3.5-5.1)
[2018-05-08] MEDS: SODIUM CHLORIDE 0.9% 1000ML 1,000 ML IV SCH (05:40)
--- NOTE | 2018-05-08 07:13 | NUR ---
pt asleep and snoring pt aroused to name , pt has family member at bedside, pt had no distress noted. pt able to make needs known call light in reach.
[2018-05-08] MEDS: INSULIN REGULAR, HUMAN 100 UNIT/1 ML 3ML VIAL SQ SCH ×4 (07:30→21:11)
[2018-05-08] MEDS: PANTOPRAZOLE SOD 40 MG TABEC PO SCH (07:30)
[2018-05-08 08:31] VITALS: BP 136/77
[2018-05-08] MEDS: SITAGLIPTIN 100 MG TAB PO SCH (09:00)
[2018-05-08] MEDS: PREDNISONE 5 MG TAB PO SCH (09:00)
[2018-05-08] MEDS: [UNRECOGNIZED DRUG - REMARK] PO SCH (09:00)
[2018-05-08] MEDS: GUAIFENESIN 600 MG TAB PO SCH ×2 (09:00→16:45)
[2018-05-08] MEDS: BUMETANIDE 1 MG TAB PO SCH ×2 (09:00→16:45)
[2018-05-08] MEDS: ALLOPURINOL 100 MG TAB PO SCH (09:00)
[2018-05-08] MEDS: FOLIC ACID 1 MG TAB PO SCH (09:00)
[2018-05-08] MEDS: FERROUS SULFATE 325 MG TAB PO SCH (09:00)
[2018-05-08] MEDS ORDERED: NON-FORMULARY MEDICATION (Metoprolol Succinate 100 MG) PO SCH (09:00)
[2018-05-08] MEDS: CHOLECALCIFEROL 1,000 UNIT TAB PEG SCH (09:00)
[2018-05-08] MEDS ORDERED: NON-FORMULARY MEDICATION (Prednisone 5 MG) PO SCH (09:00)
--- NOTE | 2018-05-08 10:12 | Progress Note ---
DATE: Mr. Flood is laying in bed comfortably. Has no complaints. PHYSICAL EXAMINATION GENERAL: He is alert and oriented. He does not seem to be in acute distress. EXTREMITIES: Continues to have swelling in his left lower extremity. IMPRESSION 1. Cellulitis of left lower extremity. 2. Status post renal transplant, on immunosuppression. 3. Lymphedema. 4. Diabetes. 5. Hypertension. 6. Chronic kidney disease. 7. Obesity. The urine is showing rbcs and wbcs, and a few bacteria, but there is no urine culture. He is currently on Lipitor, cyclosporin, daptomycin, and cefepime. PLAN: Continue the same. Will follow. Job#: [id number] NANCIE
[2018-05-08 11:53] VITALS: BP 159/84
[2018-05-08] MEDS: ALBUTEROL/IPRATROPIUM 3 ML NEB NEB SCH ×2 (13:00→20:30)
--- NOTE | 2018-05-08 13:00 | NUR ---
Explained to patient to call when he has collected urine sample. He verbalized understanding.
[2018-05-08] MEDS: CYCLOSPORINE 25 MG CAP PO SCH ×2 (13:12→18:22)
--- NOTE | 2018-05-08 13:41 | Diagnostic Imaging Report ---
MRI of the left foot without contrast. History: Osteomyelitis. Second and third toe redness and swelling. Decreased range of motion. Technique: Multiplanar multisequence MRI of the left foot without contrast Comparison: None Findings: There is diffuse soft tissue edema about the foot most pronounced dorsally likely due to cellulitis. No well-formed drainable fluid collection is seen. No cortical destruction or focal bone marrow edema is seen to suggest osteomyelitis. Scattered degenerative changes are seen. No fracture or dislocation is seen. No avascular necrosis. No ligamentous or tendon tear is seen. The visualized neurovascular bundles are intact. The visualized muscles are normal in size, signal intensity and morphology. Impression: Findings most consistent with cellulitis. No well-formed drainable fluid collection/abscess is seen. No cortical destruction or focal bone marrow edema is seen to suggest osteomyelitis. Signed by: Dr. Alan Langford M.D. on 05/08/2018 1:38 PM
--- NOTE | 2018-05-08 15:42 | NUR ---
Attempted x2 to start a new IV without success. charge entry to try.
[2018-05-08] MEDS: CEFEPIME 1GM/NS 0.9% 50 ML 50 ML IV SCH (16:30)
[2018-05-08 16:45] VITALS: BP 148/76
--- NOTE | 2018-05-08 19:10 | NUR ---
Patient visited in room during nursing rounds. Patient alert and oriented x3. Patient Burmese speaking only. Son at bedside. Bilateral lower extremities edematous with left leg and feet more swollen than right leg and feet. Left leg elevated with pillow. Left arm on limb alert due to presence of AV fistula. Patient appear comfortable at this time. Will monitor closely.
[2018-05-08 20:00] VITALS: BP 156/70
[2018-05-08] MEDS: ATORVASTATIN 40 MG TAB PO SCH (21:10)
[2018-05-09] VITALS (7 sets, daily range): BP systolic 143–184; BP diastolic 73–94
[2018-05-09] MEDS: ALBUTEROL/IPRATROPIUM 3 ML NEB NEB SCH ×2 (01:30→07:30)
[2018-05-09 03:39] LABS: BASOPHILS % 0.2 % (0.0-1.0); EOSINOPHILS # (AUTO) 0.1 (0.0-0.4); LYMPHOCYTES # (AUTO) 1.4 (1.0-3.2); LYMPHOCYTES % 22.9 % (18.0-39.1); MEAN CORPUSCULAR HEMOGLOBIN 30.6 pg (28-32); MEAN CORPUSCULAR HGB CONC 33.3 g/dL (31-35); MONOCYTES # (AUTO) 0.7 (0.2-0.8); MONOCYTES % 11.5 % (4.4-11.3); NEUTROPHILS # (AUTO) 3.8 (2.1-6.9); NEUTROPHILS % 63.9 % (38.7-80.0); PLATELET COUNT 139 x10e3/uL (140-360); RED BLOOD COUNT 3.59 x10e6/uL (4.3-5.7); RED CELL DISTRIBUTION WIDTH 14.4 % (11.7-14.4)
[2018-05-09 03:44] LABS: MEAN CORPUSCULAR VOLUME 91.9 fL (81-99)
[2018-05-09 03:51] LABS: ANION GAP 13.6 mmol/L (8-16); CALCIUM 8.4 mg/dL (8.4-10.2); MAGNESIUM 1.8 MG/DL (1.3-2.1); POTASSIUM 3.6 mmol/L (3.5-5.1)
[2018-05-09 04:12] LABS: CREATININE, SERUM 3.25 mg/dL (0.72-1.25)
[2018-05-09] MEDS: PANTOPRAZOLE SOD 40 MG TABEC PO SCH (06:32)
[2018-05-09] MEDS: INSULIN REGULAR, HUMAN 100 UNIT/1 ML 3ML VIAL SQ SCH ×4 (07:30→21:27)
[2018-05-09] MEDS: [UNRECOGNIZED DRUG - REMARK] PO SCH (09:00)
[2018-05-09] MEDS: CYCLOSPORINE 25 MG CAP PO SCH ×2 (09:45→18:26)
[2018-05-09] MEDS: ALLOPURINOL 100 MG TAB PO SCH (09:50)
[2018-05-09] MEDS: PREDNISONE 5 MG TAB PO SCH (09:50)
[2018-05-09] MEDS: FERROUS SULFATE 325 MG TAB PO SCH (09:50)
[2018-05-09] MEDS: METOPROLOL SUCCINATE 50 MG TAB XL PO SCH (09:50)
[2018-05-09] MEDS: GUAIFENESIN 600 MG TAB PO SCH ×2 (09:50→18:26)
[2018-05-09] MEDS: BUMETANIDE 1 MG TAB PO SCH ×2 (09:50→18:26)
[2018-05-09] MEDS: FOLIC ACID 1 MG TAB PO SCH (09:50)
[2018-05-09] MEDS: SITAGLIPTIN 100 MG TAB PO SCH (09:50)
[2018-05-09] MEDS: CHOLECALCIFEROL 1,000 UNIT TAB PEG SCH (09:50)
[2018-05-09] MEDS: CEFEPIME 1GM/NS 0.9% 50 ML 50 ML IV SCH (10:30)
--- NOTE | 2018-05-09 12:25 | NUR ---
Offline Cutter to bedside to discuss plan of care with patient/family. CM/SW role and care transitions discussed. Anticipated discharge plan discussed along with duration of care. CM/SW discussed patients right to make decisions in care. CM/SW work hours given. Patient lives: with and daughter Admit/Transfer: thru ED, from home POA/Emergency contact: sathish Flood [phone] Current/Previous Home Health: none PCP/Follow-up Care: Dr. Rodolfo Ho Current/Previous DME: has walker Other Services: none Employment Status: retired Areas of Concerns: n/a Referral Needs: may need home health Education Needs: cellulitis IMM/MENESES given and signed (if applicable): none at this time Goal for discharge: home with family CM/SW left business card at the bedside with contact information. Name and number was also written on the patients whiteboard. Patient verbalized understanding of discussion. CM will follow-up with ongoing discharge and transition of care needs.
--- NOTE | 2018-05-09 15:38 | NUR ---
IV to the right FA has infiltrated. Attempted x 2 to start new IV without success, medical housekeeper to try.
[2018-05-09] MEDS ORDERED: FUROSEMIDE 40 MG TAB PO SCH (18:00)
--- NOTE | 2018-05-09 19:10 | NUR ---
Patient visited in room during nursing rounds. Patient alert and oriented x3. Patient Nicaraguan speaking only. Family and friends at bedside visiting. Bilateral lower extremities edematous with left leg and feet more swollen than right leg and feet. Left leg elevated with pillow. Left arm on limb alert due to presence of AV fistula. Patient appear comfortable at this time. Will monitor closely.
[2018-05-09] MEDS: IPRATROPIUM BROMIDE 0.02% 2.5 ML NEB NEB SCH (20:00)
[2018-05-09] MEDS: LEVALBUTEROL HCL SOLN NEBU 0.63 MG/3 ML NEB INH SCH (20:00)
[2018-05-09] MEDS: ATORVASTATIN 40 MG TAB PO SCH (21:00)
--- NOTE | 2018-05-09 21:13 | NUR ---
Christy Pimentel (ALANA) called over phone and notified of patient's elevated BP = 184/94. Christy ordered Hydralazine 10mg IV Q3hr prn for SBP > 160.
[2018-05-09] MEDS: DAPTOMYCIN 600 MG in SODIUM CHLORIDE 0.9% 100 ML IV SCH (21:20)
[2018-05-09] MEDS: HYDRALAZINE HCL 20 MG/ML VIAL IV PRN (21:43)
[2018-05-10] VITALS (8 sets, daily range): BP systolic 133–173; BP diastolic 61–87
[2018-05-10] MEDS: IPRATROPIUM BROMIDE 0.02% 2.5 ML NEB NEB SCH ×4 (01:00→19:00)
[2018-05-10] MEDS: LEVALBUTEROL HCL SOLN NEBU 0.63 MG/3 ML NEB INH SCH ×4 (01:00→19:00)
[2018-05-10 05:09] LABS: BASOPHILS % 0.3 % (0.0-1.0); EOSINOPHILS # (AUTO) 0.3 (0.0-0.4); HEMATOCRIT 38.2 % (38.2-49.6); HEMOGLOBIN 12.6 g/dL (14.0-18.0); LYMPHOCYTES # (AUTO) 1.8 (1.0-3.2); MONOCYTES # (AUTO) 0.7 (0.2-0.8); MONOCYTES % 10.1 % (4.4-11.3); NEUTROPHILS # (AUTO) 3.9 (2.1-6.9); NEUTROPHILS % 58.3 % (38.7-80.0); PLATELET COUNT 200 x10e3/uL (140-360); RED CELL DISTRIBUTION WIDTH 14.6 % (11.7-14.4)
[2018-05-10 05:36] LABS: ANION GAP 18.7 mmol/L (8-16); CREATININE, SERUM 3.09 mg/dL (0.72-1.25); MAGNESIUM 1.7 MG/DL (1.3-2.1); PHOSPHORUS 2.4 MG/DL (2.3-4.7); POTASSIUM 3.7 mmol/L (3.5-5.1)
[2018-05-10] MEDS: PANTOPRAZOLE SOD 40 MG TABEC PO SCH (06:44)
[2018-05-10] MEDS: INSULIN REGULAR, HUMAN 100 UNIT/1 ML 3ML VIAL SQ SCH ×4 (07:30→19:52)
[2018-05-10] MEDS: METOPROLOL SUCCINATE 50 MG TAB XL PO SCH (09:00)
[2018-05-10] MEDS: CHOLECALCIFEROL 1,000 UNIT TAB PEG SCH (09:00)
[2018-05-10] MEDS ORDERED: LORAZEPAM INJ 2 MG/ML VIAL IV PRN (09:00)
[2018-05-10] MEDS: GUAIFENESIN 600 MG TAB PO SCH ×2 (09:00→17:07)
[2018-05-10] MEDS: BUMETANIDE 1 MG TAB PO SCH ×2 (09:00→17:07)
[2018-05-10] MEDS: FOLIC ACID 1 MG TAB PO SCH (09:00)
[2018-05-10] MEDS: FERROUS SULFATE 325 MG TAB PO SCH (09:00)
[2018-05-10] MEDS: [UNRECOGNIZED DRUG - REMARK] PO SCH (09:00)
[2018-05-10] MEDS: ALLOPURINOL 100 MG TAB PO SCH (09:00)
[2018-05-10] MEDS: PREDNISONE 5 MG TAB PO SCH (09:00)
--- NOTE | 2018-05-10 10:42 | NUR ---
Spoke with JESÚS Mccormick with infectious diseases regarding plan of care. He spoke with Dr. Patton. Wrote a prescription for PO Doxycycline and instruction to follow up 2 weeks post discharge. CM informed ALANA Harrison of above.
[2018-05-10] MEDS: CEFEPIME 1GM/NS 0.9% 50 ML 50 ML IV SCH (11:30)
[2018-05-10] MEDS: LORATADINE/PSEUDOEPHEDRINE 24 HR SR TAB PO SCH (12:00)
[2018-05-10] MEDS: CYCLOSPORINE 25 MG CAP PO SCH ×2 (12:00→17:07)
[2018-05-10] MEDS: ATORVASTATIN 40 MG TAB PO SCH (21:09)
[2018-05-11] MEDS: HYDRALAZINE HCL 20 MG/ML VIAL IV PRN (00:14)
[2018-05-11] MEDS: IPRATROPIUM BROMIDE 0.02% 2.5 ML NEB NEB SCH ×2 (01:00→07:00)
[2018-05-11] MEDS: LEVALBUTEROL HCL SOLN NEBU 0.63 MG/3 ML NEB INH SCH ×2 (01:00→07:00)
[2018-05-11 01:03] VITALS: BP 182/85
[2018-05-11 05:36] LABS: BASOPHILS % 0.3 % (0.0-1.0); EOSINOPHILS # (AUTO) 0.3 (0.0-0.4); EOSINOPHILS % 4.3 % (0.0-6.0); HEMATOCRIT 35.8 % (38.2-49.6); HEMOGLOBIN 11.9 g/dL (14.0-18.0); LYMPHOCYTES # (AUTO) 1.9 (1.0-3.2); LYMPHOCYTES % 30.9 % (18.0-39.1); MEAN CORPUSCULAR HEMOGLOBIN 30.4 pg (28-32); MEAN CORPUSCULAR HGB CONC 33.2 g/dL (31-35); MEAN CORPUSCULAR VOLUME 91.6 fL (81-99); MONOCYTES # (AUTO) 0.8 (0.2-0.8); MONOCYTES % 13.4 % (4.4-11.3); NEUTROPHILS # (AUTO) 3.1 (2.1-6.9); NEUTROPHILS % 50.6 % (38.7-80.0); PLATELET COUNT 181 x10e3/uL (140-360); RED BLOOD COUNT 3.91 x10e6/uL (4.3-5.7); RED CELL DISTRIBUTION WIDTH 14.7 % (11.7-14.4)
[2018-05-11 05:57] VITALS: BP 151/70
[2018-05-11 05:58] LABS: ANION GAP 15.7 mmol/L (8-16); CALCIUM 8.7 mg/dL (8.4-10.2); CREATININE, SERUM 2.83 mg/dL (0.72-1.25); MAGNESIUM 1.7 MG/DL (1.3-2.1); POTASSIUM 3.7 mmol/L (3.5-5.1)
[2018-05-11] MEDS: INSULIN REGULAR, HUMAN 100 UNIT/1 ML 3ML VIAL SQ SCH ×2 (07:25→11:45)
[2018-05-11 07:59] VITALS: BP 143/67
[2018-05-11 08:25] VITALS: BP 143/67
[2018-05-11] MEDS: METOPROLOL SUCCINATE 50 MG TAB XL PO SCH (08:25)
[2018-05-11] MEDS: PREDNISONE 5 MG TAB PO SCH (08:25)
[2018-05-11] MEDS: GUAIFENESIN 600 MG TAB PO SCH (08:25)
[2018-05-11] MEDS: LORATADINE/PSEUDOEPHEDRINE 24 HR SR TAB PO SCH (08:25)
[2018-05-11] MEDS: FOLIC ACID 1 MG TAB PO SCH (08:25)
[2018-05-11] MEDS: PANTOPRAZOLE SOD 40 MG TABEC PO SCH (08:25)
[2018-05-11] MEDS: BUMETANIDE 1 MG TAB PO SCH (08:25)
[2018-05-11] MEDS: CHOLECALCIFEROL 1,000 UNIT TAB PEG SCH (08:25)
[2018-05-11] MEDS: FERROUS SULFATE 325 MG TAB PO SCH (08:25)
[2018-05-11] MEDS: ALLOPURINOL 100 MG TAB PO SCH (08:25)
[2018-05-11] MEDS ORDERED: MUCINEX600 MG PO (08:54)
[2018-05-11] MEDS ORDERED: TYLENOL WITH C1 EACH PO (08:54)
[2018-05-11] MEDS ORDERED: DOXYCYCLINE PO (08:54)
[2018-05-11] MEDS: [UNRECOGNIZED DRUG - REMARK] PO SCH (09:00)
[2018-05-11] MEDS ORDERED: AMOXICILLIN250 MG PO (09:24)
--- NOTE | 2018-05-11 09:30 | NUR ---
IMM letter delivered and explained to pt and his son at bedside. They verbalized understanding. Pt stated he is ready to discharge home. Signed copy placed in chart. Swedish copy to pt.
--- NOTE | 2018-05-11 10:45 | Progress Note ---
DATE: May 11, 2018 SUBJECTIVE: Feeling better. To be discharged on doxycycline. OBJECTIVE: GENERAL: Lying in bed, in no distress. VITAL SIGNS: Temperature 96.1, pulse 79, blood pressure 143/67. EXTREMITIES: Left leg edema and swollen chronic lymphedema, less erythema. No tenderness. CHEST: Clear. CARDIAC: Normal heart tones. Rhythm sounds regular. ABDOMEN: Graft is nontender. LABS: Hemoglobin 11.9, creatinine 2.83, . ASSESSMENT: 1. Chronic kidney disease 4, status post kidney transplant. 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 He is not very far from his baseline. 2. Intermittent lymphedema, cellulitis improving. PLAN: From a renal standpoint, leave on current immunosuppression. We will follow up in the office. Continue low dose diuretics. Keep leg elevated when possible. We will follow along. Job#: [id number] KATIE MAGALLANES
[2018-05-11] MEDS: CEFEPIME 1GM/NS 0.9% 50 ML 50 ML IV SCH (11:01)
[2018-05-11] MEDS: CYCLOSPORINE 25 MG CAP PO SCH (11:01)
[2018-05-11 11:36] VITALS: BP 150/72
[2018-05-11] MEDS: DAPTOMYCIN 600 MG in SODIUM CHLORIDE 0.9% 100 ML IV SCH (11:45)
--- NOTE | 2018-05-12 03:02 | Discharge Summary ---
ADMISSION DIAGNOSES 1. Chronic kidney disease, stage IV. 2. Diabetes. 3. Hypertension. 4. Lymphedema. 5. Cellulitis. DISCHARGE DIAGNOSES 1. Chronic kidney disease, stage IV. 2. Diabetes. 3. Hypertension. 4. Lymphedema. 5. Cellulitis. 6. Rule out urinary tract infection. 7. Rule out bacteremia. 8. Rule out osteomyelitis. 9. Pneumonia. PAST MEDICAL HISTORY: Patient has a history of hypertension, diabetes, end-stage renal disease. PAST SURGICAL HISTORY: Kidney transplant. HOSPITAL COURSE: A 72-year-old male status post renal transplant 9 years ago, on cyclosporin and low-dose prednisone, reports swelling in his left leg for about 6 years, although he does not ever remember having a blood clot. He came to the hospital complaining of worsening swelling and redness in the leg. He has also noted some fever. On admission, patient was started on vancomycin and Zosyn. Chest x-ray showed left lower lobe opacification concerning for pneumonia. MRI of the foot showed no osteomyelitis. ID was consulted to change the antibiotics to daptomycin and cefepime. Nephrology was consulted to monitor kidney function. Left lower extremity venous Doppler negative for DVT. Blood cultures negative. Urine cultures negative. Urine cultures are negative. After couple days of IV antibiotics, patient is feeling and looking much better. He will be discharged home with doxycycline b.i.d. x2 weeks. He is already taking amoxicillin b.i.d. for life. He will also be given Mucinex p.r.n., Tylenol No. 3 for pain. He will resume all other medicines. He will follow up with nephrology on Sunday and infectious disease in 2 weeks, primary care in 1 to 2 weeks. Patient and son understand discharge instructions and agreed to plan. Vital signs stable. Patient afebrile. Dictated by: Christy Pimentel NP Job#: [id number] RTChandrika
== END 2018-05-11 13:11 | disposition home or self-care (01) | DRG 871 ==
LOC: ER 04:03 → ERHOLD 06:58 → MED/SURG2 08:05 → OBSVTOIN 05-08 14:06
PROVIDERS: ADMIT Internal Medicine; ATTEND Internal Medicine
DX: A41.9 Sepsis, unspecified organism (principal); J18.9 Pneumonia, unspecified organism; L03.116 Cellulitis of left lower limb; Z94.0 Kidney transplant status; L03.311 Cellulitis of abdominal wall; N17.9 Acute kidney failure, unspecified; N18.4 Chronic kidney disease, stage 4 (severe); N39.0 Urinary tract infection, site not specified; E11.22 Type 2 diabetes mellitus with diabetic chronic kidney disease; I12.9 Hypertensive chronic kidney disease with stage 1 through stage 4 chronic kidney disease, or unspecified chronic kidney disease; Z79.899 Other long term (current) drug therapy; I89.0 Lymphedema, not elsewhere classified; E66.9 Obesity, unspecified; Z68.33 Body mass index [BMI] 33.0-33.9, adult; E11.621 Type 2 diabetes mellitus with foot ulcer; L97.529 Non-pressure chronic ulcer of other part of left foot with unspecified severity; E11.42 Type 2 diabetes mellitus with diabetic polyneuropathy; E11.21 Type 2 diabetes mellitus with diabetic nephropathy; K59.00 Constipation, unspecified; R09.81 Nasal congestion; F41.9 Anxiety disorder, unspecified
CPT/HCPCS: 36415; 71046; 80048; 80053; 81001; 82570; 82948; 83735; 83880; 83970; 84100; 84156; 85025; 87040; 87086; 93970; 94640; 96372; 99284; G0378; J0360; J0692; J2270; J2405; J7030; J7050; J7512; J7515

== ENCOUNTER 2018-06-23 16:47 | Emergency (ER) | payer OTHER, MEDICARE ==
[~2018-06-23] VITALS: Ht 170.2 cm; Wt 96.6 kg
[~2018-06-23 16:47] MED LIST changes: -ALLOPURINOL100 MG; +ALLOPURINOL100 MG PO; +AMOXICILLIN250 MG PO; -CYCLOSPORINE25 M2; +CYCLOSPORINE25 M2 PO; +DOXYCYCLINE PO; +MUCINEX600 MG PO; +TYLENOL WITH C1 EACH PO
--- OUTSIDE RECORDS SUMMARY | 2018-06-23 16:51 | XMS REPORT | Continuity of Care Document ---
Author Author [facility] Interface Address Unknown Phone Unavailable Problems Problem Status Onset Date Classification Date Reported Comments Source R52 - "PAIN, UNSPECIFIED" I65.02 - OCCLU Active 11/28/2016 [facility] 719.47 - JOINT PAIN-ANKL Active 06/14/2011 [facility] Medications Medication Details Route Status Patient Instructions [...] is 124 cm/s. There is an atrophic [place] left kidney. The urinary bladder appears normal. [...] is 124 cm/s. There is an atrophic [place] left kidney. The urinary bladder appears normal. [...] Corazon Newton MD 11/23/16 11:15 FINAL REPORT [facility] Spine lumbar minimum 4 views Spine [...] MD 10/22/12 09:57 FINAL REPORT [facility] Chest 2 views Chest 2 views [...] Eladio Engel MD 10/22/12 09:53 FINAL REPORT [facility] Hip bilateral w [...] MD 10/22/12 14:03 FINAL REPORT [facility] Spine sacrum AP [...] Gerardo Cullen MD 10/22/12 14:12 FINAL REPORT [facility] Vital Signs Vital Sign Value Date Comments Source Encounters Location Location Details Encounter Type Encounter Number Reason For Visit Attending Provider ADM Date DC Date Status Source OD [id number] 719.47 - JOINT PAIN-TITAL SHAGGY CARTER 06/14/2011 Active [facility] [id number] Rodolfo Ho 11/23/2016 11/24/2016 [facility] [id number] Rodolfo Ho 11/27/2016 11/28/2016 [facility] [id number] Tao Ortega 12/01/2016 12/02/2016 [facility] [id number] Rodolfo Ho 09/26/2017 09/27/2017 [facility] Procedures Procedure Code Date Perfomer Comments Source
--- OUTSIDE RECORDS SUMMARY | 2018-06-23 16:51 | XMS REPORT | Clinical Summary ---
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 POC-Glucose Meter 158 (H)Comment: TESTED AT 70 - 110 mg/dL [facility] [address] [facility] [address] Specimen Blood Performing Organization Address City/State/Zipcode Phone Number [facility] [address] [place] [address] [facility] * CBC with platelet count + automated diff (01/29/2018 5:03 AM CDT) Only the most recent of 6 results within the time period is included. WBC 6.9 3.5 - 10.5 K/L [facility] RBC 4.85 4.63 - 6.08 M/L [facility] Hemoglobin 14.7 13.7 - 17.5 GM/DL [facility] Hematocrit 45.4 40.1 - 51.0 % [facility] MCV 93.6 (H) 79.0 - 92.2 fL [facility] MCH 30.3 25.7 - 32.2 pg [facility] MCHC 32.4 32.3 - 36.5 GM/DL [facility] RDW 14.3 11.6 - 14.4 % [facility] Platelets 214 150 - 450 K/CU MM [facility] MPV 11.2 9.4 - 12.4 fL [facility] nRBC 0 0 - 0 /100 WBC [facility] % Neutros 50 % [facility] % Lymphs 36 % [facility] % Monos 10 % [facility] % Eos 3 % [facility] % Baso 1 % [facility] # Neutros 3.44 1.78 - 5.38 K/L [facility] # Lymphs 2.46 1.32 - 3.57 K/L [facility] # Monos 0.69 0.30 - 0.82 K/L [facility] # Eos 0.21 0.04 - 0.54 K/L [facility] # Baso 0.04 0.01 - 0.08 K/L [facility] Immature 0 0 - 1 % [facility] Granulocytes-Relative [facility] Specimen Blood Performing Organization Address City/[facility]/Zipcode Phone Number [address] [address] [facility] * Cyclosporine level (01/29/2018 5:03 AM CDT) Only the most recent of 5 results within the time period is included. Cyclosporine Lvl 81 <400 ng/mL [facility] Specimen Blood Performing Organization Address City/State/Zipcode Phone Number [address] [address] [phone] [place] [address] * Magnesium (01/29/2018 5:03 AM CDT) Only the most recent of 5 results within the time period is included. Magnesium 2.1 1.6 - 2.6 mg/dL [facility] Specimen Blood Performing Organization Address City/[facility] Cent[facility]ode Phone Number [address] [address] [phone] [place] [address] * Basic Metabolic Panel (01/29/2018 5:03 AM CDT) Only the most recent of 6 results within the time period is included. Sodium 137 136 - 145 meq/L [facility] Potassium 4.2 3.5 - 5.1 meq/L [facility] Chloride 100 98 - 107 meq/L [facility] CO2 26 22 - 29 meq/L [facility] BUN 62 (H) 7 - 21 mg/dL [facility] Creatinine 3.93 (H) 0.57 - 1.25 mg/dL [facility] Glucose 145 (H) 70 - 105 mg/dL [facility] Calcium 9.6 8.4 - 10.2 mg/dL [facility] EGFR 15Comment: ESTIMATED GFR IS mL/min/1.73 sq m [facility] NOT ACCURATE CREATININE [facility] CLEARANCE IN PREDICTING GLOMERULAR FILTRATION RATE. ESTIMATED GFR IS NOT APPLICABLE FOR DIALYSIS PATIENTS. Specimen Blood Performing Organization Address City/State/Zipcode Phone Number [facility] [address] [place] [address] [facility] * US transplant kidney (01/29/2018 12:20 AM CDT) Narrative Performed At FINAL REPORT [employer] Exam: Ultrasound transplant kidney Clinical History:sugey in [...] MD Report Verified Date/Time:01/29/2018 02:16:00 Reading Location: [facility] B1 C013Y CT Body Reading Room Procedure [...] Report Verified Date/Time: 01/29/2018 02:16:00 Reading Location: [address] Body Reading Room Performing Organization Address City/State/Zipcode Phone Number [facility] * Protein, random urine (01/28/2018 1:10 PM CDT) Protein, Urine 58 (H) 0 - 14 mg/dL [facility] Specimen Urine - Urine, Clean Catch Performing Organization Address City/State/Zipcode Phone Number [facility] [address] [place] [address] [facility] * Creatinine, random urine (01/28/2018 1:10 PM CDT) Creatinine, Ur 54.8 mg/dL [facility] Specimen Urine - Urine, Clean Catch Narrative Performed At Reference Range: No Normals [facility] Performing Organization Address [facility] Centercoky Phone Number [facility] [address] [place] [address] [facility] * Urinalysis w/Microscopic (01/26/2018 9:50 PM CDT) Only the most recent of 2 results within the time period is included. Color, UA Light Yellow [facility] Clarity, UA Clear [facility] Specific [place], UA 1.004 1.001 - 1.035 [facility] pH, UA 7.0 5.0 - 8.0 [facility] Protein, UA 30 mg/dL (A) Negative [facility] Glucose, UA Negative Negative [facility] Ketones, UA Negative Negative [facility] Bilirubin, UA Negative Negative [facility] Blood, UA Trace (A) Negative [facility] Nitrite, UA Negative Negative [facility] Leukocytes, UA Negative Negative [facility] Urobilinogen, UA 0.2 0.2 - 1.0 mg/dL [facility] RBC, UA <1 /HPF [facility] WBC, UA <1 /HPF [facility] Specimen Source [facility] Specimen Urine Performing Organization Address City/[facility] Centercode Phone Number [facility] [address] [place] [address] [facility] * Urine culture (01/25/2018 4:03 PM CDT) Only the most recent of 2 results within the time period is included. Result No growth [facility] Gram Stain Result No White blood cells seen [facility] Gram Stain Result No organisms seen [facility] Specimen Urine - Urine, Clean Catch Performing Organization Address City/State/Zipcode Phone Number [facility] [address] [place] [address] [facility] * Hemoglobin A1c (01/25/2018 5:21 AM CDT) Hemoglobin A1C 6.8 (H) 4.3 - 6.1 % [facility] Specimen Blood - Arm, Right Performing Organization Address City/[facility]/Zipcode Phone Number [facility] [address] [place] [address] [facility] * US testicular (scrotum) (01/24/2018 10:35 PM CDT) Narrative Performed At FINAL REPORT [employer] Exam: Testicular ultrasound. Clinical History: Scrotal cellulitis. [...] MD Report Verified Date/Time:01/25/2018 05:13:46 Reading Location: [address] Transitional Reading Room Procedure Note Interface, [...] Report Verified Date/Time: 01/25/2018 05:13:46 Reading Location: [address] Transitional Reading Room Performing Organization Address City/State/Zipcode Phone Number [facility] * Lactic acid, venous, whole blood (01/24/2018 4:22 PM CDT) Lactate, Venous 0.9Comment: Specimen slightly 0.5 - 2.2 mmol/L [facility] hemolyzed [facility] Specimen Blood - Arm, Right Narrative Performed At Effective 09/15/2015: Units/Reference Range Change [facility] New: 0.5-2.2 mmol/LPrevious: 5-20 mg/dL [facility] Performing Organization Address City/[facility] Centercode Phone Number [address] [address] [phone] [address] * Blood culture (01/24/2018 1:49 PM CDT) Only the most recent of 2 results within the time period is included. Result No growth in 5 days [facility] Specimen Blood - Arm, Right Performing Organization Address City/[facility] Centercode Phone Number [address] [phone] [place] [address] * POC-Lactic Acid, Venous (01/24/2018 1:47 PM CDT) POC-Lactic Acid, Venous 1.8 (H)Comment: TESTED AT 0.9 - 1.7 mmol/L [facility] [address] [place] [address] Specimen Blood Performing Organization Address [facility] Centercode Phone Number [address] [address] [phone] [place] [address] after 06/22/2017 Insurance Payer Benefit Subscriber ID Type Phone Address Plan / Group [facility] xxxxxxxxx MEDICARE MGD CARE MEDICARE [facility] MEDICAID MEDICAID xxxxxxxxx Medicaid [place] Advance Directives For more information, please contact: [facility] [address] [place], [place] [phone] Date Inactivated Comments Code Status Date Activated [...]
[2018-06-23 17:30] LABS: BASOPHILS % 0.3 % (0.0-1.0); EOSINOPHILS # (AUTO) 0.1 (0.0-0.4); EOSINOPHILS % 0.8 % (0.0-6.0); HEMATOCRIT 37.2 % (38.2-49.6); HEMOGLOBIN 12.4 g/dL (14.0-18.0); LYMPHOCYTES # (AUTO) 1.4 (1.0-3.2); LYMPHOCYTES % 17.1 % (18.0-39.1); MEAN CORPUSCULAR HEMOGLOBIN 30.6 pg (28-32); MEAN CORPUSCULAR HGB CONC 33.3 g/dL (31-35); MEAN CORPUSCULAR VOLUME 91.9 fL (81-99); MONOCYTES # (AUTO) 0.6 (0.2-0.8); MONOCYTES % 7.1 % (4.4-11.3); NEUTROPHILS # (AUTO) 5.9 (2.1-6.9); NEUTROPHILS % 74.1 % (38.7-80.0); PLATELET COUNT 229 x10e3/uL (140-360); RED BLOOD COUNT 4.05 x10e6/uL (4.3-5.7); RED CELL DISTRIBUTION WIDTH 14.6 % (11.7-14.4)
[2018-06-23] MEDS ORDERED: HYDROCODONE/APAP 10MG-325MG TAB PO NR (17:30)
[2018-06-23 17:35] LABS: INR 0.92; PARTIAL THROMBOPLASTIN TIME 32.6 seconds (23.8-35.5); PROTHROMBIN TIME 13.2 seconds (11.9-14.5)
[2018-06-23 17:45] LABS: ALBUMIN 2.5 g/dL (3.5-5.0); ALBUMIN/GLOBULIN RATIO 0.5 (0.8-2.0); ANION GAP 14.8 mmol/L (8-16); CALCIUM 9.8 mg/dL (8.4-10.2); CREATININE, SERUM 2.77 mg/dL (0.72-1.25); POTASSIUM 3.8 mmol/L (3.5-5.1)
[2018-06-23] MEDS ORDERED: IBUPROFEN 600 MG TAB ONE (19:32)
== END 2018-06-23 20:24 | disposition home or self-care (01) ==
LOC: ER 16:47
DX: M54.32 Sciatica, left side (principal); I10 Essential (primary) hypertension; E11.9 Type 2 diabetes mellitus without complications; Z94.0 Kidney transplant status
CPT/HCPCS: 36415; 80053; 83880; 85025; 85379; 85610; 85730; 93005; 93971; 99284

== ENCOUNTER 2018-06-28 07:46 | Inpatient (IN) | payer MEDICARE ==
[~2018-06-28] VITALS: Ht 172.7 cm; Wt 95.0 kg
--- OUTSIDE RECORDS SUMMARY | 2018-06-28 07:49 | XMS REPORT | Clinical Summary ---
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 POC-Glucose Meter 158 (H)Comment: TESTED AT 70 - 110 mg/dL [facility] [address] [facility] [address] Specimen Blood Performing Organization Address City/State/Zipcode Phone Number [facility] [address] [place] [address] [facility] * CBC with platelet count + automated diff (01/29/2018 5:03 AM CDT) Only the most recent of 6 results within the time period is included. WBC 6.9 3.5 - 10.5 K/L [facility] RBC 4.85 4.63 - 6.08 M/L [facility] Hemoglobin 14.7 13.7 - 17.5 GM/DL [facility] Hematocrit 45.4 40.1 - 51.0 % [facility] MCV 93.6 (H) 79.0 - 92.2 fL [facility] MCH 30.3 25.7 - 32.2 pg [facility] MCHC 32.4 32.3 - 36.5 GM/DL [facility] RDW 14.3 11.6 - 14.4 % [facility] Platelets 214 150 - 450 K/CU MM [facility] MPV 11.2 9.4 - 12.4 fL [facility] nRBC 0 0 - 0 /100 WBC [facility] % Neutros 50 % [facility] % Lymphs 36 % [facility] % Monos 10 % [facility] % Eos 3 % [facility] % Baso 1 % [facility] # Neutros 3.44 1.78 - 5.38 K/L [facility] # Lymphs 2.46 1.32 - 3.57 K/L [facility] # Monos 0.69 0.30 - 0.82 K/L [facility] # Eos 0.21 0.04 - 0.54 K/L [facility] # Baso 0.04 0.01 - 0.08 K/L [facility] Immature 0 0 - 1 % [facility] Granulocytes-Relative [facility] Specimen Blood Performing Organization Address City/[facility]/Zipcode Phone Number [address] [address] [facility] * Cyclosporine level (01/29/2018 5:03 AM CDT) Only the most recent of 5 results within the time period is included. Cyclosporine Lvl 81 <400 ng/mL [facility] Specimen Blood Performing Organization Address City/State/Zipcode Phone Number [address] [address] [phone] [place] [address] * Magnesium (01/29/2018 5:03 AM CDT) Only the most recent of 5 results within the time period is included. Magnesium 2.1 1.6 - 2.6 mg/dL [facility] Specimen Blood Performing Organization Address City/[facility] Hospitalcode Phone Number [address] [address] [phone] [place] [address] * Basic Metabolic Panel (01/29/2018 5:03 AM CDT) Only the most recent of 6 results within the time period is included. Sodium 137 136 - 145 meq/L [facility] Potassium 4.2 3.5 - 5.1 meq/L [facility] Chloride 100 98 - 107 meq/L [facility] CO2 26 22 - 29 meq/L [facility] BUN 62 (H) 7 - 21 mg/dL [facility] Creatinine 3.93 (H) 0.57 - 1.25 mg/dL [facility] Glucose 145 (H) 70 - 105 mg/dL [facility] Calcium 9.6 8.4 - 10.2 mg/dL [facility] EGFR 15Comment: ESTIMATED GFR IS mL/min/1.73 sq m [facility] NOT ACCURATE CREATININE [facility] CLEARANCE IN PREDICTING GLOMERULAR FILTRATION RATE. ESTIMATED GFR IS NOT APPLICABLE FOR DIALYSIS PATIENTS. Specimen Blood Performing Organization Address City/State/Zipcode Phone Number [facility] [address] [place] [address] [facility] * US transplant kidney (01/29/2018 12:20 AM CDT) Narrative Performed At FINAL REPORT [employer] Exam: Ultrasound transplant kidney Clinical History:sugey in [...] MD Report Verified Date/Time:01/29/2018 02:16:00 Reading Location: [facility] B1 C013Y CT Body Reading Room [...] Report Verified Date/Time: 01/29/2018 02:16:00 Reading Location: [address] Body Reading Room Performing Organization Address City/State/Zipcode Phone Number [facility] * Protein, random urine (01/28/2018 1:10 PM CDT) Protein, Urine 58 (H) 0 - 14 mg/dL [facility] Specimen Urine - Urine, Clean Catch Performing Organization Address City/State/Zipcode Phone Number [facility] [address] [place] [address] [facility] * Creatinine, random urine (01/28/2018 1:10 PM CDT) Creatinine, Ur 54.8 mg/dL [facility] Specimen Urine - Urine, Clean Catch Narrative Performed At Reference Range: No Normals [facility] Performing Organization Address [facility] Hospitalcoil Phone Number [facility] [address] [place] [address] [facility] * Urinalysis w/Microscopic (01/26/2018 9:50 PM CDT) Only the most recent of 2 results within the time period is included. Color, UA Light Yellow [facility] Clarity, UA Clear [facility] Specific [place], UA 1.004 1.001 - 1.035 [facility] pH, UA 7.0 5.0 - 8.0 [facility] Protein, UA 30 mg/dL (A) Negative [facility] Glucose, UA Negative Negative [facility] Ketones, UA Negative Negative [facility] Bilirubin, UA Negative Negative [facility] Blood, UA Trace (A) Negative [facility] Nitrite, UA Negative Negative [facility] Leukocytes, UA Negative Negative [facility] Urobilinogen, UA 0.2 0.2 - 1.0 mg/dL [facility] RBC, UA <1 /HPF [facility] WBC, UA <1 /HPF [facility] Specimen Source [facility] Specimen Urine Performing Organization Address City/[facility] Hospitalcode Phone Number [facility] [address] [place] [address] [facility] * Urine culture (01/25/2018 4:03 PM CDT) Only the most recent of 2 results within the time period is included. Result No growth [facility] Gram Stain Result No White blood cells seen [facility] Gram Stain Result No organisms seen [facility] Specimen Urine - Urine, Clean Catch Performing Organization Address City/State/Zipcode Phone Number [facility] [address] [place] [address] [facility] * Hemoglobin A1c (01/25/2018 5:21 AM CDT) Hemoglobin A1C 6.8 (H) 4.3 - 6.1 % [facility] Specimen Blood - Arm, Right Performing Organization Address City/[facility]/Zipcode Phone Number [facility] [address] [place] [address] [facility] * US testicular (scrotum) (01/24/2018 10:35 PM CDT) Narrative Performed At FINAL REPORT [employer] Exam: Testicular ultrasound. Clinical History: Scrotal cellulitis. [...] MD Report Verified Date/Time:01/25/2018 05:13:46 Reading Location: [address] Transitional Reading Room Procedure Note Interface, [...] Report Verified Date/Time: 01/25/2018 05:13:46 Reading Location: [address] Transitional Reading Room Performing Organization Address City/State/Zipcode Phone Number [facility] * Lactic acid, venous, whole blood (01/24/2018 4:22 PM CDT) Lactate, Venous 0.9Comment: Specimen slightly 0.5 - 2.2 mmol/L [facility] hemolyzed [facility] Specimen Blood - Arm, Right Narrative Performed At Effective 09/15/2015: Units/Reference Range Change [facility] New: 0.5-2.2 mmol/LPrevious: 5-20 mg/dL [facility] Performing Organization Address City/[facility] Hospitalcode Phone Number [address] [address] [phone] [place] [address] * Blood culture (01/24/2018 1:49 PM CDT) Only the most recent of 2 results within the time period is included. Result No growth in 5 days [facility] Specimen Blood - Arm, Right Performing Organization Address City/[facility] Hospitalcode Phone Number [address] [phone] [place] [address] * POC-Lactic Acid, Venous (01/24/2018 1:47 PM CDT) POC-Lactic Acid, Venous 1.8 (H)Comment: TESTED AT 0.9 - 1.7 mmol/L [facility] [address] [place] [address] Specimen Blood Performing Organization Address [facility] Hospitalcode Phone Number [address] [address] [phone] [place] [address] after 06/27/2017 Insurance Payer Benefit Subscriber ID Type Phone Address Plan / Group [facility] xxxxxxxxx MEDICARE MGD CARE MEDICARE [facility] MEDICAID MEDICAID xxxxxxxxx Medicaid OF [place] Advance Directives For more information, please contact: [facility] [address] [place], [place] [phone] Date Inactivated Comments Code Status Date Activated [...]
--- NOTE | 2018-06-28 08:30 | NUR ---
US at bedside.
--- NOTE | 2018-06-28 09:04 | NUR ---
US leaves bedside.
[2018-06-28 09:39] LABS: BASOPHILS % 0.1 % (0.0-1.0); EOSINOPHILS # (AUTO) 0.1 (0.0-0.4); EOSINOPHILS % 0.5 % (0.0-6.0); HEMATOCRIT 37.3 % (38.2-49.6); HEMOGLOBIN 12.4 g/dL (14.0-18.0); LYMPHOCYTES # (AUTO) 1.7 (1.0-3.2); LYMPHOCYTES % 13.6 % (18.0-39.1); MEAN CORPUSCULAR HEMOGLOBIN 30.2 pg (28-32); MEAN CORPUSCULAR HGB CONC 33.2 g/dL (31-35); MEAN CORPUSCULAR VOLUME 90.8 fL (81-99); MONOCYTES # (AUTO) 0.6 (0.2-0.8); MONOCYTES % 5.3 % (4.4-11.3); NEUTROPHILS # (AUTO) 9.8 (2.1-6.9); NEUTROPHILS % 80.2 % (38.7-80.0); PLATELET COUNT 255 x10e3/uL (140-360); RED BLOOD COUNT 4.11 x10e6/uL (4.3-5.7); RED CELL DISTRIBUTION WIDTH 14.6 % (11.7-14.4)
--- NOTE | 2018-06-28 09:43 | Diagnostic Imaging Report ---
RIGHT UPPER QUADRANT ULTRASOUND TECHNIQUE: Ultrasound evaluation of the right upper quadrant abdomen. Color Doppler evaluation was utilized to supplement the evaluation. Per the technologist performing the exam, the evaluation is partially limited by regional bowel gas. HISTORY: Evaluate transplant kidney, fever, dysuria, abdominal pain COMPARISON: None available. DISCUSSION: LIVER: No focal lesion identified. The liver measures 15 cm in length in the right mid-clavicular line. BILIARY: A 1.1 cm echogenic, shadowing focus at the neck. The sonographic Luke's sign is reported as negative. Common bile duct measures 0.3 cm. RIGHT KIDNEY: Transplanted kidney 13 cm in length. No hydronephrosis, solid mass, or cystic lesion identified. PANCREAS: Partially obscured by regional bowel gas, but no abnormality identified within this limitation. PERITONEUM: No free fluid. VASCULATURE: The visualized portions of the aorta and inferior vena cava appear unremarkable. The portal vein is patent with hepatopedal flow. IMPRESSION: 1. No hydronephrosis or focal abnormality identified involving the transplanted kidney. 2. A 1.1 cm stone at the neck of the gallbladder, without associated signs of acute cholecystitis. Signed by: Dr. Jean Jamison D.O., M.M.M. on 06/28/2018 9:39 AM
[2018-06-28] MEDS ORDERED: ACETAMINOPHEN 325 MG TAB PO ONE (09:45)
[2018-06-28 09:47] LABS: CLARITY,URINE CLEAR (CLEAR); COLOR,URINE YELLOW (YELLOW)
[2018-06-28 09:48] LABS: BILIRUBIN,URINE NEGATIVE (NEGATIVE); KETONES,URINE NEGATIVE (NEGATIVE); LEUKOCYTE ESTERASE ,URINE NEGATIVE (NEGATIVE); NITRITE,URINE NEGATIVE (NEGATIVE); PROTEIN,URINE DIPSTICK 2+ (NEGATIVE); URINE UROBILINOGEN 0.2 mg/dL (0.2 - 1)
[2018-06-28 09:59] LABS: BACTERIA,URINE FEW /HPF; EPITHELIAL CELLS,URINE RARE /LPF; WBC,URINE (MAN) 0-5 /HPF (0-5)
[2018-06-28 10:06] LABS: ALBUMIN 2.4 g/dL (3.5-5.0); ALBUMIN/GLOBULIN RATIO 0.5 (0.8-2.0); ANION GAP 16.9 mmol/L (8-16); CALCIUM 9.6 mg/dL (8.4-10.2); CREATININE, SERUM 2.84 mg/dL (0.72-1.25); POTASSIUM 3.9 mmol/L (3.5-5.1)
[2018-06-28] MEDS ORDERED: SODIUM CHLORIDE 0.9% 1000ML 1,000 ML IV ONE (10:45)
--- NOTE | 2018-06-28 10:54 | NUR ---
pt noted to be resting in bed with eyes closed and in no distress at this time.
[2018-06-28] MEDS ORDERED: ACETAMINOPHEN 1000 MG/100 ML IV PRN (11:30)
[2018-06-28] MEDS ORDERED: SODIUM CHLORIDE FLUSH 10 ML SYR INJ PRN (11:30)
[2018-06-28] MEDS ORDERED: ONDANSETRON HCL INJ 2MG/ML 2ML 2 MG/ML VIAL IV PRN (11:30)
[2018-06-28] MEDS ORDERED: CEFTRIAXONE SOD 1 GM/NS 50 ML 50 ML IV ONE (12:00)
--- OUTSIDE RECORDS SUMMARY | 2018-06-28 13:08 | XMS REPORT | Clinical Summary ---
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 WBC 6.9 3.5 - 10.5 K/L [facility] RBC 4.85 4.63 - 6.08 M/L [facility] Hemoglobin 14.7 13.7 - 17.5 GM/DL [facility] Hematocrit 45.4 40.1 - 51.0 % [facility] MCV 93.6 (H) 79.0 - 92.2 fL [facility] MCH 30.3 25.7 - 32.2 pg [facility] MCHC 32.4 32.3 - 36.5 GM/DL [facility] RDW 14.3 11.6 - 14.4 % [facility] Platelets 214 150 - 450 K/CU MM [facility] MPV 11.2 9.4 - 12.4 fL [facility] nRBC 0 0 - 0 /100 WBC [facility] % Neutros 50 % [facility] % Lymphs 36 % [facility] % Monos 10 % [facility] % Eos 3 % [facility] % Baso 1 % [facility] # Neutros 3.44 1.78 - 5.38 K/L [facility] # Lymphs 2.46 1.32 - 3.57 K/L [facility] # Monos 0.69 0.30 - 0.82 K/L [facility] # Eos 0.21 0.04 - 0.54 K/L [facility] # Baso 0.04 0.01 - 0.08 K/L [facility] Immature 0 0 - 1 % [facility] Granulocytes-Relative [facility] Specimen Blood Performing Organization Address City/[facility]/Zipcode Phone Number [address] [address] [facility] * Cyclosporine level (01/29/2018 5:03 AM CDT) Only the most recent of 5 results within the time period is included. Cyclosporine Lvl 81 <400 ng/mL [facility] Specimen Blood Performing Organization Address City/State/Zipcode Phone Number [address] [address] [phone] [place] [address] * Magnesium (01/29/2018 5:03 AM CDT) Only the most recent of 5 results within the time period is included. Magnesium 2.1 1.6 - 2.6 mg/dL [facility] Specimen Blood Performing Organization Address City/[facility] Phone Number [address] [address] [phone] [place] [address] * Basic Metabolic Panel (01/29/2018 5:03 AM CDT) Only the most recent of 6 results within the time period is included. Sodium 137 136 - 145 meq/L [facility] Potassium 4.2 3.5 - 5.1 meq/L [facility] Chloride 100 98 - 107 meq/L [facility] CO2 26 22 - 29 meq/L [facility] BUN 62 (H) 7 - 21 mg/dL [facility] Creatinine 3.93 (H) 0.57 - 1.25 mg/dL [facility] Glucose 145 (H) 70 - 105 mg/dL [facility] Calcium 9.6 8.4 - 10.2 mg/dL [facility] EGFR 15Comment: ESTIMATED GFR IS mL/min/1.73 sq m [facility] NOT ACCURATE CREATININE [facility] CLEARANCE IN PREDICTING GLOMERULAR FILTRATION RATE. ESTIMATED GFR IS NOT APPLICABLE FOR DIALYSIS PATIENTS. Specimen Blood Performing Organization Address City/State/Zipcode Phone Number [facility] [address] [place] [address] [facility] * US transplant kidney (01/29/2018 12:20 AM CDT) Narrative Performed At FINAL REPORT lmbang Exam: Ultrasound transplant kidney Clinical History:sugey in [...] MD Report Verified Date/Time:01/29/2018 02:16:00 Reading Location: [facility] B1 [id number] CT Body Reading Room Procedure [...] Report Verified Date/Time: 01/29/2018 02:16:00 Reading Location: [address] Body Reading Room Performing Organization Address City/State/Zipcode Phone Number [facility] * Protein, random urine (01/28/2018 1:10 PM CDT) Protein, Urine 58 (H) 0 - 14 mg/dL [facility] Specimen Urine - Urine, Clean Catch Performing Organization Address City/State/Zipcode Phone Number [facility] [address] [place] [address] [facility] * Creatinine, random urine (01/28/2018 1:10 PM CDT) Creatinine, Ur 54.8 mg/dL [facility] Specimen Urine - Urine, Clean Catch Narrative Performed At Reference Range: No Normals [facility] Performing Organization Address [facility] Phone Number [facility] [address] [place] [address] [facility] * Urinalysis w/Microscopic (01/26/2018 9:50 PM CDT) Only the most recent of 2 results within the time period is included. Color, UA Light Yellow [facility] Clarity, UA Clear [facility] Specific [place], UA 1.004 1.001 - 1.035 [facility] pH, UA 7.0 5.0 - 8.0 [facility] Protein, UA 30 mg/dL (A) Negative [facility] Glucose, UA Negative Negative [facility] Ketones, UA Negative Negative [facility] Bilirubin, UA Negative Negative [facility] Blood, UA Trace (A) Negative [facility] Nitrite, UA Negative Negative [facility] Leukocytes, UA Negative Negative [facility] Urobilinogen, UA 0.2 0.2 - 1.0 mg/dL [facility] RBC, UA <1 /HPF [facility] WBC, UA <1 /HPF [facility] Specimen Source [facility] Specimen Urine Performing Organization Address City/[facility] Phone Number [facility] [address] [place] [address] [facility] * Urine culture (01/25/2018 4:03 PM CDT) Only the most recent of 2 results within the time period is included. Result No growth [facility] Gram Stain Result No White blood cells seen [facility] Gram Stain Result No organisms seen [facility] Specimen Urine - Urine, Clean Catch Performing Organization Address City/State/Zipcode Phone Number [facility] [address] [place] [address] [facility] * Hemoglobin A1c (01/25/2018 5:21 AM CDT) Hemoglobin A1C 6.8 (H) 4.3 - 6.1 % [facility] Specimen Blood - Arm, Right Performing Organization Address City/[facility]/Zipcode Phone Number [facility] [address] [place] [address] [facility] * US testicular (scrotum) (01/24/2018 10:35 PM CDT) Narrative Performed At FINAL REPORT lmbang Exam: Testicular ultrasound. Clinical History: Scrotal cellulitis. [...] MD Report Verified Date/Time:01/25/2018 05:13:46 Reading Location: [address] Transitional Reading Room Procedure Note Interface, [...] Report Verified Date/Time: 01/25/2018 05:13:46 Reading Location: [address] Transitional Reading Room Performing Organization Address City/State/Zipcode Phone Number [facility] * Lactic acid, venous, whole blood (01/24/2018 4:22 PM CDT) Lactate, Venous 0.9Comment: Specimen slightly 0.5 - 2.2 mmol/L [facility] hemolyzed [facility] Specimen Blood - Arm, Right Narrative Performed At Effective 09/15/2015: Units/Reference Range Change [facility] New: 0.5-2.2 mmol/LPrevious: 5-20 mg/dL [facility] Performing Organization Address City/[facility] Phone Number [address] [address] [phone] [place] [address] * Blood culture (01/24/2018 1:49 PM CDT) Only the most recent of 2 results within the time period is included. Result No growth in 5 days [facility] Specimen Blood - Arm, Right Performing Organization Address City/[facility] Phone Number [address] [phone] [place] [address] * POC-Lactic Acid, Venous (01/24/2018 1:47 PM CDT) POC-Lactic Acid, Venous 1.8 (H)Comment: TESTED AT 0.9 - 1.7 mmol/L [facility] [address] [place] [id number] Specimen Blood Performing Organization Address [facility] Phone Number [address] [address] [phone] [place] [address] after 06/27/2017 Insurance Payer Benefit Subscriber ID Type Phone Address Plan / Group [facility] xxxxxxxxx MEDICARE MGD CARE MEDICARE [facility] [place] MEDICAID xxxxxxxxx Medicaid [place] Advance Directives For more information, please contact: [facility] [address] [place], [place] [id number] Date Inactivated Comments Code Status Date Activated [...]
[2018-06-28 14:55] VITALS: BP 139/70
[2018-06-28] MEDS ORDERED: CEFTRIAXONE SOD 1 GM/NS 50 ML 50 ML IV SCH (15:30)
[2018-06-28] MEDS ORDERED: VANCOMYCIN 1GM/NS 250 ML 250 ML IV ONE (15:30)
[2018-06-28 15:43] VITALS: BP 139/70
--- NOTE | 2018-06-28 15:49 | Diagnostic Imaging Report ---
EXAM: CT of the abdomen and pelvis WITHOUT contrast HISTORY: Abdominal pain, Kidney Transplant patient, Febrile, chills, pain left leg COMPARISON: Abdominal ultrasound from earlier the same date. TECHNIQUE: The abdomen and pelvis were scanned utilizing a multidetector helical scanner. Coronal and sagittal reformats are available. PROTOCOL: Routine IV CONTRAST: None, which limits sensitivity and specificity of evaluation of the soft tissues and vascular structures. ORAL CONTRAST: None, which limits sensitivity and specificity of evaluation of the bowel. RADIATION DOSE: Total DLP: 834.17 mGy*cm Estimated effective dose: (DLP x 0.015 x size factor) Dose modulation, iterative reconstruction, and/or weight based adjustment of the mA/kV was utilized to reduce the radiation dose to as low as reasonably achievable. COMPLICATIONS: None FINDINGS: LOWER THORAX: Mild right greater than left atelectasis. Mild cardiomegaly. HEPATOBILIARY: No definite focal hepatic lesions. No biliary ductal dilatation. A 1.1 cm subtle curvilinear focus near the neck with internal fat density, may reflect a noncalcified cholesterol stone. SPLEEN: No splenomegaly. PANCREAS: No focal masses or ductal dilatation. ADRENALS: No adrenal nodule. KIDNEYS/URETERS: Severe bilateral atrophy of the southern [place] kidneys. The transplanted kidney is within the right hemipelvis, prominent renal adipose tissue. No hydronephrosis or stone. Subtle cortical hypodensities at the medial pole (for example series 2 image 70). Mild nonspecific adjacent fat stranding. PELVIC ORGANS/BLADDER: The urinary bladder is partially decompressed, but otherwise appears unremarkable. PERITONEUM / RETROPERITONEUM: No free air or fluid. GI TRACT: On limited evaluation of the gastrointestinal tract, no dilation or wall thickening identified. The appendix is normal. Prominent sigmoid diverticulosis, without CT evidence of acute diverticulitis. LYMPH NODES: No pathologically enlarged lymph nodes. VESSELS: Scattered atherosclerotic vascular calcifications, including the coronary arteries. BONES: Bilateral pars defects at L5 with associated grade 1 anterolisthesis of L5 on S1 and severe L5-S1 degenerative disc changes. Severe bilateral hip arthropathy with a moderate left and small right nonspecific effusion. Extensive associated subchondral cystic changes. SOFT TISSUES: Left flank shaped retroareolar density, most likely gynecomastia, the right retroareolar region is not included. IMPRESSION: 1. No CT finding to definitively explain a source of infection. 2. No hydronephrosis of the transplanted kidney, mild nonspecific perinephric fat stranding. 3. Probable cholelithiasis. 4. Colonic diverticulosis. 5. Coronary atherosclerosis. 6. L5 spondylolysis with associated anterolisthesis. 7. Severe bilateral hip arthropathy, considerations include amyloid arthropathy, CPPD arthropathy, and chronic inflammatory arthropathy in the appropriate settings. Signed by: Dr. Jean Jamison D.O., M.M.M. on 06/28/2018 3:45 PM
--- NOTE | 2018-06-28 15:53 | Consultation ---
DATE OF CONSULTATION: June 28, 2018 Mr. Luis M Flood is known to our nephrology service. 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 Maintained on cyclosporin 50 mg p.o. b.i.d. Also takes prednisone 5 mg daily. Presented with fever and chills. Found to have a white count of 12.16, hemoglobin 12.4. Sodium 137, potassium 3.9, creatinine 2.84. Total bilirubin 1.2, alkaline phosphatase 182. Urinalysis is relatively benign except for RBCs 6-10 and WBCs 0-5. Blood and urine cultures have been sent. Currently lying supine in no apparent distress. Daughter by bedside. Currently started on ceftriaxone. Also receiving normal saline at 125 mL an hour. SOCIAL HISTORY: Does not smoke or drink. FAMILY HISTORY: Significant for hypertension. PHYSICAL EXAMINATION GENERAL: Alert, lying supine in no apparent distress. VITALS: Blood pressure 130/60, pulse rate 80. HEAD AND NECK: Corneas are clear. Oral mucosa is moist. Neck veins are flat. LUNGS: Relatively clear. HEART: S1 and S2 audible. ABDOMEN: Soft, nontender. LOWER EXTREMITIES: Chronic lymphedema, right lower extremity. Mild redness noted over the skin. IMPRESSION AND PLAN 1. Fever and chills, slightly elevated white count. Cultures have been done. I will give 1 gram of vancomycin IV and ceftriaxone which I will continue. Cultures are pending. Will resume transplant medications. 2. Has mild [id number] kidney failure. Underlying chronic kidney disease, stage 3. Please see orders. Job#: [id number]
[2018-06-28] MEDS ORDERED: CYCLOSPORINE 25 MG CAP PO SCH (17:00)
[2018-06-28] MEDS: SODIUM CHLORIDE 0.9% 1000ML 1,000 ML IV SCH ×2 (17:25→19:16)
[2018-06-28 17:42] VITALS: BP 139/70
[2018-06-28] MEDS: CYCLOSPORINE 25 MG CAP PO SCH (18:08)
--- NOTE | 2018-06-28 19:27 | NUR ---
Patient received sitting up in bed. AAO x 3. Son at bedside. Patient had no complaints of pain. Respirations even and non-labored. Bed locked and in lowest position. Bed rails up x 2. Patient instructed to call for assistance when needed. Call light within reach.
[2018-06-28] MEDS ORDERED: ULTRAM50 MG PO (19:53)
[2018-06-28] MEDS ORDERED: GLIPIZIDE ER5 MG PO (19:53)
[2018-06-28] MEDS ORDERED: PRAVASTATIN SOD80 MG PO (19:53)
[2018-06-28] MEDS ORDERED: METOPROLOL TART50 MG PO (19:53)
[2018-06-28] MEDS ORDERED: SIMETHICONE80 MG PO (19:53)
[2018-06-28] MEDS ORDERED: CALCITRIOL0.25 MCG PO (19:53)
[2018-06-28] MEDS: ACETAMINOPHEN/CODEINE 300MG - 30MG TAB PO PRN (20:04)
[2018-06-28 21:00] VITALS: BP 139/70
[2018-06-28] MEDS: SIMVASTATIN 40 MG TAB PO SCH (21:00)
[2018-06-28 21:02] VITALS: BP 138/66
[2018-06-29] VITALS (8 sets, daily range): BP systolic 139–179; BP diastolic 76–88
[2018-06-29] MEDS: SODIUM CHLORIDE 0.9% 1000ML 1,000 ML IV SCH ×3 (03:16→17:35)
--- NOTE | 2018-06-29 03:31 | NUR ---
Blood specimen sent to laboratory for analysis.
[2018-06-29 03:35] LABS: BASOPHILS % 0.3 % (0.0-1.0); EOSINOPHILS # (AUTO) 0.1 (0.0-0.4); EOSINOPHILS % 1.4 % (0.0-6.0); HEMOGLOBIN 10.5 g/dL (14.0-18.0); LYMPHOCYTES # (AUTO) 1.7 (1.0-3.2); LYMPHOCYTES % 23.9 % (18.0-39.1); MEAN CORPUSCULAR HEMOGLOBIN 30.7 pg (28-32); MEAN CORPUSCULAR HGB CONC 33.9 g/dL (31-35); MEAN CORPUSCULAR VOLUME 90.6 fL (81-99); MONOCYTES # (AUTO) 0.7 (0.2-0.8); MONOCYTES % 9.2 % (4.4-11.3); NEUTROPHILS # (AUTO) 4.6 (2.1-6.9); NEUTROPHILS % 64.9 % (38.7-80.0); PLATELET COUNT 211 x10e3/uL (140-360); RED BLOOD COUNT 3.42 x10e6/uL (4.3-5.7); RED CELL DISTRIBUTION WIDTH 14.8 % (11.7-14.4)
[2018-06-29 03:54] LABS: INR 1.09; PROTHROMBIN TIME 15.1 seconds (11.9-14.5)
[2018-06-29 03:55] LABS: PARTIAL THROMBOPLASTIN TIME 33.7 seconds (23.8-35.5)
[2018-06-29 04:04] LABS: ALBUMIN 1.9 g/dL (3.5-5.0); ALBUMIN/GLOBULIN RATIO 0.5 (0.8-2.0); ANION GAP 14.9 mmol/L (8-16); CALCIUM 8.7 mg/dL (8.4-10.2); CREATININE, SERUM 2.42 mg/dL (0.72-1.25); PHOSPHORUS 3.3 MG/DL (2.3-4.7); POTASSIUM 3.9 mmol/L (3.5-5.1)
[2018-06-29 04:24] LABS: FERRITIN 577.92 ng/mL (21.81-274.66)
[2018-06-29 04:43] LABS: FOLATE 15.4 ng/mL (7.0-15.4)
--- NOTE | 2018-06-29 06:08 | NUR ---
Patient's BP elevated (164/77) , Dr. Tony puri. Awaiting call back.
--- NOTE | 2018-06-29 06:57 | Diagnostic Imaging Report ---
EXAMINATION: CHEST SINGLE (PORTABLE) INDICATION: Fever COMPARISON: Chest x-ray 05/07/2018, CT abdomen and pelvis 06/28/2018 FINDINGS: TUBES and LINES: None. LUNGS: There is no evidence of pneumonia or pulmonary edema. PLEURA: No significant pleural effusion or pneumothorax. HEART AND MEDIASTINUM: The cardiomediastinal silhouette is accentuated by lung volumes and technique. BONES AND SOFT TISSUES: No acute osseous lesion. Soft tissues are unremarkable. UPPER ABDOMEN: No free air under the diaphragm. IMPRESSION: No acute thoracic abnormalities. Signed by: DR. Yariel Samuel MD on 06/29/2018 6:54 AM
[2018-06-29] MEDS ORDERED: AMOXICILLIN 250 MG CAP PO SCH (09:00)
[2018-06-29] MEDS ORDERED: ALLOPURINOL 100 MG TAB PO SCH (09:00)
[2018-06-29] MEDS ORDERED: NON-FORMULARY MEDICATION (Prednisone 5 MG) PO SCH (09:00)
[2018-06-29] MEDS ORDERED: NON-FORMULARY MEDICATION (Metoprolol Succinate 100 MG) PO SCH (09:00)
[2018-06-29] MEDS: BUMETANIDE 1 MG TAB PO SCH ×2 (09:55→17:22)
[2018-06-29] MEDS: SITAGLIPTIN 100 MG TAB PO SCH (09:55)
[2018-06-29] MEDS: FOLIC ACID 1 MG TAB PO SCH (09:55)
[2018-06-29] MEDS: PREDNISONE 5 MG TAB PO SCH (09:55)
[2018-06-29] MEDS: CYCLOSPORINE 25 MG CAP PO SCH ×2 (09:55→17:22)
[2018-06-29] MEDS: PANTOPRAZOLE SOD 40 MG TABEC PO SCH (09:55)
[2018-06-29] MEDS: FERROUS SULFATE 325 MG TAB PO SCH (09:55)
[2018-06-29] MEDS: METOPROLOL SUCCINATE 50 MG TAB XL PO SCH (09:56)
[2018-06-29] MEDS: ALLOPURINOL 100 MG TAB PO SCH ×2 (09:56→17:22)
[2018-06-29] MEDS: GLIPIZIDE 2.5 MG TABCR PO SCH (10:06)
--- NOTE | 2018-06-29 10:08 | NUR ---
Dr. Macedo notified at this time regarding consult for this patient. He states he will "try to see patient this afternoon or first thing in the morning."
[2018-06-29] MEDS: INSULIN LISPRO 100 UNIT/1 ML 3ML VIAL SQ SCH ×3 (11:45→21:00)
[2018-06-29] MEDS ORDERED: CEFTRIAXONE SOD 1 GM/NS 50 ML 50 ML IV ONE (12:00)
[2018-06-29] MEDS: CEFTRIAXONE SOD 1 GM/NS 50 ML 50 ML IV SCH (12:56)
--- NOTE | 2018-06-29 15:50 | NUR ---
Patient lives: lives with and sister Admit/Transfer: Admit Hospital/ER visits since last admit: April at [facility] POA/Emergency contact: Joy Ordaz [phone] Current/Previous Home Health: N/A PCP/Follow-up Care: Rodolfo Ho MD Current/Previous DME: Walker and wheelchair Medications (referring to index hospitalization or the first time you were in the hospital) a. Were changes made in your medications when you were in the hospital on [date of index hospitalization]? Yes ?No Not sure Explain: Note: If no or not sure, please skip to question d b. Did you understand the changes? Yes No Explain: c. Were you able to obtain your new medications right away? Yes No n/a SNF only Explain: d. Were you able to take your medications like the doctor wanted you to? Yes No Explain: e. Did the hospital give you an accurate, easy to understand list of medications when you left? Yes No n/a SNF only Explain: Scale of 1-10 how comfortable does patient feel with disease management in outpatient setting: Other Services: Employment Status: retired Areas of Concerns: Referral Needs: Education Needs: IMM/MENESES given and signed (if applicable): Goal for discharge:
[2018-06-29] MEDS ORDERED: OMEGA 3 FISH O1 EACH PO (15:54)
[2018-06-29] MEDS ORDERED: FAMOTIDINE20 MG PO (15:54)
--- NOTE | 2018-06-29 16:42 | Consultation ---
DATE OF CONSULTATION: REASON FOR CONSULTATION: Fever. HISTORY OF PRESENT ILLNESS: This patient who is a 72-year-old male with history of end-stage renal disease, on hemodialysis, chronic lymphedema, anemia of chronic disease, diabetes mellitus, hyperlipidemia, hypertension, status post cadaver renal transplant several years ago, comes in with fever and chills, not feeling well. The patient is telling me that he was having some diffuse abdominal pain, but he also has hip pain bilateral, but he is telling me this hip pain is going on for years, now it is worse. Patient was admitted and came to the emergency room. Patient is being admitted. The patient had ultrasound of the abdomen and pelvis and there is no hydronephrosis. There is a 1.1 cm stone at the neck of the gallbladder. He had CT abdomen and pelvis, which showed there was no hydronephrosis. LABORATORY DATA: White count on admission was 7.03, hemoglobin of 10, sodium 138, potassium 3.9, and creatinine 2.42. PHYSICAL EXAMINATION GENERAL: He is currently alert and oriented, does not seem to be in acute distress. VITAL SIGNS: Stable. He had temperature of 101 when he first came. HEENT: He does not appear icteric. NECK: Supple. No JVD. No lymphadenopathy. No thyromegaly. CHEST: Clear bilateral. HEART: S1 and S2. No murmurs. ABDOMEN: Soft. IMPRESSION: Fever on admission, source is unclear, complaining of hip pain and the patient has chronic kidney disease status post renal transplant. Agree with blood cultures and urine cultures. I would recommend to do an MRI of the hip mainly on the right and the lumbar spine without contrast to rule out abscess or infection. The patient is telling me since he got the antibiotic, which is ceftriaxone, he is doing better, can discontinue amoxicillin. We will follow with you. Job#: [id number] [place]
--- NOTE | 2018-06-29 19:28 | NUR ---
Patient received lying in bed. Family at bedside. Patient had no complaints of pain. Respirations even and non-labored. Fall precautions maintained. Call light within reach.
[2018-06-29] MEDS: SIMVASTATIN 40 MG TAB PO SCH (21:17)
[2018-06-29] MEDS: ACETAMINOPHEN/CODEINE 300MG - 30MG TAB PO PRN (21:18)
[2018-06-30] VITALS (8 sets, daily range): BP systolic 135–159; BP diastolic 67–85
[2018-06-30] MEDS: SODIUM CHLORIDE 0.9% 1000ML 1,000 ML IV SCH ×3 (03:16→19:16)
[2018-06-30 04:07] LABS: BASOPHILS % 0.1 % (0.0-1.0); EOSINOPHILS # (AUTO) 0.1 (0.0-0.4); EOSINOPHILS % 1.6 % (0.0-6.0); HEMATOCRIT 31.7 % (38.2-49.6); HEMOGLOBIN 10.8 g/dL (14.0-18.0); LYMPHOCYTES # (AUTO) 2.1 (1.0-3.2); LYMPHOCYTES % 28.4 % (18.0-39.1); MEAN CORPUSCULAR HEMOGLOBIN 30.6 pg (28-32); MEAN CORPUSCULAR HGB CONC 34.1 g/dL (31-35); MEAN CORPUSCULAR VOLUME 89.8 fL (81-99); MONOCYTES # (AUTO) 0.7 (0.2-0.8); MONOCYTES % 9.7 % (4.4-11.3); NEUTROPHILS # (AUTO) 4.4 (2.1-6.9); NEUTROPHILS % 59.9 % (38.7-80.0); PLATELET COUNT 235 x10e3/uL (140-360); RED BLOOD COUNT 3.53 x10e6/uL (4.3-5.7); RED CELL DISTRIBUTION WIDTH 14.6 % (11.7-14.4)
--- NOTE | 2018-06-30 04:07 | NUR ---
Blood specimen sent to lab for analysis.
[2018-06-30 04:28] LABS: ANION GAP 14.8 mmol/L (8-16); CALCIUM 9.2 mg/dL (8.4-10.2); CREATININE, SERUM 2.39 mg/dL (0.72-1.25); MAGNESIUM 1.9 MG/DL (1.3-2.1); POTASSIUM 3.8 mmol/L (3.5-5.1)
[2018-06-30] MEDS: INSULIN LISPRO 100 UNIT/1 ML 3ML VIAL SQ SCH ×4 (07:30→21:00)
[2018-06-30] MEDS: GLIPIZIDE 2.5 MG TABCR PO SCH (07:47)
[2018-06-30] MEDS: ALLOPURINOL 100 MG TAB PO SCH ×2 (09:17→16:36)
[2018-06-30] MEDS: PREDNISONE 5 MG TAB PO SCH (09:17)
[2018-06-30] MEDS: FERROUS SULFATE 325 MG TAB PO SCH (09:17)
[2018-06-30] MEDS: METOPROLOL SUCCINATE 50 MG TAB XL PO SCH (09:17)
[2018-06-30] MEDS: BUMETANIDE 1 MG TAB PO SCH ×2 (09:17→16:36)
[2018-06-30] MEDS: SITAGLIPTIN 100 MG TAB PO SCH (09:17)
[2018-06-30] MEDS: FOLIC ACID 1 MG TAB PO SCH (09:17)
[2018-06-30] MEDS: PANTOPRAZOLE SOD 40 MG TABEC PO SCH (09:17)
[2018-06-30] MEDS: CYCLOSPORINE 25 MG CAP PO SCH ×2 (09:17→16:36)
[2018-06-30] MEDS: CEFTRIAXONE SOD 1 GM/NS 50 ML 50 ML IV SCH (12:06)
--- NOTE | 2018-06-30 19:27 | NUR ---
Patient received sitting up in bed. AAO x 3. No c/o pain. No signs of respiratory distress. Fall precautions in place. Call light within reach.
[2018-06-30] MEDS: SIMVASTATIN 40 MG TAB PO SCH (21:17)
[2018-07-01] VITALS (8 sets, daily range): BP systolic 130–157; BP diastolic 62–81
[2018-07-01 03:13] LABS: BASOPHILS % 0.3 % (0.0-1.0); EOSINOPHILS # (AUTO) 0.1 (0.0-0.4); EOSINOPHILS % 1.8 % (0.0-6.0); HEMATOCRIT 33.3 % (38.2-49.6); HEMOGLOBIN 11.2 g/dL (14.0-18.0); LYMPHOCYTES # (AUTO) 2.6 (1.0-3.2); LYMPHOCYTES % 33.1 % (18.0-39.1); MEAN CORPUSCULAR HEMOGLOBIN 30.2 pg (28-32); MEAN CORPUSCULAR HGB CONC 33.6 g/dL (31-35); MEAN CORPUSCULAR VOLUME 89.8 fL (81-99); MONOCYTES # (AUTO) 0.9 (0.2-0.8); MONOCYTES % 11.6 % (4.4-11.3); NEUTROPHILS # (AUTO) 4.1 (2.1-6.9); NEUTROPHILS % 52.9 % (38.7-80.0); PLATELET COUNT 279 x10e3/uL (140-360); RED BLOOD COUNT 3.71 x10e6/uL (4.3-5.7); RED CELL DISTRIBUTION WIDTH 14.5 % (11.7-14.4)
[2018-07-01] MEDS: SODIUM CHLORIDE 0.9% 1000ML 1,000 ML IV SCH ×3 (03:16→20:47)
[2018-07-01 03:53] LABS: ANION GAP 16.6 mmol/L (8-16); CALCIUM 9.1 mg/dL (8.4-10.2); CREATININE, SERUM 2.71 mg/dL (0.72-1.25); MAGNESIUM 2.1 MG/DL (1.3-2.1); POTASSIUM 3.6 mmol/L (3.5-5.1)
--- NOTE | 2018-07-01 07:00 | NUR ---
RCD PT AT BED PT IS ALERT AND ORIENTED PT RESTING ON BED NO SIGNS OF ANY DISTRESS NOTED IV PATENT FAMILY AT BED SIDE BED LOW AND LOCKED CALL LIGHT IN REACH
--- NOTE | 2018-07-01 07:18 | NUR ---
Walking rounds done. Shift report given to oncoming nurse.
[2018-07-01] MEDS: GLIPIZIDE 2.5 MG TABCR PO SCH (07:30)
[2018-07-01] MEDS: INSULIN LISPRO 100 UNIT/1 ML 3ML VIAL SQ SCH ×4 (07:30→21:14)
[2018-07-01] MEDS: PANTOPRAZOLE SOD 40 MG TABEC PO SCH (09:00)
[2018-07-01] MEDS: PREDNISONE 5 MG TAB PO SCH (09:00)
[2018-07-01] MEDS: ALLOPURINOL 100 MG TAB PO SCH ×2 (09:00→17:00)
[2018-07-01] MEDS: SITAGLIPTIN 100 MG TAB PO SCH (09:00)
[2018-07-01] MEDS: METOPROLOL SUCCINATE 50 MG TAB XL PO SCH (09:00)
[2018-07-01] MEDS: AMLODIPINE BESYLATE 10 MG TAB PO SCH (09:00)
[2018-07-01] MEDS: BUMETANIDE 1 MG TAB PO SCH ×2 (09:00→17:00)
[2018-07-01] MEDS: FERROUS SULFATE 325 MG TAB PO SCH (09:00)
[2018-07-01] MEDS: CYCLOSPORINE 25 MG CAP PO SCH ×2 (09:00→17:00)
[2018-07-01] MEDS: FOLIC ACID 1 MG TAB PO SCH (09:00)
--- NOTE | 2018-07-01 10:44 | NUR ---
CASE MANAGEMENT ASSESSMENT Plumber'S Helper to bedside to discuss plan of care with patient/family. CM/SW role and care transitions discussed. Anticipated discharge plan discussed along with duration of care. CM/SW discussed patients right to make decisions in care. CM/SW work hours given. Daughter Jaqueline at bedside Patient lives: with daughter Nenita Admit/Transfer: thru ED Hospital/ER visits since last admit: hospitalized here in April 2018; no ED visits between these two admissions POA/Emergency contact: daughter Joy Ordaz [phone] Current/Previous Home Health: none PCP/Follow-up Care: Dr. Rodolfo Ho; pt informed regarding recommendation to follow up with a doctor within 7 days of discharge. He acknowledged. Current/Previous DME: walker Medications (referring to index hospitalization or the first time you were in the hospital) a. Were changes made in your medications when you were in the hospital on April 2018? yes; pt stated he was put on antibiotics for 10 days b. Did you understand the changes? yes c. Were you able to obtain your new medications right away? yes d. Were you able to take your medications like the doctor wanted you to? yes e. Did the hospital give you an accurate, easy to understand list of medications when you left? yes Scale of 1-10 how comfortable does patient feel with disease management in outpatient settin Other Services: none Employment Status: retired Areas of Concerns: acute renal failure Referral Needs: none Education Needs: medical management IMM/MENESES given and signed (if applicable): IMM; explained to pt and his daughter. they verbalized understanding. Signed copy in chart. [place] copy provided Goal for discharge: return home CM/SW left business card at the bedside with contact information. Name and number was also written on the patients whiteboard. Patient verbalized understanding of discussion. CM will follow-up with ongoing discharge and transition of care needs.
[2018-07-01] MEDS: CEFTRIAXONE SOD 1 GM/NS 50 ML 50 ML IV SCH (12:00)
--- NOTE | 2018-07-01 13:30 | NUR ---
PT WENT TO PROCEDURE IN SAFE CONDITION
--- NOTE | 2018-07-01 15:11 | Diagnostic Imaging Report ---
TECHNIQUE: Magnetic resonance imaging of the LEFT HIP was performed WITHOUT injected contrast. HISTORY: Hip pain, evaluate for infection COMPARISON: None available. FINDINGS: Bone: No focal or infiltrative bone marrow replacing abnormality. No osteonecrosis or acute fracture. Femoroacetabular Joint: Joint effusion. Acetabular labrum: Diffuse degenerative labral tearing. Articular Cartilage: Advanced cartilage loss with areas of full-thickness erosion, subchondral edema, and cystic change Muscle and tendons: The visualized tendons appear intact. Soft tissues: Soft tissue edema around the left hip. No fluid collection. IMPRESSION: Severe left hip osteoarthritis with effusion, full-thickness cartilage loss, and subchondral edema/cystic change. Signed by: Dr. Deonte Meade M.D. on 07/01/2018 3:08 PM
--- NOTE | 2018-07-01 15:37 | Diagnostic Imaging Report ---
History: Rule out infection Comparison studies: None Technique: Sagittal, coronal and axial T2 , sagittal T1 and IR, axial spin density oblique. Intravenous contrast: None Findings: Number of lumbar vertebral bodies:5 Alignment: Grade 1 anterolisthesis of L5 over S1 (1 cm with bilateral L5 spondylolysis.No scoliosis. Soft tissues: No T2 hyperintense inflammatory changes. Small bilateral kidneys incidentally noted secondary to atrophy Paraspinal muscles: No signal abnormalities. No atrophy. Lower thoracic cord:Normal in signal and morphology. The tip of the conus is at L1. Cauda equina: No masses. No arachnoiditis. Vertebrae: Normal in height and signal intensity. No compression fractures, infection or neoplasm. Degenerative changes: L1-L2: No abnormalities. L2-L3: No abnormalities. L3-L4: Patent canal and foramina. L4-L5: Mild disc degeneration with loss of T2 signal. Mild diffuse disc bulge and mild facet hypertrophy without significant canal stenosis and mild left foraminal narrowing. Trace of fluid at the bilateral facet joints. L5-S1: Disc degeneration with loss of T2 signal and decreased intervertebral space. Uncoverage of superior disc. No significant canal stenosis. Bilateral facet hypertrophy and grade 1 anterolisthesis results in severe bilateral foraminal narrowing with impingement of the exiting L5 nerve root. Additional findings: None IMPRESSION: Severe bilateral L5-S1 foraminal narrowing secondary to grade 1 anterolisthesis and bilateral facet hypertrophy. Impingement of the exiting L5 nerve root bilaterally. Bilateral L5 pars defect. Mild facet hypertrophy at L4-L5 with mild synovitis changes. Signed by: DR Chetan Littlejohn M.D. on 07/01/2018 3:34 PM
--- NOTE | 2018-07-01 16:27 | NUR ---
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 Labs and meds reviewed. 72yo M, who was admitted for fever and chills. Pt had hx of kidney transplant about 12years ago. Visited pt in room who denied significant wt loss, denied decrease in appetite [employer]. Pt denied chewing/swallowing problems and nausea/vomiting. RN recorded 75-100% meal intake since admission. LBM 07/01. Will continue to monitor and follow. Current Diet: renal/ADA diet Malnutrition Evaluation (07/01/18) The patient does not meet criteria for a specified degree of malnutrition at this time. Will re-evaluate at follow-up as appropriate. Diet Education Needs Assessment: Diet education not indicated. Nutrition Care Level: low Signed: Mattie David, MS, RD, LD
--- NOTE | 2018-07-01 19:04 | NUR ---
PT RESTING ON BED BED SIDE REPORT GIVEN TO ONCOMING NURSE
[2018-07-01] MEDS: SIMVASTATIN 40 MG TAB PO SCH (21:16)
[2018-07-02 04:00] VITALS: BP 126/68
[2018-07-02 05:15] LABS: BASOPHILS % 0.1 % (0.0-1.0); EOSINOPHILS # (AUTO) 0.1 (0.0-0.4); EOSINOPHILS % 1.6 % (0.0-6.0); HEMATOCRIT 34.2 % (38.2-49.6); HEMOGLOBIN 11.3 g/dL (14.0-18.0); LYMPHOCYTES # (AUTO) 2.4 (1.0-3.2); LYMPHOCYTES % 34.5 % (18.0-39.1); MEAN CORPUSCULAR HEMOGLOBIN 30.1 pg (28-32); MONOCYTES # (AUTO) 0.7 (0.2-0.8); MONOCYTES % 10.3 % (4.4-11.3); NEUTROPHILS # (AUTO) 3.7 (2.1-6.9); NEUTROPHILS % 53.1 % (38.7-80.0); PLATELET COUNT 266 x10e3/uL (140-360); RED BLOOD COUNT 3.76 x10e6/uL (4.3-5.7); RED CELL DISTRIBUTION WIDTH 14.4 % (11.7-14.4)
[2018-07-02 05:51] LABS: ANION GAP 15.6 mmol/L (8-16); CALCIUM 8.8 mg/dL (8.4-10.2); CREATININE, SERUM 3.29 mg/dL (0.72-1.25); MAGNESIUM 1.9 MG/DL (1.3-2.1); POTASSIUM 3.6 mmol/L (3.5-5.1)
[2018-07-02] MEDS ORDERED: TYLENOL WITH C1 EACH PO (06:55)
[2018-07-02] MEDS ORDERED: NORVASC10 MG PO (06:58)
[2018-07-02] MEDS: INSULIN LISPRO 100 UNIT/1 ML 3ML VIAL SQ SCH ×2 (07:30→11:30)
[2018-07-02] MEDS: GLIPIZIDE 2.5 MG TABCR PO SCH (07:30)
[2018-07-02 07:39] VITALS: BP 120/59
[2018-07-02] MEDS: CYCLOSPORINE 25 MG CAP PO SCH (08:45)
[2018-07-02] MEDS: FERROUS SULFATE 325 MG TAB PO SCH (08:45)
[2018-07-02] MEDS: BUMETANIDE 1 MG TAB PO SCH (08:45)
[2018-07-02] MEDS: AMLODIPINE BESYLATE 10 MG TAB PO SCH (08:46)
[2018-07-02] MEDS: PREDNISONE 5 MG TAB PO SCH (08:46)
[2018-07-02] MEDS: METOPROLOL SUCCINATE 50 MG TAB XL PO SCH (08:46)
[2018-07-02] MEDS: SITAGLIPTIN 100 MG TAB PO SCH (08:46)
[2018-07-02] MEDS: PANTOPRAZOLE SOD 40 MG TABEC PO SCH (08:46)
[2018-07-02] MEDS: FOLIC ACID 1 MG TAB PO SCH (08:46)
[2018-07-02] MEDS: ALLOPURINOL 100 MG TAB PO SCH (08:47)
[2018-07-02 08:59] VITALS: BP 120/59
[2018-07-02] MEDS: SODIUM CHLORIDE 0.9% 1000ML 1,000 ML IV SCH (11:16)
[2018-07-02 11:30] VITALS: BP 134/63
[2018-07-02] MEDS: CEFTRIAXONE SOD 1 GM/NS 50 ML 50 ML IV SCH (11:55)
--- NOTE | 2018-07-02 13:30 | NUR ---
PAGED AND NOTIFIED THE DISCHARGE APPROVAL BY JOAO ESPINOSA GOT THE DISCHARGE ORDER
[2018-07-02] MEDS: ACETAMINOPHEN/CODEINE 300MG - 30MG TAB PO PRN (13:33)
--- NOTE | 2018-07-02 14:10 | NUR ---
PT WENT HOME IN SAFE CONDITION WITH HIS
--- NOTE | 2018-07-03 06:37 | Discharge Summary ---
ADMISSION DIAGNOSES: Left lower extremity cellulitis with sepsis, renal transplant history, hypertension, type 2 diabetes, hyperlipidemia, gastroesophageal reflux disease, and chronic kidney disease 3. DISCHARGE DIAGNOSES: Left lower extremity cellulitis with sepsis, renal transplant history, hypertension, type 2 diabetes, hyperlipidemia, gastroesophageal reflux disease, chronic kidney disease 3, osteoarthritis of bilateral hips, and rule out deep venous thrombosis. HISTORY: The patient has a history of type 2 diabetes, hypertension, lymphedema of the lower extremities, CKD 3-4, hyperlipidemia, gout, and GERD. SURGICAL HISTORY: Kidney transplant in 2005. FAMILY HISTORY: The patient's mother has diabetes. SOCIAL HISTORY: The patient denies tobacco, alcohol, or illicit drug use. HOSPITAL COURSE: A 72-year-old male complains of left lower extremity pain described as intermittent and sharp over the last week. He had a fever of 101 prior to admission. He has chronic lymphedema of the lower extremities, but says the edema has been worsening. He admits to intermittent popping of his joints. Pain is worse with movement. He denies any fall and trauma. On admission, the patient was started on Rocephin and vancomycin. ID was consulted. The patient was given amoxicillin for life per his Transplant team. Per Infectious Disease recommendation, the amoxicillin was stopped. The patient was only continued on Rocephin. Nephrology was consulted to monitor the kidney function. The patient continued all home meds including meds for immunosuppression. Bilateral lower extremity venous doppler was negative. Ultrasound of the abdomen showed no hydronephrosis or focal abnormality identified involving the transplanted kidney. CT of the abdomen and pelvis showed no CT finding to definitively explain a source of infection, no hydronephrosis of the transplanted kidney, probable cholelithiasis, colonic diverticulosis, coronary atherosclerosis, L5 spondylolysis with associated anterolisthesis, severe bilateral hip arthroplasty, considerations include amyloid arthroplasty, CPPD arthropathy, and chronic inflammation. Chest x-ray was negative. MRI of the spine showed severe bilateral L5-S1 foraminal narrowing secondary to grade 1 anterolisthesis and bilateral facet hypertrophy and impingement of the existing L5 nerve root bilaterally. MRI of the hip showed severe left hip osteoarthritis with effusion, full thickness cartilage loss and subchondral edema/cystic change. Ortho was consulted, who recommended the patient follow up outpatient for pain control. Throat cultures were negative. Blood cultures were negative. Urine cultures were negative. Flu was negative and group strep A was negative. The patient will discharge home, off antibiotics per Infectious Disease. He was given a Tylenol No. 3 for pain. The patient and son understand discharge instructions and agreed to plan. He will follow up with primary care in 1-2 weeks and Ortho as discussed. Vital signs stable, the patient afebrile. Dictated by Christy Pimentel NP MD BERKLEY Chow/MODNeha /[id number]
== END 2018-07-02 14:09 | disposition home or self-care (01) | DRG 872 ==
LOC: ER 07:46 → ERHOLD 13:05 → MED/SURG2 15:15
PROVIDERS: ADMIT Internal Medicine; ATTEND Internal Medicine
DX: A41.9 Sepsis, unspecified organism (principal); L03.116 Cellulitis of left lower limb; Z94.0 Kidney transplant status; E11.22 Type 2 diabetes mellitus with diabetic chronic kidney disease; Z79.4 Long term (current) use of insulin; E78.5 Hyperlipidemia, unspecified; K21.9 Gastro-esophageal reflux disease without esophagitis; M1A.9XX0 Chronic gout, unspecified, without tophus (tophi); I89.0 Lymphedema, not elsewhere classified; M16.12 Unilateral primary osteoarthritis, left hip; Z99.2 Dependence on renal dialysis; D63.1 Anemia in chronic kidney disease; I12.9 Hypertensive chronic kidney disease with stage 1 through stage 4 chronic kidney disease, or unspecified chronic kidney disease; N18.3 Chronic kidney disease, stage 3 (moderate); M48.07 Spinal stenosis, lumbosacral region
CPT/HCPCS: 36415; 71045; 72148; 74176; 76705; 80048; 80053; 81001; 82607; 82728; 82746; 82948; 83518; 83540; 83605; 83735; 83880; 84100; 84466; 85025; 85610; 85730; 87040; 87070; 87086; 87400; 93970; 99284; J0696; J3370; J7030; J7512; J7515